=== PATIENT | male | born 1985 | race African-American/Black ===

== ENCOUNTER 2021-10-18 10:04 | Inpatient (IN) ==
[2021-10-18] MEDS ORDERED: ONDANSETRON INJ 2 MG/ML 2 ML VIAL IV STA (10:44)
[2021-10-18] MEDS ORDERED: SODIUM CHLORIDE 0.9% 500 ML IV STA (10:44)
--- NOTE | 2021-10-18 11:02 | XRay Report ---
SINGLE VIEW CHEST CLINICAL HISTORY: Atypical chest pain. Reported history of sickle cell disease. FINDINGS: An AP, portable, upright chest radiograph is obtained. No prior studies are available for c omparison at the time of dictation. The cardiomediastinal silhouette is mildly enlarged. The lungs a nd pleural spaces are clear. No pneumothorax is seen. Sclerotic change is present in both humeral hea ds suggesting avascular necrosis IMPRESSION: 1. The lungs are clear. 2. Mild cardiac enlargement. 3. Findings suggest avascular necrosis of the humeral heads. ACT 112: Negative or not required by law. Electronically signed by: Jose Antonio Angelo M.D. 10/18/2021 11:00 AM
--- NOTE | 2021-10-18 11:24 | Emergency Department Note ---
Impression & Plan Sickle cell anemia with pain ED Provider Note NAME: TAMRA [id number] MARGARITA AGE: 36 SEX: M : 1985 ARRIVES VIA: Ambulance INFORMANT: Patient, ED PROVIDER(S): Enio Ny DO CHIEF COMPLAINT: Sickle cell pain HPI: The patient is a 36-year-old male who presented to the emergency department for an evaluation of sickle cell pain. He notices pain in his hips and his knees. He also notices chest pain as well as upper back pain. He states this is consistent with his previous history of sickle cell crisis. He has a history of cholecystectomy in the past. He does take hydroxyurea. He has been given NSAIDs at the senior living prior to coming to the emergency department. He denies having any nausea or vomiting. He denies having any fever or hemoptysis. He states he has been compliant with his usual outpatient medications. ROS: See above HPI for pertinent positives & negatives. A total of 10 systems reviewed and were otherwise negative. PAST MEDICAL HISTORY: See Below PAST SURGICAL HISTORY: See Below FAMILY HISTORY: See Below SOCIAL HISTORY: See Below HOME MEDICATIONS: See Below ALLERGIES: See Below VITALS: See Below PHYSICAL EXAMINATION: GENERAL: Patient is awake alert in no acute distress patient is resting comfortably and showing no signs of anxiety EYES: The conjunctivae are clear. The pupils are round and reactive. EARS, NOSE, MOUTH AND THROAT: The nose is without any evidence of any deformity. NECK: The neck is nontender and supple. RESPIRATORY: Normal respiratory effort is noted there is no evidence of wheezing rhonchi or rales CARDIOVASCULAR: Regular rate and rhythm noted there no murmurs rubs or gallops normal S1 normal S2. GASTROINTESTINAL: The abdomen is soft. Abdomen is nontender. MUSCULOSKELETAL/EXTREMITIES: There is no evidence of gross deformity full range of motion is noted in the hips and shoulders. SKIN: There is no obvious evidence of any rash. There are no petechiae, pallor or cyanosis noted. NEUROLOGIC: Patient is awake alert and oriented x3 strength is symmetric patellar reflexes are 2+ bilaterally MEDICAL DECISION MAKING: Patient is a 36-year-old male who presented to the emergency department for an evaluation of pain. The patient has a history of sickle cell disease. The patient states he had pain today consistent with his previous episode of sickle cell crisis. The patient was treated with pain medication in the emergency department. He he was also treated with a small fluid bolus. I discussed patient's laboratory and radiographic studies with him. Ultimately he had continued and ongoing pain. He was switched to Dilaudid. Given his difficulty of maintaining good pain control I discussed his case with the on-call [facility]. They have agreed to evaluate the patient in the emergency department for further management and disposition. Triage Nursing notes reviewed. Prior medical records reviewed Vital Signs: reviewed and remarkable for no significant abnormalities Differential diagnosis: Musculoskeletal, disc herniation, fracture, metastatic disease, cord compression, discitis, sciatica, cauda equina, infection, aortic disease, renal colic, gastrointestinal, as well as other pathologies. ER treatment provided: See below Diagnostics interpreted by me: ECG: EKG was obtained in the emergency department. My interpretation is normal sinus rhythm at 61 bpm. There was no ectopy. Nonspecific T wave abnormalities were noted. No previous tracing was available. Cardiac Monitoring: An order was placed for continuous cardiac monitoring. The monitor shows a rate of 67 bpm with sinus rhythm. Laboratory studies: As stated above and show below. Imaging studies: See below Consultation(s): Discussed this case with Tammie who is on-call for the [facility]. Past Med/Surg History Medical History Sickle cell anemia Surgical History Hx of cholecystectomy Social History Smoking Status: Current every day smoker Feels Safe at Home: Yes Home Meds Home Medications Medication Instructions Recorded Confirmed aripiprazole 20 mg tablet 20 mg PO HS 10/18/21 10/18/21 deferasirox 1,120 mg PO DAILY 10/18/21 10/18/21 folic acid 1 mg PO DAILY 10/18/21 10/18/21 hydroxyurea 500 mg capsule 1,000 mg PO HS 10/18/21 10/18/21 sertraline 50 mg PO HS 10/18/21 10/18/21 Results & Data (ED) Vital Signs Vital Signs - 24 hr 10/18/21 10:14 10/18/21 10:44 10/18/21 11:56 Temperature 36.8 C Temperature Source Oral Pulse Rate 60 Pulse Rate [Apical] 59 L Respiratory Rate 18 18 Respiratory Effort / Characteristics Non-Labored Non-Labored Respiratory Depth Normal Normal Blood Pressure 119/72 Blood Pressure [Right Arm] 106/65 Blood Pressure Mean 87 Blood Pressure Mean [Right Arm] 78 Pulse Oximetry 95 98 Oxygen Delivery Method Room Air Room Air Room Air Sepsis Recent Fever Within 48 Hours No Sepsis New/Unexplained Change in Mental Status No Sepsis Action Taken by Nursing No Action Required 10/18/21 13:56 Temperature Temperature Source Pulse Rate Pulse Rate [Apical] 67 Respiratory Rate 18 Respiratory Effort / Characteristics Respiratory Depth Blood Pressure Blood Pressure [Right Arm] 107/66 Blood Pressure Mean Blood Pressure Mean [Right Arm] 79 Pulse Oximetry 97 Oxygen Delivery Method Room Air Sepsis Recent Fever Within 48 Hours Sepsis New/Unexplained Change in Mental Status Sepsis Action Taken by Group Home Medications Current Medication List: was personally reviewed by me Laboratory Data Attestation: I reviewed the patient's lab results. Result diagrams: 10/18/21 11:35 10/18/21 11:35 Lab Results 10/18/21 10/18/21 Range/Units 11:35 11:35 WBC 9.93 (4.8-10.8) K/uL RBC 2.56 L (4.7-6.1) M/uL Hgb 9.4 L (14.0-18.0) g/dL Hct 27.9 L (42-52) % MCV 109.0 H (80-100) fL MCH 36.7 H (25-34) pg MCHC 33.7 (32-36) g/dL RDW Std Deviation 75.8 H (36.4-46.3) fL RDW Coeff of Noah 20.2 H (11.5-14.5) % Plt Count 332 (130-400) K/uL MPV 9.7 (7.4-10.4) fL Immature Gran % (Auto) 1.0 % Neut % (Auto) 59.7 % Lymph % (Auto) 24.9 % Craven % (Auto) 13.3 % Eos % (Auto) 0.6 % Baso % (Auto) 0.5 % Reticulocyte % (Auto) 20.7 H (0.5-2.0) % Neut # (Auto) 5.93 (1.4-6.5) K/uL Lymph # (Auto) 2.47 (1.2-3.4) K/uL Craven # (Auto) 1.32 H (0.11-0.59) K/uL Eos # (Auto) 0.06 (0-0.5) K/uL Baso # (Auto) 0.05 (0-0.2) K/uL Reticulocyte # 0.53 H (0.02-0.10) 10^6/uL Immature Gran # (Auto) 0.10 H (0.00-0.02) K/uL Absolute Nucleated RBC 4.39 H (0-0) K/uL Nucleated RBC % (auto) 44.2 % Platelet Estimate Normal (Normal) Polychromasia 1+ Hypochromasia Present Anisocytosis Present Macrocytosis Present Sickle Cells 1+ [place] Bodies 2+ Sodium 140 (136-145) mmol/L Potassium 3.9 (3.5-5.1) mmol/L Chloride 105 (98-107) mmol/L Carbon Dioxide 28 (21-32) mmol/L Anion Gap 7 (3-11) BUN 8 (6-23) mg/dl Creatinine 0.64 (0.6-1.4) mg/dl Est Cr Clr Drug Dosing 146.3 ml/min Est GFR ( Amer) 144.0 ml/min Est GFR (Non-Af Amer) 124.2 ml/min BUN/Creatinine Ratio 12.5 (10-20) Glucose 88 (70-99(Fasting)) mg/dl Calcium 9.0 (8.5-10.1) mg/dl Total Bilirubin 3.2 H (0.2-1.0) mg/dl AST 41 H (13-39) U/L ALT 46 (7-52) U/L Alkaline Phosphatase 162 H (34-104) U/L Troponin I High Sens 5.0 (0-20) pg/ml Total Protein 7.5 (6.0-8.3) gm/dl Albumin 4.6 (3.4-5.0) gm/dl Globulin 2.9 (2.5-4.0) gm/dl Albumin/Globulin Ratio 1.6 (0.9-2) Lipase 20 (11-82) U/L Administered Medications Hydromorphone HCl (Hydromorphone Inj 1 Mg/Ml Syringe) 1 mg IV Q15M PRN PRN Reason: Pain Stop: 11/01/21 14:39 Last Admin: 10/18/21 14:52 Dose: 1 mg Documented by: [id number] Morphine Sulfate (Morphine Sulfate 4 Mg/Ml 1 Ml Carp\Vial) 4 mg IV Q15M PRN PRN Reason: Pain Stop: 11/01/21 10:43 Last Admin: 10/18/21 13:01 Dose: 4 mg Documented by: [id number] Admin: 10/18/21 11:50 Dose: 4 mg Documented by: [id number] Discontinued Medications Sodium Chloride (Nss) 500 mls @ 999 mls/hr IV .Q31M STA Stop: 10/18/21 11:14 Last Infusion: 10/18/21 12:38 Dose: 0 mls/hr Documented by: [id number] Admin: 10/18/21 11:49 Dose: 999 mls/hr Documented by: [id number] Ondansetron HCl (Ondansetron Inj 2 Mg/Ml 2 Ml Vial) 4 mg IV NOW STA Stop: 10/18/21 10:45 Last Admin: 10/18/21 11:49 Dose: 4 mg Documented by: [id number] Imaging Data Radiologist's Impression: Chest X-Ray 10/18/21 10:44 SINGLE VIEW CHEST CLINICAL HISTORY: Atypical chest pain. Reported history of sickle cell disease. FINDINGS: An AP, portable, upright chest radiograph is obtained. No prior studies are available for comparison at the time of dictation. The cardiomedia stinal silhouette is mildly enlarged. The lungs and pleural spaces are clear. No pneumothorax is seen. Sclerotic change is present in both humeral heads suggesting avascular necrosis IMPRESSION: 1. The lungs are clear. 2. Mild cardiac enlargement. 3. Findings suggest avascular necrosis of the humeral heads. ACT 112: Negative or not required by law. Electronically signed by: Jose Antonio Angelo M.D. 10/18/2021 11:00 AM Discharge Plan Visit Data Chief Complaint: Pain (Generalized) ED Provider: Enio Ny Discharge Problem: Sickle cell anemia with pain Patient Disposition: Being Evaluated by Hospitalist Forms Stand Alone Forms: [facility] Prescriptions Prescriptions: No Action hydroxyurea 500 mg Capsule 1,000 mg PO HS RF: 0 aripiprazole 20 mg Tablet 20 mg PO HS RF: 0 deferasirox 360 MG 1,120 mg PO DAILY RF: 0 folic acid 1 MG 1 mg PO DAILY RF: 0 sertraline 50 MG 50 mg PO HS RF: 0 Referrals Referrals: Torey MORLEY [Primary Care Provider] -
[2021-10-18] MEDS: MoRPHine SULFATE 4 MG/ML 1 ML CARP\\VIAL IV PRN ×2 (11:50→13:01)
[2021-10-18 12:04] LABS: Reticulocyte % 20.7 % (0.5-2.0); Reticulocytes # 0.53 10^6/uL (0.02-0.10)
[2021-10-18 12:32] LABS: Anisocytosis Present; Basophils # (auto) 0.05 K/uL (0-0.2); Basophils % (auto) 0.5 %; Eosinophils # (auto) 0.06 K/uL (0-0.5); Eosinophils % (auto) 0.6 %; Hematocrit (blood only) 27.9 % (42-52); Hemoglobin 9.4 g/dL (14.0-18.0); Howell-Jolly Bodies 2+; Hypochromasia Present; Lymphocytes # (auto) 2.47 K/uL (1.2-3.4); Lymphocytes % (auto) 24.9 %; Macrocytosis Present; Mean Corpuscular Hemoglobin 36.7 pg (25-34); Mean Corpuscular Hgb Conc 33.7 g/dL (32-36); Mean Platelet Volume 9.7 fL (7.4-10.4); Monocytes # (auto) 1.32 K/uL (0.11-0.59); Monocytes % (auto) 13.3 %; Neutrophils # (auto) 5.93 K/uL (1.4-6.5); Neutrophils % (auto) 59.7 %; Nucleated RBC # (auto) 4.39 K/uL (0-0); Nucleated RBC % (auto) 44.2 %; Platelet Count 332 K/uL (130-400); Platelet Estimate Normal (Normal); Polychromasia 1+; RDW Coefficient of Variation 20.2 % (11.5-14.5); RDW Standard Deviation 75.8 fL (36.4-46.3); Red Blood Count 2.56 M/uL (4.7-6.1); Sickle Cells 1+; White Blood Count 9.93 K/uL (4.8-10.8)
[2021-10-18 12:36] LABS: Albumin Globulin Ratio 1.6 (0.9-2); Albumin Level 4.6 gm/dl (3.4-5.0); BUN Creatinine Ratio 12.5 (10-20); Bilirubin,Total 3.2 mg/dl (0.2-1.0); Creatinine Clr Calc Pharmacy 146.3 ml/min; Est GFR (Non-African American) 124.2 ml/min; Globulin 2.9 gm/dl (2.5-4.0); Potassium 3.9 mmol/L (3.5-5.1); Total Protein 7.5 gm/dl (6.0-8.3)
[2021-10-18] MEDS: HYDROmorphone INJ 1 MG/ML SYRINGE IV PRN ×2 (14:52→15:44)
--- NOTE | 2021-10-18 14:53 | History & Physical Report ---
Date of Service October 18, 2021 Assessment & Plan (1) Sickle cell anemia with pain: (2) Sickle cell crisis: (3) Avascular necrosis of bone of shoulder: Plan: This is a 36 yr old incarcerated male from [facility] who presents with b/l knee and chest pain off and on x 3 days. Sickle cell crisis Sickle cell anemia Bilateral knee pain Admit to telemetry Will administer 1 L of IV fluid, received 500 mL in ED Encourage patient to hydrate frequently Control pain with scheduled Tylenol, as needed oxycodone Monitor CBC Continue hydroxyurea, folic acid, deferasirox obtain xr of b/l knees Recent outpatient labs from assisted reveal hemoglobin 9.7, iron 254, TIBC 250, percent saturation 73%, transferrin 242 -from 10/05/2021 Avascular necrosis of bilateral humeral heads Noted on chest x-ray Patient currently denying shoulder pain Consult orthopedics further recommendations, likely secondary to sickle cell disease Personality disorder Anxiety Continue Abilify and Zoloft Nicotine dependence Smokes e-cigarette in assisted declines patch DVT ppx: SQ Lovenox Dispo: tele PCP: [facility] FULL CODE Pt was seen and examined in collaboration with Dr. Pryor, please see addendum History of Present Illness Chief Complaint: B/L Knee Pain x 3 days. Primary Care Provider: [facility] This is a 36 yr old incarcerated male from [facility] who presents with b/l knee and chest pain off and on x 3 days. Pt complains of b/l knee pain x 3 days. Pain is worsening. He also complains of CP that is located in upper central chest. Chest pain is not made worse with exertion, deep breath or cough. He has tried ibuprofen with minimal relief. In ED he received IV morphine w/o relief. He denies recent illness, f/c/s, dizziness, lightheaded, syncope, sob, cough, uri sx, n/v/d, abd pain. He has hx of sickle cell disease. He was dx when he was 2-3 yrs old. +FH of sickle cell in both parents. He does not take any pain medications for his sickle cell. Previously he had taken percocet in past prior to being incarcerated. He would take as needed. He is on deferasirox, folic acid and hydroxyurea for sickle cell. His appetite is good. He is unsure what previous hgb levels were. His records sent from facility were reviewed. Previous hgb on 10/05 was 9.7. Home Medications Medication Instructions Recorded Confirmed Type aripiprazole 20 mg tablet 20 mg PO HS 10/18/21 10/18/21 History deferasirox 1,120 mg PO DAILY 10/18/21 10/18/21 History folic acid 1 mg PO DAILY 10/18/21 10/18/21 History hydroxyurea 500 mg capsule 1,000 mg PO HS 10/18/21 10/18/21 History sertraline 50 mg PO HS 10/18/21 10/18/21 History Past Med/Surg History Medical History Anxiety Personality disorder Sickle cell anemia Surgical History Hx of cholecystectomy Family History (Updated 10/18/21 @ 15:19 by Tammie Richard PA-C) Father Sickle cell anemia Mother Sickle cell anemia Social History (Updated 10/18/21 @ 15:19 by Tammie Richard PA-C) Smoking Status: Former smoker Tobacco Type: E-cigarettes / Vaping Second Hand Exposure: No; Do You Dip or Chew Tobacco: No; Tobacco Cessation Education Requested by Patient: No Hx Alcohol Use: No Hx Substance Use: No Preferred Language: [place] Communication Ability: Effective 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 Pryor addendum for physical exam findings Results & Data Results & Data ([facility]) Vital Signs (Past 12 Hours) Vital Signs Temp Pulse Pulse Resp BP BP Pulse Ox 10/18/21 13:56 67 18 107/66 97 10/18/21 11:56 59 L 18 106/65 98 10/18/21 10:14 36.8 C 60 18 119/72 95 Diagnostic Findings Chest X-Ray 10/18/21 10:44 SINGLE VIEW CHEST CLINICAL HISTORY: Atypical chest pain. Reported history of sickle cell disease. FINDINGS: An AP, portable, upright chest radiograph is obtained. No prior st udies are available for comparison at the time of dictation. The cardiomediastinal silhouette is mildly enlarged. The lungs and pleural spaces are clear. No pneumothorax is seen. Sclerotic change is present in both humeral heads suggesting avascular necrosis IMPRESSION: 1. The lungs are clear. 2. Mild cardiac enlargement. 3. Findings suggest avascular necrosis of the humeral heads. ACT 112: Negative or not required by law. Electronically signed by: Jose Antonio Angelo M.D. 10/18/2021 11:00 AM Medications Administered Medication List Hydromorphone HCl (Hydromorphone Inj 1 Mg/Ml Syringe) 1 mg IV Q15M PRN PRN Reason: Pain Stop: 11/01/21 14:39 Last Admin: 10/18/21 14:52 Dose: 1 mg Documented by: [id number] Morphine Sulfate (Morphine Sulfate 4 Mg/Ml 1 Ml Carp\Vial) 4 mg IV Q15M PRN PRN Reason: Pain Stop: 11/01/21 10:43 Last Admin: 10/18/21 13:01 Dose: 4 mg Documented by: [id number] Admin: 10/18/21 11:50 Dose: 4 mg Documented by: [id number] Discontinued Medications Sodium Chloride (Nss) 500 mls @ 999 mls/hr IV .Q31M STA Stop: 10/18/21 11:14 Last Infusion: 10/18/21 12:38 Dose: 0 mls/hr Documented by: [id number] Admin: 10/18/21 11:49 Dose: 999 mls/hr Documented by: [id number] Ondansetron HCl (Ondansetron Inj 2 Mg/Ml 2 Ml Vial) 4 mg IV NOW STA Stop: 10/18/21 10:45 Last Admin: 10/18/21 11:49 Dose: 4 mg Documented by: [id number] ECG Rate (beats per minute): 61 Rhythm: normal sinus COVID-19 Results Results COVID-19 Adm Lab Results: RBC 2.56 M/uL (4.7-6.1) L 10/18/21 WBC 9.93 K/uL (4.8-10.8) 10/18/21 Hgb 9.4 g/dL (14.0-18.0) L 10/18/21 Hct 27.9 % (42-52) L 10/18/21 Plt Count 332 K/uL (130-400) 10/18/21 Neutrophils (%) (Auto) 59.7 % 10/18/21 Lymphocytes (%) (Auto) 24.9 % 10/18/21 Monocytes # (Auto) 1.32 K/uL (0.11-0.59) H 10/18/21 Eosinophils # (Auto) 0.06 K/uL (0-0.5) 10/18/21 Immature Granulocyte % (Auto) 1.0 % 10/18/21 Neutrophils # (Auto) 5.93 K/uL (1.4-6.5) 10/18/21 Lymphocytes # (Auto) 2.47 K/uL (1.2-3.4) 10/18/21 Monocytes # (Auto) 1.32 K/uL (0.11-0.59) H 10/18/21 Eosinophils # (Auto) 0.06 K/uL (0-0.5) 10/18/21 Basophils # (Auto) 0.05 K/uL (0-0.2) 10/18/21 Immature Granulocyte # (Auto) 0.10 K/uL (0.00-0.02) H 10/18/21 Polychromasia 1+ 10/18/21 Hypochromasia Present 10/18/21 Anisocytosis Present 10/18/21 Macrocytosis Present 10/18/21 Sickle Cells 1+ 10/18/21 [place] Bodies 2+ 10/18/21 Na 140 mmol/L (136-145) 10/18/21 K 3.9 mmol/L (3.5-5.1) 10/18/21 Cl 105 mmol/L (98-107) 10/18/21 CO2 28 mmol/L (21-32) 10/18/21 Anion Gap 7 (3-11) 10/18/21 BUN 8 mg/dl (6-23) 10/18/21 Creatinine 0.64 mg/dl (0.6-1.4) 10/18/21 BUN/Creatinine Ratio 12.5 (10-20) 10/18/21 Glucose Level 88 mg/dl (70-99(Fasting)) 10/18/21 Ca 9.0 mg/dl (8.5-10.1) 10/18/21 Total Bilirubin 3.2 mg/dl (0.2-1.0) H 10/18/21 AST/SGOT 41 U/L (13-39) H 10/18/21 ALT/SGPT 46 U/L (7-52) 10/18/21 Alkaline Phosphatase 162 U/L (34-104) H 10/18/21 Total Protein 7.5 gm/dl (6.0-8.3) 10/18/21 Albumin 4.6 gm/dl (3.4-5.0) 10/18/21 Globulin 2.9 gm/dl (2.5-4.0) 10/18/21 Albumin/Globulin Ratio 1.6 (0.9-2) 10/18/21 SARS-CoV-2, RNA, NAAT NEGATIVE (NEGATIVE) 10/18/21 Chest X-Ray 10/18/21 Code Status & VTE Plan Code Status FULL CODE VTE Prophylaxis Plan VTE Prophylaxis will be ordered: No Supervising Physician Co-Signing Physician Notes Pt is a 36 y/o M from [facility] with hx of sickle cell disease, mood disorder, chronic anemia admitted for vaso occlusive crisis. PE: NAD, well developed Card: Normal S1/S2, no murmur Lungs: CTA, no crackles or wheezing Abd: ND, NT, soft MSK: TTP of the b/l shoulder area (deltoid) and L lateral knee, no swelling of the joints or LE edema Psych: AAOx3, normal affect A/P: Sickle cell disease with Vaso-occlusive crisis: -VSS -increased reti count and chronic anemia on lab - CXR: Lungs are clear but Findings suggest avascular necrosis of the humeral heads. ----- pt was not complaining of shoulder pain: likely chronic in nature ----- however will get ortho consult -will get b/l knee xray - s/p 1.5 L NS bolus - encouraged increased PO intake - per pt he was on prn Percocet at home --- will do Oxycodone 5mg q6hr prn with Tylenol PRN (no need for IV pain meds at this time) -continue home hydroxyurea dose and folic acid -will add daily MVI -trend CBC ---- pt does not know his baseline hgb: but current hgb is similar to the one from 1 week ago -will repeat CMP to trend T bili - Lovenox for DVT ppx Agree with A/P by Tammie Richard PA-C
[2021-10-18] MEDS ORDERED: SODIUM CHLORIDE 0.9% 1000ML 500 ML IV ONE (15:15)
[2021-10-18] MEDS ORDERED: SODIUM CHLORIDE 0.9% 1000ML 1,000 ML IV ONE (15:26)
--- NOTE | 2021-10-18 16:18 | XRay Report ---
XR knee RT 3V, XR knee LT 3V HISTORY: 36 years-old Male r knee pain, sickle cell acute bilateral knee pain in a patient with hist ory of sickle cell anemia COMPARISON: Chest radiograph 10/18/2021 TECHNIQUE: 3 views of the bilateral knees FINDINGS: RIGHT: Heterogeneous sclerotic appearance of the bones with subcortical cyst versus OCD of the lateral femor al condyle measuring 9 mm. No acute fracture, dislocation or opaque foreign body. Small joint effusio n. LEFT: Heterogeneous sclerotic appearance the bones. No acute fracture or dislocation. Trace joint effusion. Enthesophyte of the tibial tuberosity. IMPRESSION: 1. No acute fracture. 2. Subcortical cyst versus OCD of the right lateral femoral condyle. 3. Diffusely heterogeneous sclerotic appearance of the bones likely is likely secondary to chronic an emia associated with the patient's known sickle cell disease. ACT 112: Negative or not required by law. The above report was generated using voice recognition software. It may contain grammatical, syntax o r spelling errors. Electronically signed by: Roge Peña M.D. 10/18/2021 4:16 PM
[2021-10-18] MEDS ORDERED: MAGNESIUM HYDROXIDE SUSP 30 ML UDC PO PRN (17:01)
[2021-10-18] MEDS ORDERED: ALUMINUM/MAGNESIUM SUSP 30 ML UDC PO PRN (17:01)
[2021-10-18] MEDS ORDERED: ACETAMINOPHEN 325 MG TAB PO PRN (17:01)
[2021-10-18] MEDS ORDERED: ONDANSETRON INJ 2 MG/ML 2 ML VIAL IV PRN (17:01)
[2021-10-18] MEDS ORDERED: oxyCODONE HCL IR 5 MG TAB (IMMEDIATE RELEASE) PO PRN (17:01)
[2021-10-18] MEDS: ACETAMINOPHEN 325 MG TAB PO SCH ×2 (17:17→20:54)
[2021-10-18] MEDS: ARIPiprazole 10 MG TAB PO SCH (20:54)
[2021-10-18] MEDS: HYDROXYUREA 500 MG CAP PO SCH (20:54)
[2021-10-18] MEDS: SERTRALINE HCL 50 MG TABLET PO SCH (20:54)
[2021-10-18] MEDS: ENOXAPARIN INJ 40 MG/0.4 ML SYR SQ SCH (21:07)
[2021-10-18] MEDS ORDERED: oxyCODONE HCL IR 5 MG TAB (IMMEDIATE RELEASE) PO STA (21:33)
[2021-10-18] MEDS ORDERED: KETOROLAC TROMETHAMINE 15 MG/ML VIAL IV ONE (23:44)
[2021-10-19 08:07] LABS: Mean Corpuscular Hgb Conc 34.1 g/dL (32-36); Mean Platelet Volume 10.1 fL (7.4-10.4); Platelet Count 315 K/uL (130-400)
[2021-10-19] MEDS: ACETAMINOPHEN 325 MG TAB PO SCH ×4 (08:07→20:55)
[2021-10-19] MEDS: FOLIC ACID 1 MG TAB PO SCH (08:07)
[2021-10-19 08:25] LABS: Albumin Globulin Ratio 1.4 (0.9-2); Albumin Level 4.1 gm/dl (3.4-5.0); BUN Creatinine Ratio 20.3 (10-20); Bilirubin,Total 3.7 mg/dl (0.2-1.0); Calcium 8.7 mg/dl (8.5-10.1); Creatinine Clr Calc Pharmacy 158.7 ml/min; Est GFR (African American) 148.9 ml/min; Est GFR (Non-African American) 128.4 ml/min; Magnesium 1.8 mg/dl (1.7-2.4); Potassium 3.6 mmol/L (3.5-5.1); Total Protein 7.1 gm/dl (6.0-8.3)
[2021-10-19 08:30] LABS: Basophils # (auto) 0.04 K/uL (0-0.2); Basophils % (auto) 0.4 %; Eosinophils # (auto) 0.07 K/uL (0-0.5); Eosinophils % (auto) 0.7 %; Hematocrit (blood only) 27.3 % (42-52); Hemoglobin 9.3 g/dL (14.0-18.0); Immature Granulocytes # (auto) 0.09 K/uL (0.00-0.02); Immature Granulocytes % (auto) 0.9 %; Lymphocytes # (auto) 1.97 K/uL (1.2-3.4); Lymphocytes % (auto) 20.4 %; Mean Corpuscular Hemoglobin 36.8 pg (25-34); Mean Corpuscular Volume 107.9 fL (80-100); Monocytes # (auto) 0.95 K/uL (0.11-0.59); Monocytes % (auto) 9.9 %; Neutrophils # (auto) 6.52 K/uL (1.4-6.5); Neutrophils % (auto) 67.7 %; Nucleated RBC # (auto) 4.01 K/uL (0-0); Nucleated RBC % (auto) 41.7 %; Polychromasia 2+; RDW Coefficient of Variation 19.6 % (11.5-14.5); RDW Standard Deviation 74.9 fL (36.4-46.3); Red Blood Count 2.53 M/uL (4.7-6.1); Sickle Cells 1+; Spherocytes 1+; Target Cells 1+; White Blood Count 9.64 K/uL (4.8-10.8)
--- NOTE | 2021-10-19 09:10 | Hospitalist Progress Note ---
Date of Service October 19, 2021 Assessment & Plan (1) Sickle cell anemia with pain: (2) Avascular necrosis of bone of shoulder: Plan: This is a 36 yr old incarcerated male from [facility] who presents with b/l knee and chest pain off and on x 3 days. Sickle cell crisis Sickle cell anemia Bilateral knee pain, R hip pain Increased reti count on admission (20.7 %) and chronic anemia on lab Hgb above 9 CXR: Lungs are clear but Findings suggest avascular necrosis of the humeral heads. Admitted to telemetry received IVF on admission, cont. w/ IVF Encourage patient to hydrate frequently Control pain with scheduled Tylenol, as needed oxycodone Monitor CBC, retic count, LDH Continue hydroxyurea, folic acid, deferasirox obtained Xray of b/l knees Recent outpatient labs from skilled nursing reveal hemoglobin 9.7, iron 254, TIBC 250, percent saturation 73%, transferrin 242 - from 10/05/2021 Xray knees FINDINGS: RIGHT: Heterogeneous sclerotic appearance of the bones with subcortical cyst versus OCD of the lateral femoral condyle measuring 9 mm. No acute fracture, dislocation or opaque foreign body. Small joint effusion. LEFT: Heterogeneous sclerotic appearance the bones. No acute fracture or dislocation. Trace joint effusion. Enthesophyte of the tibial tuberosity. IMPRESSION: 1. No acute fracture. 2. Subcortical cyst versus OCD of the right lateral femoral condyle. 3. Diffusely heterogeneous sclerotic appearance of the bones likely is likely secondary to chronic anemia associated with the patient's known sickle cell disease. Xray R hip/ pelvis IMPRESSION: 1. No acute fracture or dislocation. 2. Avascular necrosis of the femoral heads without articular collapse. 3. Diffusely heterogeneous sclerotic appearance of the bones likely is likely secondary to chronic anemia associated with the patient's known sickle cell disease. Sclerotic metastasis could cause a similar appearance however is considered less likely. Avascular necrosis of bilateral humeral heads, femoral heads Noted on chest x-ray Patient currently denying shoulder pain Reports R hip pain Consulted orthopedics for further recommendations, likely secondary to sickle cell disease Personality disorder Anxiety Continue Abilify and Zoloft Nicotine dependence Smokes e-cigarette in skilled nursing declines patch DVT ppx: SQ Lovenox Dispo: tele PCP: [facility] FULL CODE Admission and Anticipated Discharge Date Admission Date: October 18, 2021 Subjective Patient seen in follow-up of vaso-occlusive crisis in the setting of sickle cell disease Presented with bilateral knee pain Today also complains of right hip pain Denies fevers, chills, breathing comfortably, denies any cough, reports on and off chest discomfort Denies abdominal pain, nausea vomiting Review of Systems Review of Systems: All systems reviewed & are unremarkable except as noted in Subjective Physical Exam Physical Exam: General: NAD, well developed Cardiac: Normal S1/S2, no murmur Respiratory: CTA, no crackles or wheezing Abd: ND, NT, soft MSK: TTP of the b/l shoulder area (deltoid) and b/l knee, R hip, no swelling of the joints or LE edema Psych: AAOx3, normal affect Results & Data Results & Data ([facility]) Vital Signs (Past 12 Hours) Vital Signs Temp Pulse Pulse Pulse Resp BP BP 10/19/21 07:17 36.9 C 65 18 110/64 10/19/21 07:10 76 10/19/21 03:42 36.8 C 79 18 109/62 10/18/21 22:35 36.9 C 72 16 111/68 Pulse Ox 10/19/21 07:17 97 10/19/21 07:10 10/19/21 03:42 97 10/18/21 22:35 96 Laboratory Results 10/19/21 10/19/21 10/18/21 Range/Units 07:25 07:25 14:57 WBC 9.64 (4.8-10.8) K/uL RBC 2.53 L (4.7-6.1) M/uL Hgb 9.3 L (14.0-18.0) g/dL Hct 27.3 L (42-52) % MCV 107.9 H (80-100) fL MCH 36.8 H (25-34) pg MCHC 34.1 (32-36) g/dL RDW Std Deviation 74.9 H (36.4-46.3) fL RDW Coeff of Noah 19.6 H (11.5-14.5) % Plt Count 315 (130-400) K/uL MPV 10.1 (7.4-10.4) fL Immature Gran % (Auto) 0.9 % Neut % (Auto) 67.7 % Lymph % (Auto) 20.4 % [place] % (Auto) 9.9 % Eos % (Auto) 0.7 % Baso % (Auto) 0.4 % Reticulocyte % (Auto) (0.5-2.0) % Neut # (Auto) 6.52 H (1.4-6.5) K/uL Lymph # (Auto) 1.97 (1.2-3.4) K/uL [place] # (Auto) 0.95 H (0.11-0.59) K/uL Eos # (Auto) 0.07 (0-0.5) K/uL Baso # (Auto) 0.04 (0-0.2) K/uL Reticulocyte # (0.02-0.10) 10^6/uL Immature Gran # (Auto) 0.09 H (0.00-0.02) K/uL Absolute Nucleated RBC 4.01 H (0-0) K/uL Nucleated RBC % (auto) 41.7 % Platelet Estimate (Normal) Polychromasia 2+ Hypochromasia Anisocytosis Macrocytosis Spherocytes 1+ Sickle Cells 1+ Target Cells 1+ [place] Bodies Sickle Cell Screen Sodium 137 (136-145) mmol/L Potassium 3.6 (3.5-5.1) mmol/L Chloride 103 (98-107) mmol/L Carbon Dioxide 27 (21-32) mmol/L Anion Gap 7 (3-11) BUN 12 (6-23) mg/dl Creatinine 0.59 L (0.6-1.4) mg/dl Est Cr Clr Drug Dosing 158.7 ml/min Est GFR ( Amer) 148.9 ml/min Est GFR (Non-Af Amer) 128.4 ml/min BUN/Creatinine Ratio 20.3 H (10-20) Glucose 95 (70-99(Fasting)) mg/dl Calcium 8.7 (8.5-10.1) mg/dl Magnesium 1.8 (1.7-2.4) mg/dl Total Bilirubin 3.7 H (0.2-1.0) mg/dl AST 39 (13-39) U/L ALT 44 (7-52) U/L Alkaline Phosphatase 143 H (34-104) U/L Troponin I High Sens (0-20) pg/ml Total Protein 7.1 (6.0-8.3) gm/dl Albumin 4.1 (3.4-5.0) gm/dl Globulin 3.0 (2.5-4.0) gm/dl Albumin/Globulin Ratio 1.4 (0.9-2) Lipase (11-82) U/L SARS-CoV-2, RNA, NAAT NEGATIVE (NEGATIVE) 10/18/21 10/18/21 10/18/21 Range/Units 11:35 11:35 11:35 WBC 9.93 (4.8-10.8) K/uL RBC 2.56 L (4.7-6.1) M/uL Hgb 9.4 L (14.0-18.0) g/dL Hct 27.9 L (42-52) % MCV 109.0 H (80-100) fL MCH 36.7 H (25-34) pg MCHC 33.7 (32-36) g/dL RDW Std Deviation 75.8 H (36.4-46.3) fL RDW Coeff of Noah 20.2 H (11.5-14.5) % Plt Count 332 (130-400) K/uL MPV 9.7 (7.4-10.4) fL Immature Gran % (Auto) 1.0 % Neut % (Auto) 59.7 % Lymph % (Auto) 24.9 % [place] % (Auto) 13.3 % Eos % (Auto) 0.6 % Baso % (Auto) 0.5 % Reticulocyte % (Auto) 20.7 H (0.5-2.0) % Neut # (Auto) 5.93 (1.4-6.5) K/uL Lymph # (Auto) 2.47 (1.2-3.4) K/uL [place] # (Auto) 1.32 H (0.11-0.59) K/uL Eos # (Auto) 0.06 (0-0.5) K/uL Baso # (Auto) 0.05 (0-0.2) K/uL Reticulocyte # 0.53 H (0.02-0.10) 10^6/uL Immature Gran # (Auto) 0.10 H (0.00-0.02) K/uL Absolute Nucleated RBC 4.39 H (0-0) K/uL Nucleated RBC % (auto) 44.2 % Platelet Estimate Normal (Normal) Polychromasia 1+ Hypochromasia Present Anisocytosis Present Macrocytosis Present Spherocytes Sickle Cells 1+ Target Cells [place] Bodies 2+ Sickle Cell Screen Pending Sodium 140 (136-145) mmol/L Potassium 3.9 (3.5-5.1) mmol/L Chloride 105 (98-107) mmol/L Carbon Dioxide 28 (21-32) mmol/L Anion Gap 7 (3-11) BUN 8 (6-23) mg/dl Creatinine 0.64 (0.6-1.4) mg/dl Est Cr Clr Drug Dosing 146.3 ml/min Est GFR ( Amer) 144.0 ml/min Est GFR (Non-Af Amer) 124.2 ml/min BUN/Creatinine Ratio 12.5 (10-20) Glucose 88 (70-99(Fasting)) mg/dl Calcium 9.0 (8.5-10.1) mg/dl Magnesium (1.7-2.4) mg/dl Total Bilirubin 3.2 H (0.2-1.0) mg/dl AST 41 H (13-39) U/L ALT 46 (7-52) U/L Alkaline Phosphatase 162 H (34-104) U/L Troponin I High Sens 5.0 (0-20) pg/ml Total Protein 7.5 (6.0-8.3) gm/dl Albumin 4.6 (3.4-5.0) gm/dl Globulin 2.9 (2.5-4.0) gm/dl Albumin/Globulin Ratio 1.6 (0.9-2) Lipase 20 (11-82) U/L SARS-CoV-2, RNA, NAAT (NEGATIVE) Medications Administered Current Inpatient Medications Acetaminophen (Acetaminophen 325 Mg Tab) 650 mg PO Q4H PRN PRN Reason: Pain or Fever Stop: 11/17/21 17:00 Acetaminophen (Acetaminophen 325 Mg Tab) 650 mg PO QID [facility] Stop: 11/17/21 17:29 Last Admin: 10/19/21 08:07 Dose: 650 mg Documented by: Al Hydrox/Mg Hydrox/Simethicone (Aluminum/Magnesium Susp 30 Ml Udc) 15 ml PO Q4H PRN PRN Reason: Dyspepsia Stop: 11/17/21 17:00 Aripiprazole (Aripiprazole 10 Mg Tab) 20 mg PO HS [facility] Stop: 11/17/21 20:59 Last Admin: 10/18/21 20:54 Dose: 20 mg Documented by: Enoxaparin Sodium (Enoxaparin Inj 40 Mg/0.4 Ml Syr) 40 mg SQ HS [facility] Stop: 11/17/21 20:59 Last Admin: 10/18/21 21:07 Dose: Not Given Documented by: Folic Acid (Folic Acid 1 Mg Tab) 1 mg PO DAILY [facility] Stop: 11/18/21 08:59 Last Admin: 10/19/21 08:07 Dose: 1 mg Documented by: Hydroxyurea (Hydroxyurea 500 Mg Cap) 1,000 mg PO [facility] Stop: 11/17/21 20:59 Last Admin: 10/18/21 20:54 Dose: 1,000 mg Documented by: Magnesium Hydroxide (Magnesium Hydroxide Susp 30 Ml Udc) 30 ml PO Q12H PRN PRN Reason: Constipation Stop: 11/17/21 17:00 Miscellaneous (Deferasirox: Order Awaiting Action) 1 ea N/A QS [facility] Stop: 11/18/21 17:59 Ondansetron HCl (Ondansetron Inj 2 Mg/Ml 2 Ml Vial) 4 mg IV Q6H PRN PRN Reason: Nausea Stop: 11/17/21 17:00 Oxycodone HCl (Oxycodone Hcl Ir 5 Mg Tab (Immediate Release)) 5 mg PO Q4H PRN PRN Reason: Pain Stop: 11/01/21 17:00 Polyethylene Glycol (Polyethylene (Miralax) 17 Gm Pack) 17 gm PO DAILY PRN PRN Reason: Constipation Stop: 11/17/21 17:00 Sertraline HCl (Sertraline Hcl 50 Mg Tablet) 50 mg PO [facility] Stop: 11/17/21 20:59 Last Admin: 10/18/21 20:54 Dose: 50 mg Documented by:
[2021-10-19] MEDS: oxyCODONE HCL IR 5 MG TAB (IMMEDIATE RELEASE) PO PRN ×3 (09:35→17:06)
[2021-10-19] MEDS: SODIUM CHLORIDE 0.9% 1000ML 1,000 ML IV SCH ×2 (09:36→17:13)
--- NOTE | 2021-10-19 11:14 | XRay Report ---
XR hip RT 2V w pelvis HISTORY: 36 years-old Male R hip pain in setting of sickle cell acute right-sided hip pain patient w ith history of sickle cell disease COMPARISON: Knee and chest radiograph 10/18/2021 TECHNIQUE: AP view of the pelvis with 2 views of the right hip FINDINGS: Mild joint space narrowing of the left femoral acetabular joint. Diffusely sclerotic osseous structur es. AVN changes are noted involving the bilateral femoral heads without articular collapse. No acute fracture or dislocation. Unremarkable soft tissues. IMPRESSION: 1. No acute fracture or dislocation. 2. Avascular necrosis of the femoral heads without articular collapse. 3. Diffusely heterogeneous sclerotic appearance of the bones likely is likely secondary to chronic an emia associated with the patient's known sickle cell disease. Sclerotic metastasis could cause a laith lar appearance however is considered less likely. ACT 112: Negative or not required by law. The above report was generated using voice recognition software. It may contain grammatical, syntax o r spelling errors. Electronically signed by: Roge Peña M.D. 10/19/2021 11:12 AM
[2021-10-19] MEDS ORDERED: MoRPHine SULFATE 2 MG/ML CARP IV STA (13:33)
[2021-10-19] MEDS: POLYETHYLENE (MIRALAX) 17 GM PACK PO PRN (17:11)
--- NOTE | 2021-10-19 18:52 | Orthopedic Consultation ---
Date of Consultation October 19, 2021 Assessment & Plan (1) Avascular necrosis of bone of shoulder: Radiographic avascular necrosis of bilateral proximal humerus not overly symptomatic. Patient with known sickle cell disease. Patient has evidence of avascular necrosis changes both knees and both hips as well. Patient clearly has multifocal disease. Recommendations are to MRI the most symptomatic joints and discuss treatment options. He does not have advanced collapse that would require replacement surgery. Other options are core decompression and multitude of options but increased risk of surgery and increased complication risk due to sickle cell disease. These types of cases are best treated at a tertiary care center with elective surgery. Would complete work-up with MRI of right hip and right knee and can discuss further treatment options. Observation bilateral shoulders for now due to minimal symptoms. History of Present Illness Reason for Consultation: AVN shoulders on x-ray of chest Attending Physician: Fantasma Miller MD History of Present Illness 36-year-old male with known sickle cell disease presents with increasing right knee pain and hip pain. Home Medications Medication Instructions Recorded Confirmed Type aripiprazole 20 mg tablet 20 mg PO HS 10/18/21 10/18/21 History deferasirox 1,120 mg PO DAILY 10/18/21 10/18/21 History folic acid 1 mg PO DAILY 10/18/21 10/18/21 History hydroxyurea 500 mg capsule 1,000 mg PO HS 10/18/21 10/18/21 History sertraline 50 mg PO HS 10/18/21 10/18/21 History Patient History Medical History Anxiety Personality disorder Sickle cell anemia Surgical History Hx of cholecystectomy Family History Father Sickle cell anemia Mother Sickle cell anemia Social History Smoking Status: Former smoker Tobacco Type: E-cigarettes / Vaping Second Hand Exposure: No; Do You Dip or Chew Tobacco: No; Tobacco Cessation Education Requested by Patient: No Hx Alcohol Use: No Hx Substance Use: No Preferred Language: Sinhala Communication Ability: Effective Fish Dressing Machine Feeder Required: No Beliefs That Will Affect Care: None marital status: Unknown Current Living Situation: Other Current Living Situation Comment: Snf Other Information That Helps Us Care for You: No Feels Safe at Home: Yes Safety Concerns: Feels Safe At This Time Assistive Devices: None Review of Systems Review of Systems: Patient relatively asymptomatic in his shoulders had some minor pain but main problem is his right hip and right knee. Knee hurts more than his hip. Physical Exam Physical Exam: Patient is good range of motion both hips but has some pain with flexion and rotation right hip and some tenderness over the greater trochanter on the right hip. Patient's right knee is a small effusion left knee no effusion good range of motion both knees no instability either knee. Right knee most tender over the proximal medial tibial plateau. Patient walks with a mild antalgic gait right sided. Patient is in restraints due to being a prisoner. Distal neurological exam intact. Results & Data ([facility]) Vital Signs (Past 12 Hours) Vital Signs Temp Pulse Pulse Resp BP BP Pulse Ox 10/19/21 17:40 97 10/19/21 17:15 90 10/19/21 17:01 10/19/21 15:04 37.1 C 75 18 115/72 90 10/19/21 14:16 73 10/19/21 11:56 36.7 C 73 16 107/65 90 10/19/21 10:45 93 10/19/21 07:17 36.9 C 65 18 110/64 97 10/19/21 07:10 76 Pulse Ox 10/19/21 17:40 10/19/21 17:15 10/19/21 17:01 95 10/19/21 15:04 10/19/21 14:16 10/19/21 11:56 10/19/21 10:45 10/19/21 07:17 10/19/21 07:10 Diagnostic Findings Multiple areas of osteonecrosis both hips both knees both shoulders no gene collapse of the joint noted. Possible lateral femoral condyle lesion per radiology difficult to review films with markers over the films.
[2021-10-19] MEDS ORDERED: KETOROLAC TROMETHAMINE 15 MG/ML VIAL IV ONE (20:34)
[2021-10-19] MEDS: ARIPiprazole 10 MG TAB PO SCH (20:55)
[2021-10-19] MEDS: ENOXAPARIN INJ 40 MG/0.4 ML SYR SQ SCH (20:56)
[2021-10-19] MEDS: SERTRALINE HCL 50 MG TABLET PO SCH (20:56)
[2021-10-19] MEDS: HYDROXYUREA 500 MG CAP PO SCH (20:56)
--- NOTE | 2021-10-19 21:07 | Electrocardiogram Report ---
Test Reason : Blood Pressure : / mmHG Vent. Rate : 061 BPM Atrial Rate : 061 BPM P-R Int : 152 ms QRS Dur : 082 ms QT Int : 434 ms P-R-T Axes : 032 004 032 degrees QTc Int : 436 ms Normal sinus rhythm Minimal voltage criteria for LVH, may be normal variant Borderline ECG No previous ECGs available Confirmed by Luiz Britt ([id number]) on 10/19/2021 9:06:57 PM Referred By: Confirmed By:Luiz Britt
[2021-10-20] MEDS: SODIUM CHLORIDE 0.9% 1000ML 1,000 ML IV SCH ×3 (01:44→17:48)
[2021-10-20 07:17] LABS: Reticulocyte % 21.3 % (0.5-2.0); Reticulocytes # 0.49 10^6/uL (0.02-0.10)
[2021-10-20 07:36] LABS: Anion Gap 5 (3-11); BUN Creatinine Ratio 16.1 (10-20); Bilirubin,Total 2.5 mg/dl (0.2-1.0); Blood Urea Nitrogen 9 mg/dl (6-23); Calcium 8.2 mg/dl (8.5-10.1); Carbon Dioxide 27 mmol/L (21-32); Chloride 106 mmol/L (98-107); Creatinine Clr Calc Pharmacy 167.2 ml/min; Est GFR (African American) > 150.0 ml/min; Est GFR (Non-African American) 131.2 ml/min; Glucose 86 mg/dl (70-99(Fasting)); Iron 55 mcg/dl (35-175); Magnesium 1.8 mg/dl (1.7-2.4); Potassium 3.6 mmol/L (3.5-5.1); Sodium 138 mmol/L (136-145); Transferrin 177 mg/dl (200-360)
--- NOTE | 2021-10-20 07:52 | Hospitalist Progress Note ---
Date of Service October 20, 2021 Assessment & Plan (1) Sickle cell anemia with pain: (2) Avascular necrosis of bone of shoulder: Plan: This is a 36 yr old incarcerated male from [facility] nursing home who presents with b/l knee and chest pain off and on x 3 days. Sickle cell crisis Sickle cell anemia Bilateral knee pain, R hip pain Increased reti count on admission (20.7 %) and chronic anemia on lab Hgb above 9 CXR: Lungs are clear but Findings suggest avascular necrosis of the humeral heads. Admitted to telemetry received IVF on admission, cont. w/ IVF Encourage patient to hydrate frequently Control pain with scheduled Tylenol, as needed oxycodone, prn toradol Monitor CBC, retic count, LDH Continue hydroxyurea, folic acid, deferasirox obtained Xray of b/l knees Recent outpatient labs from nursing home reveal hemoglobin 9.7, iron 254, TIBC 250, percent saturation 73%, transferrin 242 - from 10/05/2021 Xray knees FINDINGS: RIGHT: Heterogeneous sclerotic appearance of the bones with subcortical cyst versus OCD of the lateral femoral condyle measuring 9 mm. No acute fracture, dislocation or opaque foreign body. Small joint effusion. LEFT: Heterogeneous sclerotic appearance the bones. No acute fracture or dislocation. Trace joint effusion. Enthesophyte of the tibial tuberosity. IMPRESSION: 1. No acute fracture. 2. Subcortical cyst versus OCD of the right lateral femoral condyle. 3. Diffusely heterogeneous sclerotic appearance of the bones likely is likely secondary to chronic anemia associated with the patient's known sickle cell disease. Xray R hip/ pelvis IMPRESSION: 1. No acute fracture or dislocation. 2. Avascular necrosis of the femoral heads without articular collapse. 3. Diffusely heterogeneous sclerotic appearance of the bones likely is likely secondary to chronic anemia associated with the patient's known sickle cell disease. Sclerotic metastasis could cause a similar appearance however is considered less likely. Avascular necrosis of bilateral humeral heads, femoral heads Noted on chest x-ray Patient currently denying shoulder pain Reports R hip pain Consulted orthopedics for further recommendations, likely secondary to sickle cell disease Obtained MRI of right hip and right knee R hip IMPRESSION: 1. There is avascular necrosis of the proximal femora, left greater than right. 2. No acute fracture is seen. 3. There is mild marrow edema within the greater trochanter of the right proximal femur with surrounding soft tissue edema adjacent to the attachment of the gluteus medius tendon. This is of indeterminate significance, and may be related to contusion. An enthesitis could have this appearance, or this could potentially be related to altered biomechanics. Clinical correlation will be essential. 4. Diffuse marrow abnormality seen throughout the bony pelvis and proximal femora is likely related to the patient's history of underlying sickle cell disease. Sclerotic change was seen by x-ray, and although considered much less likely metastatic disease would be impossible to exclude. 5. Trace pelvic ascites. R knee IMPRESSION: 1. Degraded exam. 2. Bone infarcts of the distal femur and proximal tibia with avascular necrosis of the left femoral head. 3. Small joint effusion. No intra-articular loose body. 4. No acute meniscal or ligamentous injury of the knee. 5. Diffusely abnormal appearance of the bone marrow redemonstrated, likely secondary to chronic anemia associated with the patient's known sickle cell disease. Per orthopedics Patient has multifocal avascular necrosis multiple bones both shoulders both knees both hips. He has what appears to be a stable osteochondral fracture lateral femoral condyle right knee. He has a symmetrical inflammation to the hip musculature and greater trochanter no clear history of trauma. Initial treatment would be nonsteroidal anti-inflammatory medication I would recommend meloxicam if cleared by medicine. He states that on a regular basis for several months and do some light physical therapy. Pain management otherwise as necessary. Possible surgical intervention could include drilling of OCD lesion internal fixation of OCD lesion, possible core decompression and stem cell injections. These treatments and sickle cell disease do not have as good of a track record as people without sickle cell disease and may not prevent progression to further degeneration and requirement of an arthroplasty which also has increased risk for failure and people sickle cell disease. For these reasons I recommend he follow-up at a [facility] tertiary care center for the most updated care if he were to choose of surgical intervention. Patient may benefit from a hinged knee brace for support to the right knee and this could be ordered orthotics department if we have that type of brace at the hospital but he may need to have this ordered from medical supply store as an outpatient. Personality disorder Anxiety Continue Abilify and Zoloft Nicotine dependence Smokes e-cigarette in nursing home declines patch DVT ppx: SQ Lovenox Dispo: tele PCP: [facility] FULL CODE Admission and Anticipated Discharge Date Admission Date: October 18, 2021 Subjective Patient seen in follow-up of vaso-occlusive crisis in the setting of sickle cell disease Presented with bilateral knee pain Then also complained of right hip pain Denies fevers, chills, breathing comfortably, denies any cough, reports on and off chest discomfort Denies abdominal pain, nausea vomiting Review of Systems Review of Systems: All systems reviewed & are unremarkable except as noted in Subjective Physical Exam Physical Exam: General: NAD, well developed Cardiac: Normal S1/S2, no murmur Respiratory: CTA, no crackles or wheezing Abd: ND, NT, soft MSK: TTP of the b/l shoulder area (deltoid) and b/l knee, R hip, no swelling of the joints or LE edema Psych: AAOx3, normal affect Results & Data Results & Data ([facility]) Vital Signs (Past 12 Hours) Vital Signs Temp Pulse Pulse Resp BP BP Pulse Ox 10/20/21 07:00 61 10/20/21 03:14 36.6 C 60 18 100/62 98 10/19/21 23:28 36.5 C 65 16 93/53 L 97 Medications Administered Current Inpatient Medications Acetaminophen (Acetaminophen 325 Mg Tab) 650 mg PO Q4H PRN PRN Reason: Pain or Fever Stop: 11/17/21 17:00 Acetaminophen (Acetaminophen 325 Mg Tab) 650 mg PO QID COUNTS INCLUDE 234 BEDS AT THE [facility] Stop: 11/17/21 17:29 Last Admin: 10/19/21 20:55 Dose: 650 mg Documented by: Al Hydrox/Mg Hydrox/Simethicone (Aluminum/Magnesium Susp 30 Ml Udc) 15 ml PO Q4H PRN PRN Reason: Dyspepsia Stop: 11/17/21 17:00 Aripiprazole (Aripiprazole 10 Mg Tab) 20 mg PO HS COUNTS INCLUDE 234 BEDS AT THE [facility] Stop: 11/17/21 20:59 Last Admin: 10/19/21 20:55 Dose: 20 mg Documented by: Enoxaparin Sodium (Enoxaparin Inj 40 Mg/0.4 Ml Syr) 40 mg SQ [facility] Stop: 11/17/21 20:59 Last Admin: 10/19/21 20:56 Dose: Not Given Documented by: Folic Acid (Folic Acid 1 Mg Tab) 1 mg PO DAILY [facility] Stop: 11/18/21 08:59 Last Admin: 10/19/21 08:07 Dose: 1 mg Documented by: Hydroxyurea (Hydroxyurea 500 Mg Cap) 1,000 mg PO HS [facility] Stop: 11/17/21 20:59 Last Admin: 10/19/21 20:56 Dose: 1,000 mg Documented by: Sodium Chloride (Nss 1000ml) 1,000 mls @ 125 mls/hr IV .Q8H [facility] Stop: 11/18/21 09:14 Last Admin: 10/20/21 01:44 Dose: 125 mls/hr Documented by: Magnesium Hydroxide (Magnesium Hydroxide Susp 30 Ml Udc) 30 ml PO Q12H PRN PRN Reason: Constipation Stop: 11/17/21 17:00 Miscellaneous (Deferasirox: Order Awaiting Action) 1 ea N/A QS COUNTS INCLUDE 234 BEDS AT THE [facility] Stop: 11/18/21 17:59 Last Admin: 10/20/21 07:09 Dose: Not Given Documented by: Ondansetron HCl (Ondansetron Inj 2 Mg/Ml 2 Ml Vial) 4 mg IV Q6H PRN PRN Reason: Nausea Stop: 11/17/21 17:00 Oxycodone HCl (Oxycodone Hcl Ir 5 Mg Tab (Immediate Release)) 10 mg PO Q4H PRN PRN Reason: Pain Stop: 11/01/21 17:00 Last Admin: 10/19/21 17:06 Dose: 10 mg Documented by: Polyethylene Glycol (Polyethylene (Miralax) 17 Gm Pack) 17 gm PO DAILY PRN PRN Reason: Constipation Stop: 11/17/21 17:00 Last Admin: 10/19/21 17:11 Dose: 17 gm Documented by: Sertraline HCl (Sertraline Hcl 50 Mg Tablet) 50 mg PO HS COUNTS INCLUDE 234 BEDS AT THE [facility] Stop: 11/17/21 20:59 Last Admin: 10/19/21 20:56 Dose: 50 mg Documented by:
[2021-10-20 07:53] LABS: Ferritin 754.3 ng/ml (8-388)
[2021-10-20 08:05] LABS: Hemoglobin 8.5 g/dL (14.0-18.0); Mean Corpuscular Hemoglobin 36.8 pg (25-34); Mean Corpuscular Volume 108.2 fL (80-100); Mean Platelet Volume 9.6 fL (7.4-10.4); Nucleated RBC # (auto) 2.54 K/uL (0-0); Nucleated RBC % (auto) 31.2 %; Platelet Count 285 K/uL (130-400); RDW Coefficient of Variation 19.4 % (11.5-14.5); RDW Standard Deviation 72.3 fL (36.4-46.3); Red Blood Count 2.31 M/uL (4.7-6.1); White Blood Count 8.15 K/uL (4.8-10.8)
[2021-10-20] MEDS: FOLIC ACID 1 MG TAB PO SCH (08:24)
[2021-10-20] MEDS: ACETAMINOPHEN 325 MG TAB PO SCH ×4 (08:24→20:02)
[2021-10-20] MEDS: oxyCODONE HCL IR 5 MG TAB (IMMEDIATE RELEASE) PO PRN ×3 (08:24→17:58)
--- NOTE | 2021-10-20 13:59 | Magnetic Resonance Report ---
MR knee RT wo con CLINICAL HISTORY: 36 years-old Male with avascular necrosis, pain. Acute right knee pain in patient with history of sickle cell disease COMPARISON: Right knee radiographs 10/18/2021 TECHNIQUE: Multiplanar, multisequence MRI of the right knee was performed without intravenous contras t. FINDINGS: Motion degraded exam. Some of the sequences were repeated. MENISCI: The medial and lateral meniscus are normal in position, morphology and signal. CRUCIATE LIGAMENTS: The anterior and posterior cruciate ligaments are normal in signal, morphology an d course. COLLATERAL LIGAMENTS: The popliteus tendon, biceps femoris tendon, fibular collateral ligament and il iotibial band are intact. The superficial and deep components of the medial collateral ligament are intact. EXTENSOR MECHANISM: The quadriceps and patellar tendons are intact. The medial and lateral patellar r etinacula are intact. KNEE JOINT: Small joint effusion. No intra-articular loose body identified. There is a 1.8 x 1.0 cm f ocus of avascular necrosis noted involving the mid posterior weightbearing aspect of the lateral femo ral condyle correlating with the radiographic abnormality. Minimal associated cortical flattening wit h low to intermediate grade chondromalacia. BONE MARROW: Diffuse abnormal appearance of the bone marrow with decreased T1 marrow signal. Bone inf arcts of the distal femur and proximal tibia. Relatively preserved marrow signal within the proximal fibula and patella. Subcortical cystic changes are noted involving the posterior aspect of the latera l tibial plateau. SOFT TISSUES: Trace Kwok's cyst. IMPRESSION: 1. Degraded exam. 2. Bone infarcts of the distal femur and proximal tibia with avascular necrosis of the left femoral h ead. 3. Small joint effusion. No intra-articular loose body. 4. No acute meniscal or ligamentous injury of the knee. 5. Diffusely abnormal appearance of the bone marrow redemonstrated, likely secondary to chronic anemi a associated with the patient's known sickle cell disease. ACT 112: Negative or not required by law. The above report was generated using voice recognition software. It may contain grammatical, syntax o r spelling errors. Electronically signed by: Roge Peña M.D. 10/20/2021 1:56 PM
--- NOTE | 2021-10-20 14:37 | Magnetic Resonance Report ---
MRI OF THE RIGHT HIP WITHOUT IV CONTRAST CLINICAL HISTORY: Avascular necrosis. History of sickle cell disease. Right hip pain. COMPARISON STUDY: Radiographs of the right hip dated 10/19/2021. TECHNIQUE: MRI of the right hip is performed utilizing various T1 and T2-weighted sequences in the ax ial, sagittal, and coronal planes. IV contrast was not administered for this examination. FINDINGS: There is diffuse marrow signal abnormality seen throughout the hips and visualized bony pel vis, likely representing sclerotic change secondary to sickle cell disease. There is evidence of avas cular necrosis of the proximal femora bilaterally, left greater than right. There is marrow edema wit hin the left femoral head with serpiginous subchondral sclerosis and cortical collapse. This is consi stent with stage IV disease. There is a subchondral crescent sign involving the right femoral head wi th mild marrow edema. No definite cortical collapse is seen. This is consistent with stage III diseas e. There are trace joint effusions, right slightly larger than left. There is mild marrow edema withi n the greater trochanter of the right proximal femur with soft tissue edema posterior to the greater trochanter along the attachment of the gluteus medius tendon. The gluteal tendons appear intact. The origin of the hamstrings tendons are maintained. The bladder is distended. Trace pelvic ascites is ob served. The regional musculature is normal in bulk and signal intensity. IMPRESSION: 1. There is avascular necrosis of the proximal femora, left greater than right. 2. No acute fracture is seen. 3. There is mild marrow edema within the greater trochanter of the right proximal femur with surround ing soft tissue edema adjacent to the attachment of the gluteus medius tendon. This is of indetermina te significance, and may be related to contusion. An enthesitis could have this appearance, or this c ould potentially be related to altered biomechanics. Clinical correlation will be essential. 4. Diffuse marrow abnormality seen throughout the bony pelvis and proximal femora is likely related t o the patient's history of underlying sickle cell disease. Sclerotic change was seen by x-ray, and al though considered much less likely metastatic disease would be impossible to exclude. 5. Trace pelvic ascites. Dictated: 10/20/2021 1:38 PM Transcribed: 10/20/2021 2:11 PM Ethel [id number] RENAE_Harinder Electronically signed by: Jose Antonio Angelo M.D. 10/20/2021 2:35 PM
--- NOTE | 2021-10-20 18:07 | Orthopedic Progress Note ---
Date of Service October 20, 2021 Assessment & Plan (1) Avascular necrosis of bone of shoulder: Plan: Patient has multifocal avascular necrosis multiple bones both shoulders both knees both hips. He has what appears to be a stable osteochondral fracture lateral femoral condyle right knee. He has a symmetrical inflammation to the hip musculature and greater trochanter no clear history of trauma. Initial treatment would be nonsteroidal anti-inflammatory medication I would recommend meloxicam if cleared by medicine. He states that on a regular basis for several months and do some light physical therapy. Pain management otherwise as necessary. Possible surgical intervention could include drilling of OCD lesion internal fixation of OCD lesion, possible core decompression and stem cell injections. These treatments and sickle cell disease do not have as good of a track record as people without sickle cell disease and may not prevent progression to further degeneration and requirement of an arthroplasty which also has increased risk for failure and people sickle cell disease. For these reasons I recommend he follow-up at a [facility] for the most updated care if he were to choose of surgical intervention. Admission and Anticipated Discharge Date Admission Date: October 18, 2021 Subjective No complaints at rest Review of Systems Review of Systems: Noncontributory Physical Exam Physical Exam: No major change Results & Data ([facility]) Vital Signs (Past 12 Hours) Vital Signs Temp Pulse Pulse Resp BP BP Pulse Ox 10/20/21 15:16 36.6 C 65 15 102/62 98 10/20/21 14:34 66 10/20/21 08:03 36.6 C 71 18 104/59 L 92 10/20/21 07:00 61 Diagnostic Findings MRI of the knee demonstrates chronic changes consistent with AVN sickle cell disease but there is a osteochondral lesion lateral femoral condyle which deftly has some separation from the remainder of the bone but there is no increased bone edema around the lesion which would indicate that it is a stable lesion. Does have some synovitis of the knee. MRI of the right hip demonstrates that he has AVN of both his hips without obvious collapse and some synovitis of both hips but there is some increased inflammation of the soft tissue of the posterior hip musculature gluteus medius or minimus and some of the bone which is asymmetrical to the opposite hip and likely cause of his right hip pain.
[2021-10-20] MEDS ORDERED: KETOROLAC TROMETHAMINE 15 MG/ML VIAL IV ONE (19:35)
[2021-10-20] MEDS: POLYETHYLENE (MIRALAX) 17 GM PACK PO PRN (20:00)
[2021-10-20] MEDS: HYDROXYUREA 500 MG CAP PO SCH (20:01)
[2021-10-20] MEDS: SERTRALINE HCL 50 MG TABLET PO SCH (20:02)
[2021-10-20] MEDS: ARIPiprazole 10 MG TAB PO SCH (20:04)
[2021-10-20] MEDS: ENOXAPARIN INJ 40 MG/0.4 ML SYR SQ SCH (20:04)
[2021-10-21] MEDS: SODIUM CHLORIDE 0.9% 1000ML 1,000 ML IV SCH (05:11)
[2021-10-21 07:00] LABS: Mean Corpuscular Hgb Conc 34.7 g/dL (32-36); Mean Platelet Volume 9.9 fL (7.4-10.4); Platelet Count 301 K/uL (130-400)
[2021-10-21 07:16] LABS: Anion Gap 5 (3-11); BUN Creatinine Ratio 16.3 (10-20); Blood Urea Nitrogen 8 mg/dl (6-23); Calcium 8.3 mg/dl (8.5-10.1); Carbon Dioxide 26 mmol/L (21-32); Chloride 106 mmol/L (98-107); Creatinine Clr Calc Pharmacy 191.1 ml/min; Est GFR (African American) > 150.0 ml/min; Est GFR (Non-African American) 138.6 ml/min; Glucose 95 mg/dl (70-99(Fasting)); Phosphorus 3.5 mg/dl (2.5-4.9); Potassium 4.3 mmol/L (3.5-5.1); Sodium 137 mmol/L (136-145)
[2021-10-21 07:42] LABS: Hematocrit (blood only) 24.5 % (42-52); Hemoglobin 8.5 g/dL (14.0-18.0); Mean Corpuscular Hemoglobin 37.3 pg (25-34); Mean Corpuscular Volume 107.5 fL (80-100); Nucleated RBC # (auto) 1.58 K/uL (0-0); Nucleated RBC % (auto) 26.6 %; RDW Coefficient of Variation 18.5 % (11.5-14.5); RDW Standard Deviation 69.6 fL (36.4-46.3); Red Blood Count 2.28 M/uL (4.7-6.1); White Blood Count 5.94 K/uL (4.8-10.8)
[2021-10-21] MEDS: FOLIC ACID 1 MG TAB PO SCH (09:51)
[2021-10-21] MEDS: MELOXICAM 7.5 MG TAB PO SCH (09:51)
[2021-10-21] MEDS: ACETAMINOPHEN 325 MG TAB PO SCH ×4 (09:54→20:27)
--- NOTE | 2021-10-21 15:04 | Hospitalist Progress Note ---
Date of Service October 21, 2021 Assessment & Plan (1) Sickle cell anemia with pain: (2) Avascular necrosis of bone of shoulder: Plan: This is a 36 yr old incarcerated male from [facility] group home who presents with b/l knee and chest pain off and on x 3 days. Sickle cell crisis Sickle cell anemia Bilateral knee pain, R hip pain Increased reti count on admission (20.7 %) and chronic anemia on lab Hgb above 9 CXR: Lungs are clear but Findings suggest avascular necrosis of the humeral heads. Admitted to telemetry received IVF on admission, cont. w/ IVF Encourage patient to hydrate frequently Control pain with scheduled Tylenol, as needed oxycodone, prn toradol Monitor CBC, retic count, LDH Continue hydroxyurea, folic acid, deferasirox obtained Xray of b/l knees Recent outpatient labs from group home reveal hemoglobin 9.7, iron 254, TIBC 250, percent saturation 73%, transferrin 242 - from 10/05/2021 Xray knees FINDINGS: RIGHT: Heterogeneous sclerotic appearance of the bones with subcortical cyst versus OCD of the lateral femoral condyle measuring 9 mm. No acute fracture, dislocation or opaque foreign body. Small joint effusion. LEFT: Heterogeneous sclerotic appearance the bones. No acute fracture or dislocation. Trace joint effusion. Enthesophyte of the tibial tuberosity. IMPRESSION: 1. No acute fracture. 2. Subcortical cyst versus OCD of the right lateral femoral condyle. 3. Diffusely heterogeneous sclerotic appearance of the bones likely is likely secondary to chronic anemia associated with the patient's known sickle cell disease. Xray R hip/ pelvis IMPRESSION: 1. No acute fracture or dislocation. 2. Avascular necrosis of the femoral heads without articular collapse. 3. Diffusely heterogeneous sclerotic appearance of the bones likely is likely secondary to chronic anemia associated with the patient's known sickle cell disease. Sclerotic metastasis could cause a similar appearance however is considered less likely. Avascular necrosis of bilateral humeral heads, femoral heads Noted on chest x-ray Patient currently denying shoulder pain Reports R hip pain Consulted orthopedics for further recommendations, likely secondary to sickle cell disease Obtained MRI of right hip and right knee R hip IMPRESSION: 1. There is avascular necrosis of the proximal femora, left greater than right. 2. No acute fracture is seen. 3. There is mild marrow edema within the greater trochanter of the right proximal femur with surrounding soft tissue edema adjacent to the attachment of the gluteus medius tendon. This is of indeterminate significance, and may be related to contusion. An enthesitis could have this appearance, or this could potentially be related to altered biomechanics. Clinical correlation will be essential. 4. Diffuse marrow abnormality seen throughout the bony pelvis and proximal femora is likely related to the patient's history of underlying sickle cell disease. Sclerotic change was seen by x-ray, and although considered much less likely metastatic disease would be impossible to exclude. 5. Trace pelvic ascites. R knee IMPRESSION: 1. Degraded exam. 2. Bone infarcts of the distal femur and proximal tibia with avascular necrosis of the left femoral head. 3. Small joint effusion. No intra-articular loose body. 4. No acute meniscal or ligamentous injury of the knee. 5. Diffusely abnormal appearance of the bone marrow redemonstrated, likely secondary to chronic anemia associated with the patient's known sickle cell disease. Per orthopedics Patient has multifocal avascular necrosis multiple bones both shoulders both knees both hips. He has what appears to be a stable osteochondral fracture lateral femoral condyle right knee. He has a symmetrical inflammation to the hip musculature and greater trochanter no clear history of trauma. Initial treatment would be nonsteroidal anti-inflammatory medication I would recommend meloxicam if cleared by medicine. He states that on a regular basis for several months and do some light physical therapy. Pain management otherwise as necessary. Possible surgical intervention could include drilling of OCD lesion internal fixation of OCD lesion, possible core decompression and stem cell injections. These treatments and sickle cell disease do not have as good of a track record as people without sickle cell disease and may not prevent progression to further degeneration and requirement of an arthroplasty which also has increased risk for failure and people sickle cell disease. For these reasons I recommend he follow-up at a [facility] for the most updated care if he were to choose of surgical intervention. Patient may benefit from a hinged knee brace for support to the right knee and this could be ordered orthotics department if we have that type of brace at the hospital but he may need to have this ordered from medical supply store as an outpatient. October 21, patient's pain better controlled with meloxicam. per RN, did not require any opioid medications today Personality disorder Anxiety Continue Abilify and Zoloft Nicotine dependence Smokes e-cigarette in group home declines patch DVT ppx: SQ Lovenox Dispo: tele PCP: [facility] FULL CODE Admission and Anticipated Discharge Date Admission Date: October 18, 2021 Subjective Patient seen in follow-up of vaso-occlusive crisis in the setting of sickle cell disease Presented with bilateral knee pain Then also complained of right hip pain Denies fevers, chills, breathing comfortably, denies any cough, denies any more chest discomfort Denies abdominal pain, nausea vomiting Seen by orthopedics for avascular necrosis, also started on meloxicam, which controls patient's pain much better now Review of Systems Review of Systems: All systems reviewed & are unremarkable except as noted in Subjective Physical Exam Physical Exam: General: NAD, well developed Cardiac: Normal S1/S2, no murmur Respiratory: CTA, no crackles or wheezing Abd: ND, NT, soft MSK: TTP of the b/l shoulder area (deltoid) and b/l knee, R hip, no swelling of the joints or LE edema Psych: AAOx3, normal affect Results & Data Results & Data ([facility]) Vital Signs (Past 12 Hours) Vital Signs Temp Pulse Pulse Resp BP BP Pulse Ox 10/21/21 12:55 36.6 C 64 14 99/61 L 98 10/21/21 10:14 56 L 10/21/21 08:04 49 L 10/21/21 07:50 36.6 C 75 16 105/65 96 10/21/21 03:22 36.8 C 66 18 90/49 L 98 Laboratory Results 10/21/21 10/21/21 Range/Units 06:36 06:36 WBC 5.94 (4.8-10.8) K/uL RBC 2.28 L (4.7-6.1) M/uL Hgb 8.5 L (14.0-18.0) g/dL Hct 24.5 L (42-52) % MCV 107.5 H (80-100) fL MCH 37.3 H (25-34) pg MCHC 34.7 (32-36) g/dL RDW Std Deviation 69.6 H (36.4-46.3) fL RDW Coeff of Noah 18.5 H (11.5-14.5) % Plt Count 301 (130-400) K/uL MPV 9.9 (7.4-10.4) fL Absolute Nucleated RBC 1.58 H (0-0) K/uL Nucleated RBC % (auto) 26.6 % Sodium 137 (136-145) mmol/L Potassium 4.3 (3.5-5.1) mmol/L Chloride 106 (98-107) mmol/L Carbon Dioxide 26 (21-32) mmol/L Anion Gap 5 (3-11) BUN 8 (6-23) mg/dl Creatinine 0.49 L (0.6-1.4) mg/dl Est Cr Clr Drug Dosing 191.1 ml/min Est GFR ( Amer) > 150.0 ml/min Est GFR (Non-Af Amer) 138.6 ml/min BUN/Creatinine Ratio 16.3 (10-20) Glucose 95 (70-99(Fasting)) mg/dl Calcium 8.3 L (8.5-10.1) mg/dl Phosphorus 3.5 (2.5-4.9) mg/dl Magnesium 2.0 (1.7-2.4) mg/dl Medications Administered Current Inpatient Medications Acetaminophen (Acetaminophen 325 Mg Tab) 650 mg PO Q4H PRN PRN Reason: Pain or Fever Stop: 11/17/21 17:00 Acetaminophen (Acetaminophen 325 Mg Tab) 650 mg PO QID KEELEY Stop: 11/17/21 17:29 Last Admin: 10/21/21 12:56 Dose: 650 mg Documented by: Al Hydrox/Mg Hydrox/Simethicone (Aluminum/Magnesium Susp 30 Ml Udc) 15 ml PO Q4H PRN PRN Reason: Dyspepsia Stop: 11/17/21 17:00 Aripiprazole (Aripiprazole 10 Mg Tab) 20 mg PO HS KEELEY Stop: 11/17/21 20:59 Last Admin: 10/20/21 20:04 Dose: 20 mg Documented by: Enoxaparin Sodium (Enoxaparin Inj 40 Mg/0.4 Ml Syr) 40 mg SQ HS KEELEY Stop: 11/17/21 20:59 Last Admin: 10/20/21 20:04 Dose: Not Given Documented by: Folic Acid (Folic Acid 1 Mg Tab) 1 mg PO DAILY KEELEY Stop: 11/18/21 08:59 Last Admin: 10/21/21 09:51 Dose: 1 mg Documented by: Hydroxyurea (Hydroxyurea 500 Mg Cap) 1,000 mg PO HS KEELEY Stop: 11/17/21 20:59 Last Admin: 10/20/21 20:01 Dose: 1,000 mg Documented by: Magnesium Hydroxide (Magnesium Hydroxide Susp 30 Ml Udc) 30 ml PO Q12H PRN PRN Reason: Constipation Stop: 11/17/21 17:00 Meloxicam (Meloxicam 7.5 Mg Tab) 7.5 mg PO QAM [facility] Stop: 11/20/21 08:59 Last Admin: 10/21/21 09:51 Dose: 7.5 mg Documented by: Miscellaneous (Deferasirox: Order Awaiting Action) 1 ea N/A QS [facility] Stop: 11/18/21 17:59 Last Admin: 10/21/21 09:50 Dose: Not Given Documented by: Ondansetron HCl (Ondansetron Inj 2 Mg/Ml 2 Ml Vial) 4 mg IV Q6H PRN PRN Reason: Nausea Stop: 11/17/21 17:00 Oxycodone HCl (Oxycodone Hcl Ir 5 Mg Tab (Immediate Release)) 10 mg PO Q4H PRN PRN Reason: Pain Stop: 11/01/21 17:00 Last Admin: 10/20/21 17:58 Dose: 10 mg Documented by: Polyethylene Glycol (Polyethylene (Miralax) 17 Gm Pack) 17 gm PO DAILY PRN PRN Reason: Constipation Stop: 11/17/21 17:00 Last Admin: 10/20/21 20:00 Dose: 17 gm Documented by: Sertraline HCl (Sertraline Hcl 50 Mg Tablet) 50 mg PO HS [facility] Stop: 11/17/21 20:59 Last Admin: 10/20/21 20:02 Dose: 50 mg Documented by:
[2021-10-21] MEDS: POLYETHYLENE (MIRALAX) 17 GM PACK PO PRN (17:37)
[2021-10-21] MEDS: ENOXAPARIN INJ 40 MG/0.4 ML SYR SQ SCH (20:03)
[2021-10-21] MEDS: HYDROXYUREA 500 MG CAP PO SCH (20:27)
[2021-10-21] MEDS: ARIPiprazole 10 MG TAB PO SCH (20:27)
[2021-10-21] MEDS: SERTRALINE HCL 50 MG TABLET PO SCH (20:28)
[2021-10-22 07:32] LABS: Mean Corpuscular Hgb Conc 34.7 g/dL (32-36); Mean Platelet Volume 10.3 fL (7.4-10.4); Platelet Count 333 K/uL (130-400)
[2021-10-22 07:51] LABS: Anion Gap 6 (3-11); BUN Creatinine Ratio 16.3 (10-20); Blood Urea Nitrogen 8 mg/dl (6-23); Calcium 8.9 mg/dl (8.5-10.1); Carbon Dioxide 28 mmol/L (21-32); Chloride 104 mmol/L (98-107); Creatinine Clr Calc Pharmacy 191.1 ml/min; Est GFR (African American) > 150.0 ml/min; Est GFR (Non-African American) 138.6 ml/min; Glucose 93 mg/dl (70-99(Fasting)); Potassium 3.8 mmol/L (3.5-5.1); Sodium 138 mmol/L (136-145)
[2021-10-22 07:57] LABS: Hematocrit (blood only) 25.1 % (42-52); Hemoglobin 8.7 g/dL (14.0-18.0); Mean Corpuscular Hemoglobin 37.3 pg (25-34); Mean Corpuscular Volume 107.7 fL (80-100); Nucleated RBC # (auto) 1.01 K/uL (0-0); Nucleated RBC % (auto) 14.5 %; RDW Coefficient of Variation 18.5 % (11.5-14.5); RDW Standard Deviation 69.9 fL (36.4-46.3); Red Blood Count 2.33 M/uL (4.7-6.1); White Blood Count 6.94 K/uL (4.8-10.8)
--- NOTE | 2021-10-22 08:55 | Hospitalist Progress Note ---
Date of Service October 22, 2021 Assessment & Plan (1) Sickle cell anemia with pain: (2) Avascular necrosis of bone of shoulder: Plan: This is a 36 yr old incarcerated male from [facility] who presents with b/l knee and chest pain off and on x 3 days. Sickle cell crisis Sickle cell anemia Bilateral knee pain, R hip pain Increased reti count on admission (20.7 %) and chronic anemia on lab Hgb above 9 CXR: Lungs are clear but Findings suggest avascular necrosis of the humeral heads. Admitted to telemetry received IVF on admission, cont. w/ IVF - >stopped Encourage patient to hydrate frequently Control pain with scheduled Tylenol, as needed oxycodone, prn toradol Now started on meloxicam (per ortho recommendations) , and pain is now much better controlled Monitor CBC, retic count, LDH Continue hydroxyurea, folic acid, deferasirox Recent outpatient labs from [facility] reveal hemoglobin 9.7, iron 254, TIBC 250, percent saturation 73%, transferrin 242 - from 10/05/2021 Xray knees FINDINGS: RIGHT: Heterogeneous sclerotic appearance of the bones with subcortical cyst versus OCD of the lateral femoral condyle measuring 9 mm. No acute fracture, dislocation or opaque foreign body. Small joint effusion. LEFT: Heterogeneous sclerotic appearance the bones. No acute fracture or dislocation. Trace joint effusion. Enthesophyte of the tibial tuberosity. IMPRESSION: 1. No acute fracture. 2. Subcortical cyst versus OCD of the right lateral femoral condyle. 3. Diffusely heterogeneous sclerotic appearance of the bones likely is likely secondary to chronic anemia associated with the patient's known sickle cell disease. Xray R hip/ pelvis IMPRESSION: 1. No acute fracture or dislocation. 2. Avascular necrosis of the femoral heads without articular collapse. 3. Diffusely heterogeneous sclerotic appearance of the bones likely is likely secondary to chronic anemia associated with the patient's known sickle cell disease. Sclerotic metastasis could cause a similar appearance however is considered less likely. Avascular necrosis of bilateral humeral heads, femoral heads Noted on chest x-ray Patient currently denying shoulder pain Reports R hip pain Consulted orthopedics for further recommendations, likely secondary to sickle cell disease Obtained MRI of right hip and right knee R hip IMPRESSION: 1. There is avascular necrosis of the proximal femora, left greater than right. 2. No acute fracture is seen. 3. There is mild marrow edema within the greater trochanter of the right proximal femur with surrounding soft tissue edema adjacent to the attachment of the gluteus medius tendon. This is of indeterminate significance, and may be related to contusion. An enthesitis could have this appearance, or this could potentially be related to altered biomechanics. Clinical correlation will be essential. 4. Diffuse marrow abnormality seen throughout the bony pelvis and proximal femora is likely related to the patient's history of underlying sickle cell disease. Sclerotic change was seen by x-ray, and although considered much less likely metastatic disease would be impossible to exclude. 5. Trace pelvic ascites. R knee IMPRESSION: 1. Degraded exam. 2. Bone infarcts of the distal femur and proximal tibia with avascular necrosis of the left femoral head. 3. Small joint effusion. No intra-articular loose body. 4. No acute meniscal or ligamentous injury of the knee. 5. Diffusely abnormal appearance of the bone marrow redemonstrated, likely secondary to chronic anemia associated with the patient's known sickle cell disease. Per orthopedics Patient has multifocal avascular necrosis multiple bones both shoulders both knees both hips. He has what appears to be a stable osteochondral fracture lateral femoral condyle right knee. He has a symmetrical inflammation to the hip musculature and greater trochanter no clear history of trauma. Initial treatment would be nonsteroidal anti-inflammatory medication I would recommend meloxicam if cleared by medicine. He states that on a regular basis for several months and do some light physical therapy. Pain management otherwise as necessary. Possible surgical intervention could include drilling of OCD lesion internal fixation of OCD lesion, possible core decompression and stem cell injections. These treatments and sickle cell disease do not have as good of a track record as people without sickle cell disease and may not prevent progression to further degeneration and requirement of an arthroplasty which also has increased risk for failure and people sickle cell disease. For these reasons I recommend he follow-up at a [facility] tertiary care center for the most updated care if he were to choose of surgical intervention. Patient may benefit from a hinged knee brace for support to the right knee and this could be ordered orthotics department if we have that type of brace at the hospital but he may need to have this ordered from medical supply store as an outpatient. October 21, patient's pain better controlled with meloxicam. per RN, did not require any opioid medications today 10/22 -joint pain and much improved, no chest discomfort. Personality disorder Anxiety Continue Abilify and Zoloft Nicotine dependence Smokes e-cigarette in [facility] declines patch DVT ppx: SQ Lovenox Dispo: tele PCP: [facility] FULL CODE Admission and Anticipated Discharge Date Admission Date: October 18, 2021 Subjective Patient seen in follow-up of vaso-occlusive crisis in the setting of sickle cell disease Presented with bilateral knee pain Then also complained of right hip pain Denies fevers, chills, breathing comfortably, denies any cough, denies any more chest discomfort Denies abdominal pain, nausea vomiting Seen by orthopedics for avascular necrosis, also started on meloxicam, which controls patient's pain much better now Review of Systems Review of Systems: All systems reviewed & are unremarkable except as noted in Subjective Physical Exam Physical Exam: General: NAD, well developed Cardiac: Normal S1/S2, no murmur Respiratory: CTA, no crackles or wheezing Abd: ND, NT, soft MSK: TTP of the b/l shoulder area (deltoid) and b/l knee, R hip, no swelling of the joints or LE edema Psych: AAOx3, normal affect Results & Data Results & Data ([facility]) Vital Signs (Past 12 Hours) Vital Signs Temp Pulse Pulse Resp BP Pulse Ox 10/22/21 03:05 36.6 C 57 L 18 98/52 L 98 10/21/21 22:58 36.5 C 69 18 95/55 L 99 10/21/21 22:46 63 Laboratory Results 10/22/21 10/22/21 Range/Units 06:08 06:08 WBC 6.94 (4.8-10.8) K/uL RBC 2.33 L (4.7-6.1) M/uL Hgb 8.7 L (14.0-18.0) g/dL Hct 25.1 L (42-52) % MCV 107.7 H (80-100) fL MCH 37.3 H (25-34) pg MCHC 34.7 (32-36) g/dL RDW Std Deviation 69.9 H (36.4-46.3) fL RDW Coeff of Noah 18.5 H (11.5-14.5) % Plt Count 333 (130-400) K/uL MPV 10.3 (7.4-10.4) fL Absolute Nucleated RBC 1.01 H (0-0) K/uL Nucleated RBC % (auto) 14.5 % Sodium 138 (136-145) mmol/L Potassium 3.8 (3.5-5.1) mmol/L Chloride 104 (98-107) mmol/L Carbon Dioxide 28 (21-32) mmol/L Anion Gap 6 (3-11) BUN 8 (6-23) mg/dl Creatinine 0.49 L (0.6-1.4) mg/dl Est Cr Clr Drug Dosing 191.1 ml/min Est GFR ( Amer) > 150.0 ml/min Est GFR (Non-Af Amer) 138.6 ml/min BUN/Creatinine Ratio 16.3 (10-20) Glucose 93 (70-99(Fasting)) mg/dl Calcium 8.9 (8.5-10.1) mg/dl Medications Administered Current Inpatient Medications Acetaminophen (Acetaminophen 325 Mg Tab) 650 mg PO Q4H PRN PRN Reason: Pain or Fever Stop: 11/17/21 17:00 Acetaminophen (Acetaminophen 325 Mg Tab) 650 mg PO QID [facility] Stop: 11/17/21 17:29 Last Admin: 10/21/21 20:27 Dose: 650 mg Documented by: Al Hydrox/Mg Hydrox/Simethicone (Aluminum/Magnesium Susp 30 Ml Udc) 15 ml PO Q4H PRN PRN Reason: Dyspepsia Stop: 11/17/21 17:00 Aripiprazole (Aripiprazole 10 Mg Tab) 20 mg PO [facility] Stop: 11/17/21 20:59 Last Admin: 10/21/21 20:27 Dose: 20 mg Documented by: Enoxaparin Sodium (Enoxaparin Inj 40 Mg/0.4 Ml Syr) 40 mg SQ [facility] Stop: 11/17/21 20:59 Last Admin: 10/21/21 20:03 Dose: Not Given Documented by: Folic Acid (Folic Acid 1 Mg Tab) 1 mg PO DAILY [facility] Stop: 11/18/21 08:59 Last Admin: 10/21/21 09:51 Dose: 1 mg Documented by: Hydroxyurea (Hydroxyurea 500 Mg Cap) 1,000 mg PO [facility] Stop: 11/17/21 20:59 Last Admin: 10/21/21 20:27 Dose: 1,000 mg Documented by: Magnesium Hydroxide (Magnesium Hydroxide Susp 30 Ml Udc) 30 ml PO Q12H PRN PRN Reason: Constipation Stop: 11/17/21 17:00 Meloxicam (Meloxicam 7.5 Mg Tab) 7.5 mg PO QAM [facility] Stop: 11/20/21 08:59 Last Admin: 10/21/21 09:51 Dose: 7.5 mg Documented by: Miscellaneous (Deferasirox: Order Awaiting Action) 1 ea N/A QS [facility] Stop: 11/18/21 17:59 Last Admin: 10/22/21 01:06 Dose: Not Given Documented by: Ondansetron HCl (Ondansetron Inj 2 Mg/Ml 2 Ml Vial) 4 mg IV Q6H PRN PRN Reason: Nausea Stop: 11/17/21 17:00 Oxycodone HCl (Oxycodone Hcl Ir 5 Mg Tab (Immediate Release)) 10 mg PO Q4H PRN PRN Reason: Pain Stop: 11/01/21 17:00 Last Admin: 10/20/21 17:58 Dose: 10 mg Documented by: Polyethylene Glycol (Polyethylene (Miralax) 17 Gm Pack) 17 gm PO DAILY PRN PRN Reason: Constipation Stop: 11/17/21 17:00 Last Admin: 10/21/21 17:37 Dose: 17 gm Documented by: Sertraline HCl (Sertraline Hcl 50 Mg Tablet) 50 mg PO HS [facility] Stop: 11/17/21 20:59 Last Admin: 10/21/21 20:28 Dose: 50 mg Documented by:
[2021-10-22] MEDS: FOLIC ACID 1 MG TAB PO SCH (09:06)
[2021-10-22] MEDS: MELOXICAM 7.5 MG TAB PO SCH (09:06)
[2021-10-22] MEDS: ACETAMINOPHEN 325 MG TAB PO SCH ×4 (09:06→20:29)
[2021-10-22] MEDS: HYDROXYUREA 500 MG CAP PO SCH (20:28)
[2021-10-22] MEDS: ARIPiprazole 10 MG TAB PO SCH (20:29)
[2021-10-22] MEDS: SERTRALINE HCL 50 MG TABLET PO SCH (20:29)
[2021-10-22] MEDS: ENOXAPARIN INJ 40 MG/0.4 ML SYR SQ SCH (20:30)
[2021-10-23 07:13] LABS: Mean Corpuscular Hgb Conc 34.4 g/dL (32-36); Mean Platelet Volume 10.1 fL (7.4-10.4); Platelet Count 323 K/uL (130-400); Reticulocyte % 14.9 % (0.5-2.0); Reticulocytes # 0.36 10^6/uL (0.02-0.10)
[2021-10-23 07:32] LABS: Anion Gap 7 (3-11); Bilirubin,Total 2.5 mg/dl (0.2-1.0); Blood Urea Nitrogen 12 mg/dl (6-23); Calcium 9.2 mg/dl (8.5-10.1); Carbon Dioxide 27 mmol/L (21-32); Chloride 104 mmol/L (98-107); Creatinine Clr Calc Pharmacy 195.1 ml/min; Est GFR (African American) > 150.0 ml/min; Est GFR (Non-African American) 139.8 ml/min; Glucose 91 mg/dl (70-99(Fasting)); Magnesium 2.2 mg/dl (1.7-2.4); Phosphorus 3.6 mg/dl (2.5-4.9); Potassium 4.2 mmol/L (3.5-5.1); Sodium 138 mmol/L (136-145)
[2021-10-23 07:36] LABS: Hematocrit (blood only) 26.2 % (42-52); Mean Corpuscular Hemoglobin 37.5 pg (25-34); Mean Corpuscular Volume 109.2 fL (80-100); Nucleated RBC # (auto) 0.86 K/uL (0-0); Nucleated RBC % (auto) 12.9 %; RDW Coefficient of Variation 18.7 % (11.5-14.5); RDW Standard Deviation 71.4 fL (36.4-46.3); White Blood Count 6.66 K/uL (4.8-10.8)
[2021-10-23] MEDS: FOLIC ACID 1 MG TAB PO SCH (08:37)
[2021-10-23] MEDS: MELOXICAM 7.5 MG TAB PO SCH (08:37)
[2021-10-23] MEDS: ACETAMINOPHEN 325 MG TAB PO SCH ×4 (08:37→20:47)
--- NOTE | 2021-10-23 08:46 | Hospitalist Progress Note ---
Date of Service October 23, 2021 Assessment & Plan (1) Sickle cell anemia with pain: (2) Avascular necrosis of bone of shoulder: Plan: This is a 36 yr old incarcerated male from [facility] who presents with b/l knee and chest pain off and on x 3 days. Sickle cell crisis Sickle cell anemia Bilateral knee pain, R hip pain Increased reti count on admission (20.7 %) and chronic anemia on lab Hgb above 9 CXR: Lungs are clear but Findings suggest avascular necrosis of the humeral heads. Admitted to telemetry received IVF on admission, cont. w/ IVF - >stopped Encourage patient to hydrate frequently Control pain with scheduled Tylenol, as needed oxycodone, prn toradol Now started on meloxicam (per ortho recommendations) , and pain is now much better controlled Monitor CBC, retic count, LDH Continue hydroxyurea, folic acid, deferasirox Recent outpatient labs from [facility] care reveal hemoglobin 9.7, iron 254, TIBC 250, percent saturation 73%, transferrin 242 - from 10/05/2021 Xray knees FINDINGS: RIGHT: Heterogeneous sclerotic appearance of the bones with subcortical cyst versus OCD of the lateral femoral condyle measuring 9 mm. No acute fracture, dislocation or opaque foreign body. Small joint effusion. LEFT: Heterogeneous sclerotic appearance the bones. No acute fracture or dislocation. Trace joint effusion. Enthesophyte of the tibial tuberosity. IMPRESSION: 1. No acute fracture. 2. Subcortical cyst versus OCD of the right lateral femoral condyle. 3. Diffusely heterogeneous sclerotic appearance of the bones likely is likely secondary to chronic anemia associated with the patient's known sickle cell disease. Xray R hip/ pelvis IMPRESSION: 1. No acute fracture or dislocation. 2. Avascular necrosis of the femoral heads without articular collapse. 3. Diffusely heterogeneous sclerotic appearance of the bones likely is likely secondary to chronic anemia associated with the patient's known sickle cell disease. Sclerotic metastasis could cause a similar appearance however is considered less likely. Avascular necrosis of bilateral humeral heads, femoral heads Noted on chest x-ray Patient currently denying shoulder pain Reports R hip pain Consulted orthopedics for further recommendations, likely secondary to sickle cell disease Obtained MRI of right hip and right knee R hip IMPRESSION: 1. There is avascular necrosis of the proximal femora, left greater than right. 2. No acute fracture is seen. 3. There is mild marrow edema within the greater trochanter of the right proximal femur with surrounding soft tissue edema adjacent to the attachment of the gluteus medius tendon. This is of indeterminate significance, and may be related to contusion. An enthesitis could have this appearance, or this could potentially be related to altered biomechanics. Clinical correlation will be essential. 4. Diffuse marrow abnormality seen throughout the bony pelvis and proximal femora is likely related to the patient's history of underlying sickle cell disease. Sclerotic change was seen by x-ray, and although considered much less likely metastatic disease would be impossible to exclude. 5. Trace pelvic ascites. R knee IMPRESSION: 1. Degraded exam. 2. Bone infarcts of the distal femur and proximal tibia with avascular necrosis of the left femoral head. 3. Small joint effusion. No intra-articular loose body. 4. No acute meniscal or ligamentous injury of the knee. 5. Diffusely abnormal appearance of the bone marrow redemonstrated, likely secondary to chronic anemia associated with the patient's known sickle cell disease. Per orthopedics Patient has multifocal avascular necrosis multiple bones both shoulders both knees both hips. He has what appears to be a stable osteochondral fracture lateral femoral condyle right knee. He has a symmetrical inflammation to the hip musculature and greater trochanter no clear history of trauma. Initial treatment would be nonsteroidal anti-inflammatory medication I would recommend meloxicam if cleared by medicine. He states that on a regular basis for several months and do some light physical therapy. Pain management otherwise as necessary. Possible surgical intervention could include drilling of OCD lesion internal fixation of OCD lesion, possible core decompression and stem cell injections. These treatments and sickle cell disease do not have as good of a track record as people without sickle cell disease and may not prevent progression to further degeneration and requirement of an arthroplasty which also has increased risk for failure and people sickle cell disease. For these reasons I recommend he follow-up at a [facility] tertiary care center for the most updated care if he were to choose of surgical intervention. Patient may benefit from a hinged knee brace for support to the right knee and this could be ordered orthotics department if we have that type of brace at the hospital but he may need to have this ordered from medical supply store as an outpatient. October 21, patient's pain better controlled with meloxicam. per RN, did not require any opioid medications today 10/22 -joint pain and much improved, no chest discomfort. 10/23 - clinically patient much improved. Denies any pain, started meloxicam. Retic count down to 15% LDH 410 Tbili 2.5 Personality disorder Anxiety Continue Abilify and Zoloft Nicotine dependence Smokes e-cigarette in senior care declines patch DVT ppx: SQ Lovenox Dispo: tele PCP: [facility] FULL CODE Admission and Anticipated Discharge Date Admission Date: October 18, 2021 Subjective Patient seen in follow-up of vaso-occlusive crisis in the setting of sickle cell disease Presented with bilateral knee pain Then also complained of right hip pain Denies fevers, chills, breathing comfortably, denies any cough, denies any more chest discomfort Denies abdominal pain, nausea vomiting Seen by orthopedics for avascular necrosis, also started on meloxicam, which controls patient's pain much better now Overall patient feels much improved. Denies any significant pain. Review of Systems Review of Systems: All systems reviewed & are unremarkable except as noted in Subjective Physical Exam Physical Exam: General: NAD, well developed Cardiac: Normal S1/S2, no murmur Respiratory: CTA, no crackles or wheezing Abd: ND, NT, soft MSK: no pain to palpation - much improved - previously TTP of the b/l shoulder area (deltoid) and b/l knee, R hip, no swelling of the joints or LE edema Psych: AAOx3, normal affect Results & Data Results & Data ([facility]) Vital Signs (Past 12 Hours) Vital Signs Temp Pulse Resp BP BP Pulse Ox 10/23/21 08:34 37 C 77 16 99/62 L 94 10/23/21 03:19 36.6 C 66 18 100/67 96 10/22/21 22:59 36.6 C 70 18 96/57 L 96 Laboratory Results 10/23/21 10/23/21 10/23/21 Range/Units 06:41 06:41 06:41 WBC 6.66 (4.8-10.8) K/uL RBC 2.40 L (4.7-6.1) M/uL Hgb 9.0 L (14.0-18.0) g/dL Hct 26.2 L (42-52) % MCV 109.2 H (80-100) fL MCH 37.5 H (25-34) pg MCHC 34.4 (32-36) g/dL RDW Std Deviation 71.4 H (36.4-46.3) fL RDW Coeff of Noah 18.7 H (11.5-14.5) % Plt Count 323 (130-400) K/uL MPV 10.1 (7.4-10.4) fL Reticulocyte % (Auto) 14.9 H (0.5-2.0) % Reticulocyte # 0.36 H (0.02-0.10) 10^6/uL Absolute Nucleated RBC 0.86 H (0-0) K/uL Nucleated RBC % (auto) 12.9 % Sodium 138 (136-145) mmol/L Potassium 4.2 (3.5-5.1) mmol/L Chloride 104 (98-107) mmol/L Carbon Dioxide 27 (21-32) mmol/L Anion Gap 7 (3-11) BUN 12 (6-23) mg/dl Creatinine 0.48 L (0.6-1.4) mg/dl Est Cr Clr Drug Dosing 195.1 ml/min Est GFR ( Amer) > 150.0 ml/min Est GFR (Non-Af Amer) 139.8 ml/min BUN/Creatinine Ratio 25.0 H (10-20) Glucose 91 (70-99(Fasting)) mg/dl Calcium 9.2 (8.5-10.1) mg/dl Phosphorus 3.6 (2.5-4.9) mg/dl Magnesium 2.2 (1.7-2.4) mg/dl Total Bilirubin 2.5 H (0.2-1.0) mg/dl Lactate Dehydrogenase 410 H (86-244) U/L Medications Administered Current Inpatient Medications Acetaminophen (Acetaminophen 325 Mg Tab) 650 mg PO Q4H PRN PRN Reason: Pain or Fever Stop: 11/17/21 17:00 Acetaminophen (Acetaminophen 325 Mg Tab) 650 mg PO QID [facility] Stop: 11/17/21 17:29 Last Admin: 10/23/21 08:37 Dose: 650 mg Documented by: Al Hydrox/Mg Hydrox/Simethicone (Aluminum/Magnesium Susp 30 Ml Udc) 15 ml PO Q4H PRN PRN Reason: Dyspepsia Stop: 11/17/21 17:00 Aripiprazole (Aripiprazole 10 Mg Tab) 20 mg PO HS [facility] Stop: 11/17/21 20:59 Last Admin: 10/22/21 20:29 Dose: 20 mg Documented by: Enoxaparin Sodium (Enoxaparin Inj 40 Mg/0.4 Ml Syr) 40 mg SQ [facility] Stop: 11/17/21 20:59 Last Admin: 10/22/21 20:30 Dose: Not Given Documented by: Folic Acid (Folic Acid 1 Mg Tab) 1 mg PO DAILY [facility] Stop: 11/18/21 08:59 Last Admin: 10/23/21 08:37 Dose: 1 mg Documented by: Hydroxyurea (Hydroxyurea 500 Mg Cap) 1,000 mg PO [facility] Stop: 11/17/21 20:59 Last Admin: 10/22/21 20:28 Dose: 1,000 mg Documented by: Magnesium Hydroxide (Magnesium Hydroxide Susp 30 Ml Udc) 30 ml PO Q12H PRN PRN Reason: Constipation Stop: 11/17/21 17:00 Last Admin: 10/22/21 12:13 Dose: 30 ml Documented by: Meloxicam (Meloxicam 7.5 Mg Tab) 7.5 mg PO QAM [facility] Stop: 11/20/21 08:59 Last Admin: 10/23/21 08:37 Dose: 7.5 mg Documented by: Miscellaneous (Deferasirox: Order Awaiting Action) 1 ea N/A QS [facility] Stop: 11/18/21 17:59 Last Admin: 10/23/21 07:29 Dose: Not Given Documented by: Ondansetron HCl (Ondansetron Inj 2 Mg/Ml 2 Ml Vial) 4 mg IV Q6H PRN PRN Reason: Nausea Stop: 11/17/21 17:00 Oxycodone HCl (Oxycodone Hcl Ir 5 Mg Tab (Immediate Release)) 10 mg PO Q4H PRN PRN Reason: Pain Stop: 11/01/21 17:00 Last Admin: 10/20/21 17:58 Dose: 10 mg Documented by: Polyethylene Glycol (Polyethylene (Miralax) 17 Gm Pack) 17 gm PO DAILY PRN PRN Reason: Constipation Stop: 11/17/21 17:00 Last Admin: 10/21/21 17:37 Dose: 17 gm Documented by: Sertraline HCl (Sertraline Hcl 50 Mg Tablet) 50 mg PO [facility] Stop: 11/17/21 20:59 Last Admin: 10/22/21 20:29 Dose: 50 mg Documented by:
[2021-10-23] MEDS: ENOXAPARIN INJ 40 MG/0.4 ML SYR SQ SCH (20:15)
[2021-10-23] MEDS: SERTRALINE HCL 50 MG TABLET PO SCH (20:49)
[2021-10-23] MEDS: ARIPiprazole 10 MG TAB PO SCH (20:49)
[2021-10-23] MEDS: HYDROXYUREA 500 MG CAP PO SCH (21:25)
[2021-10-24 08:01] LABS: Mean Corpuscular Hgb Conc 34.3 g/dL (32-36); Mean Platelet Volume 9.8 fL (7.4-10.4); Platelet Count 376 K/uL (130-400)
[2021-10-24] MEDS: FOLIC ACID 1 MG TAB PO SCH (08:16)
[2021-10-24] MEDS: ACETAMINOPHEN 325 MG TAB PO SCH ×2 (08:17→14:14)
[2021-10-24] MEDS: MELOXICAM 7.5 MG TAB PO SCH (08:17)
[2021-10-24 08:20] LABS: Anion Gap 7 (3-11); BUN Creatinine Ratio 19.3 (10-20); Blood Urea Nitrogen 11 mg/dl (6-23); Calcium 9.4 mg/dl (8.5-10.1); Carbon Dioxide 27 mmol/L (21-32); Chloride 103 mmol/L (98-107); Creatinine Clr Calc Pharmacy 164.3 ml/min; Est GFR (African American) > 150.0 ml/min; Est GFR (Non-African American) 130.3 ml/min; Glucose 102 mg/dl (70-99(Fasting)); Potassium 3.9 mmol/L (3.5-5.1); Sodium 137 mmol/L (136-145)
[2021-10-24 08:32] LABS: Hematocrit (blood only) 27.4 % (42-52); Hemoglobin 9.4 g/dL (14.0-18.0); Mean Corpuscular Hemoglobin 37.9 pg (25-34); Mean Corpuscular Volume 110.5 fL (80-100); Nucleated RBC % (auto) 18.5 %; RDW Coefficient of Variation 18.7 % (11.5-14.5); RDW Standard Deviation 72.3 fL (36.4-46.3); Red Blood Count 2.48 M/uL (4.7-6.1); White Blood Count 7.56 K/uL (4.8-10.8)
--- NOTE | 2021-10-24 10:48 | Hospitalist Progress Note ---
Date of Service October 24, 2021 Assessment & Plan (1) Sickle cell anemia with pain: (2) Avascular necrosis of bone of shoulder: Plan: This is a 36 yr old incarcerated male from [facility] assisted who presents with b/l knee and chest pain off and on x 3 days. Sickle cell crisis Sickle cell anemia Bilateral knee pain, R hip pain Increased reti count on admission (20.7 %) and chronic anemia on lab Hgb above 9 CXR: Lungs are clear but Findings suggest avascular necrosis of the humeral heads. Admitted to telemetry received IVF on admission, cont. w/ IVF - >stopped Encourage patient to hydrate frequently Control pain with scheduled Tylenol, as needed oxycodone, prn toradol Now started on meloxicam (per ortho recommendations) , and pain is now much better controlled Monitor CBC, retic count, LDH Continue hydroxyurea, folic acid, deferasirox Recent outpatient labs from assisted reveal hemoglobin 9.7, iron 254, TIBC 250, percent saturation 73%, transferrin 242 - from 10/05/2021 Xray knees FINDINGS: RIGHT: Heterogeneous sclerotic appearance of the bones with subcortical cyst versus OCD of the lateral femoral condyle measuring 9 mm. No acute fracture, dislocation or opaque foreign body. Small joint effusion. LEFT: Heterogeneous sclerotic appearance the bones. No acute fracture or dislocation. Trace joint effusion. Enthesophyte of the tibial tuberosity. IMPRESSION: 1. No acute fracture. 2. Subcortical cyst versus OCD of the right lateral femoral condyle. 3. Diffusely heterogeneous sclerotic appearance of the bones likely is likely secondary to chronic anemia associated with the patient's known sickle cell disease. Xray R hip/ pelvis IMPRESSION: 1. No acute fracture or dislocation. 2. Avascular necrosis of the femoral heads without articular collapse. 3. Diffusely heterogeneous sclerotic appearance of the bones likely is likely secondary to chronic anemia associated with the patient's known sickle cell disease. Sclerotic metastasis could cause a similar appearance however is considered less likely. Avascular necrosis of bilateral humeral heads, femoral heads Noted on chest x-ray Patient currently denying shoulder pain Reports R hip pain Consulted orthopedics for further recommendations, likely secondary to sickle cell disease Obtained MRI of right hip and right knee R hip IMPRESSION: 1. There is avascular necrosis of the proximal femora, left greater than right. 2. No acute fracture is seen. 3. There is mild marrow edema within the greater trochanter of the right proximal femur with surrounding soft tissue edema adjacent to the attachment of the gluteus medius tendon. This is of indeterminate significance, and may be related to contusion. An enthesitis could have this appearance, or this could potentially be related to altered biomechanics. Clinical correlation will be essential. 4. Diffuse marrow abnormality seen throughout the bony pelvis and proximal femora is likely related to the patient's history of underlying sickle cell disease. Sclerotic change was seen by x-ray, and although considered much less likely metastatic disease would be impossible to exclude. 5. Trace pelvic ascites. R knee IMPRESSION: 1. Degraded exam. 2. Bone infarcts of the distal femur and proximal tibia with avascular necrosis of the left femoral head. 3. Small joint effusion. No intra-articular loose body. 4. No acute meniscal or ligamentous injury of the knee. 5. Diffusely abnormal appearance of the bone marrow redemonstrated, likely secondary to chronic anemia associated with the patient's known sickle cell disease. Per orthopedics Patient has multifocal avascular necrosis multiple bones both shoulders both knees both hips. He has what appears to be a stable osteochondral fracture lateral femoral condyle right knee. He has a symmetrical inflammation to the hip musculature and greater trochanter no clear history of trauma. Initial treatment would be nonsteroidal anti-inflammatory medication I would recommend meloxicam if cleared by medicine. He states that on a regular basis for several months and do some light physical therapy. Pain management otherwise as necessary. Possible surgical intervention could include drilling of OCD lesion internal fixation of OCD lesion, possible core decompression and stem cell injections. These treatments and sickle cell disease do not have as good of a track record as people without sickle cell disease and may not prevent progression to further degeneration and requirement of an arthroplasty which also has increased risk for failure and people sickle cell disease. For these reasons I recommend he follow-up at a [facility] for the most updated care if he were to choose of surgical intervention. Patient may benefit from a hinged knee brace for support to the right knee and this could be ordered orthotics department if we have that type of brace at the hospital but he may need to have this ordered from medical supply store as an outpatient. October 21, patient's pain better controlled with meloxicam. per RN, did not require any opioid medications today 10/22 -joint pain and much improved, no chest discomfort. 10/23 - clinically patient much improved. Denies any pain, started meloxicam. Orthotics consulted, may need to follow-up for hinged knee brace in assisted after discharge Retic count down to 15% LDH 410 Tbili 2.5 10/24 -patient continues to deny any pain, feeling much better. Hemoglobin stable at 9.4 -discussed with Dr. Wellington, hematology, okay to discharge -Discussed discharge with at [place] [id number] Personality disorder Anxiety Continue Abilify and Zoloft Nicotine dependence Smokes e-cigarette in assisted declines patch DVT ppx: SQ Lovenox Dispo: tele PCP: [facility] FULL CODE Admission and Anticipated Discharge Date Admission Date: October 18, 2021 Subjective Patient seen in follow-up of vaso-occlusive crisis in the setting of sickle cell disease Presented with bilateral knee pain Then also complained of right hip pain Denies fevers, chills, breathing comfortably, denies any cough, denies any more chest discomfort Denies abdominal pain, nausea vomiting Seen by orthopedics for avascular necrosis, also started on meloxicam, which controls patient's pain much better now Overall patient feels much improved. Denies any pain. Review of Systems Review of Systems: All systems reviewed & are unremarkable except as noted in Subjective Physical Exam Physical Exam: General: NAD, well developed Cardiac: Normal S1/S2, no murmur Respiratory: CTA, no crackles or wheezing Abd: ND, NT, soft MSK: no pain to palpation - much improved - previously TTP of the b/l shoulder area (deltoid) and b/l knee, R hip, no swelling of the joints or LE edema Psych: AAOx3, normal affect Results & Data Results & Data ([facility]) Vital Signs (Past 12 Hours) Vital Signs Temp Pulse Pulse Resp BP Pulse Ox 10/24/21 07:50 36.5 C 73 18 107/67 94 10/24/21 04:33 36.8 C 69 18 107/64 94 10/24/21 00:02 75 10/23/21 22:58 36.6 C 69 18 106/66 95 Laboratory Results 10/24/21 10/24/21 Range/Units 07:41 07:41 WBC 7.56 (4.8-10.8) K/uL RBC 2.48 L (4.7-6.1) M/uL Hgb 9.4 L (14.0-18.0) g/dL Hct 27.4 L (42-52) % MCV 110.5 H (80-100) fL MCH 37.9 H (25-34) pg MCHC 34.3 (32-36) g/dL RDW Std Deviation 72.3 H (36.4-46.3) fL RDW Coeff of Noah 18.7 H (11.5-14.5) % Plt Count 376 (130-400) K/uL MPV 9.8 (7.4-10.4) fL Absolute Nucleated RBC 1.40 H (0-0) K/uL Nucleated RBC % (auto) 18.5 % Sodium 137 (136-145) mmol/L Potassium 3.9 (3.5-5.1) mmol/L Chloride 103 (98-107) mmol/L Carbon Dioxide 27 (21-32) mmol/L Anion Gap 7 (3-11) BUN 11 (6-23) mg/dl Creatinine 0.57 L (0.6-1.4) mg/dl Est Cr Clr Drug Dosing 164.3 ml/min Est GFR ( Amer) > 150.0 ml/min Est GFR (Non-Af Amer) 130.3 ml/min BUN/Creatinine Ratio 19.3 (10-20) Glucose 102 H (70-99(Fasting)) mg/dl Calcium 9.4 (8.5-10.1) mg/dl Medications Administered Current Inpatient Medications Acetaminophen (Acetaminophen 325 Mg Tab) 650 mg PO Q4H PRN PRN Reason: Pain or Fever Stop: 11/17/21 17:00 Acetaminophen (Acetaminophen 325 Mg Tab) 650 mg PO QID [facility] Stop: 11/17/21 17:29 Last Admin: 10/24/21 08:17 Dose: 650 mg Documented by: Al Hydrox/Mg Hydrox/Simethicone (Aluminum/Magnesium Susp 30 Ml Udc) 15 ml PO Q4H PRN PRN Reason: Dyspepsia Stop: 11/17/21 17:00 Aripiprazole (Aripiprazole 10 Mg Tab) 20 mg PO HS [facility] Stop: 11/17/21 20:59 Last Admin: 10/23/21 20:49 Dose: 20 mg Documented by: Enoxaparin Sodium (Enoxaparin Inj 40 Mg/0.4 Ml Syr) 40 mg SQ HS [facility] Stop: 11/17/21 20:59 Last Admin: 10/23/21 20:15 Dose: Not Given Documented by: Folic Acid (Folic Acid 1 Mg Tab) 1 mg PO DAILY [facility] Stop: 11/18/21 08:59 Last Admin: 10/24/21 08:16 Dose: 1 mg Documented by: Hydroxyurea (Hydroxyurea 500 Mg Cap) 1,000 mg PO HS [facility] Stop: 11/17/21 20:59 Last Admin: 10/23/21 21:25 Dose: 1,000 mg Documented by: Magnesium Hydroxide (Magnesium Hydroxide Susp 30 Ml Udc) 30 ml PO Q12H PRN PRN Reason: Constipation Stop: 11/17/21 17:00 Last Admin: 10/22/21 12:13 Dose: 30 ml Documented by: Meloxicam (Meloxicam 7.5 Mg Tab) 7.5 mg PO QAM [facility] Stop: 11/20/21 08:59 Last Admin: 10/24/21 08:17 Dose: 7.5 mg Documented by: Miscellaneous (Deferasirox: Order Awaiting Action) 1 ea N/A QS [facility] Stop: 11/18/21 17:59 Last Admin: 10/24/21 07:26 Dose: Not Given Documented by: Ondansetron HCl (Ondansetron Inj 2 Mg/Ml 2 Ml Vial) 4 mg IV Q6H PRN PRN Reason: Nausea Stop: 11/17/21 17:00 Oxycodone HCl (Oxycodone Hcl Ir 5 Mg Tab (Immediate Release)) 10 mg PO Q4H PRN PRN Reason: Pain Stop: 11/01/21 17:00 Last Admin: 10/20/21 17:58 Dose: 10 mg Documented by: Polyethylene Glycol (Polyethylene (Miralax) 17 Gm Pack) 17 gm PO DAILY PRN PRN Reason: Constipation Stop: 11/17/21 17:00 Last Admin: 10/21/21 17:37 Dose: 17 gm Documented by: Sertraline HCl (Sertraline Hcl 50 Mg Tablet) 50 mg PO [facility] Stop: 11/17/21 20:59 Last Admin: 10/23/21 20:49 Dose: 50 mg Documented by:
--- NOTE | 2021-10-24 11:00 | Discharge Summary ---
Date of Service October 24, 2021 Admission HPI Per Admitting Provider This is a 36 yr old incarcerated male from [facility] who presents with b/l knee and chest pain off and on x 3 days. Pt complains of b/l knee pain x 3 days. Pain is worsening. He also complains of CP that is located in upper central chest. Chest pain is not made worse with exertion, deep breath or cough. He has tried ibuprofen with minimal relief. In ED he received IV morphine w/o relief. He denies recent illness, f/c/s, dizziness, lightheaded, syncope, sob, cough, uri sx, n/v/d, abd pain. He has hx of sickle cell disease. He was dx when he was 2-3 yrs old. +FH of sickle cell in both parents. He does not take any pain medications for his sickle cell. Previously he had taken percocet in past prior to being incarcerated. He would take as needed. He is on deferasirox, folic acid and hydroxyurea for sickle cell. His appetite is good. He is unsure what previous hgb levels were. His records sent from facility were reviewed. Previous hgb on 10/05 was 9.7. Admission Exam Per Admitting Provider NAD, well developed Card: Normal S1/S2, no murmur Lungs: CTA, no crackles or wheezing Abd: ND, NT, soft MSK: TTP of the b/l shoulder area (deltoid) and L lateral knee, no swelling of the joints or LE edema Psych: AAOx3, normal affect Principal Diagnosis Vaso-occlusive crisis in the sickle cell disease Avascular necrosis of several joints Discharge Exam General: NAD, well developed Cardiac: Normal S1/S2, no murmur Respiratory: CTA, no crackles or wheezing Abd: ND, NT, soft MSK: no pain to palpation - much improved - previously TTP of the b/l shoulder area (deltoid) and b/l knee, R hip, no swelling of the joints or LE edema Psych: AAOx3, normal affect Discharge Data Consultations 10/18/21 14:55 ED Decision to Admit Stat 10/18/21 15:28 Consult Orthopedic Surgery Routine Ordered Studies 10/20/21 08:56 MR hip RT wo con Routine IMPRESSION: 1. There is avascular necrosis of the proximal femora, left greater than right. 2. No acute fracture is seen. 3. There is mild marrow edema within the greater trochanter of the right proxim al femur with surrounding soft tissue edema adjacent to the attachment of the gluteus medius tendon. This is of indeterminate significance, and may be related to contusion. An enthesitis could have this appearance, or this could potentially be related to altered biomechanics. Clinical correlation will be essential. 4. Diffuse marrow abnormality seen throughout the bony pelvis and proximal femora is likely related to the patient's history of underlying sickle cell disease. Sclerotic change was seen by x-ray, and although considered much less likely metastatic disease would be impossible to exclude. 5. Trace pelvic ascites. MR knee RT wo con Routine IMPRESSION: 1. Degraded exam. 2. Bone infarcts of the distal femur and proximal tibia with avascular necrosis of the left femoral head. 3. Small joint effusion. No intra-articular loose body. 4. No acute meniscal or ligamentous injury of the knee. 5. Diffusely abnormal appearance of the bone marrow redemonstrated, likely secondary to chronic anemia associated with the patient's known sickle cell disease. Hospital Course (1) Sickle cell anemia with pain: (2) Avascular necrosis of bone of shoulder: This is a 36 yr old incarcerated male from [facility] who presents with b/l knee and chest pain off and on x 3 days. Sickle cell crisis Sickle cell anemia Bilateral knee pain, R hip pain Increased reti count on admission (20.7 %) and chronic anemia on lab Hgb above 9 CXR: Lungs are clear but Findings suggest avascular necrosis of the humeral heads. Admitted to telemetry received IVF on admission, cont. w/ IVF - >stopped Encourage patient to hydrate frequently Control pain with scheduled Tylenol, as needed oxycodone, prn toradol Now started on meloxicam (per ortho recommendations) , and pain is now much better controlled Monitor CBC, retic count, LDH Continue hydroxyurea, folic acid, deferasirox Recent outpatient labs from [facility] reveal hemoglobin 9.7, iron 254, TIBC 250, percent saturation 73%, transferrin 242 - from 10/05/2021 Xray knees FINDINGS: RIGHT: Heterogeneous sclerotic appearance of the bones with subcortical cyst versus OCD of the lateral femoral condyle measuring 9 mm. No acute fracture, dislocation or opaque foreign body. Small joint effusion. LEFT: Heterogeneous sclerotic appearance the bones. No acute fracture or dislocation. Trace joint effusion. Enthesophyte of the tibial tuberosity. IMPRESSION: 1. No acute fracture. 2. Subcortical cyst versus OCD of the right lateral femoral condyle. 3. Diffusely heterogeneous sclerotic appearance of the bones likely is likely secondary to chronic anemia associated with the patient's known sickle cell disease. Xray R hip/ pelvis IMPRESSION: 1. No acute fracture or dislocation. 2. Avascular necrosis of the femoral heads without articular collapse. 3. Diffusely heterogeneous sclerotic appearance of the bones likely is likely secondary to chronic anemia associated with the patient's known sickle cell disease. Sclerotic metastasis could cause a similar appearance however is considered less likely. Avascular necrosis of bilateral humeral heads, femoral heads Noted on chest x-ray Patient currently denying shoulder pain Reports R hip pain Consulted orthopedics for further recommendations, likely secondary to sickle cell disease Obtained MRI of right hip and right knee R hip IMPRESSION: 1. There is avascular necrosis of the proximal femora, left greater than right. 2. No acute fracture is seen. 3. There is mild marrow edema within the greater trochanter of the right proximal femur with surrounding soft tissue edema adjacent to the attachment of the gluteus medius tendon. This is of indeterminate significance, and may be related to contusion. An enthesitis could have this appearance, or this could potentially be related to altered biomechanics. Clinical correlation will be essential. 4. Diffuse marrow abnormality seen throughout the bony pelvis and proximal femora is likely related to the patient's history of underlying sickle cell disease. Sclerotic change was seen by x-ray, and although considered much less likely metastatic disease would be impossible to exclude. 5. Trace pelvic ascites. R knee IMPRESSION: 1. Degraded exam. 2. Bone infarcts of the distal femur and proximal tibia with avascular necrosis of the left femoral head. 3. Small joint effusion. No intra-articular loose body. 4. No acute meniscal or ligamentous injury of the knee. 5. Diffusely abnormal appearance of the bone marrow redemonstrated, likely secondary to chronic anemia associated with the patient's known sickle cell disease. Per orthopedics Patient has multifocal avascular necrosis multiple bones both shoulders both knees both hips. He has what appears to be a stable osteochondral fracture lateral femoral condyle right knee. He has a symmetrical inflammation to the hip musculature and greater trochanter no clear history of trauma. Initial treatment would be nonsteroidal anti-inflammatory medication I would recommend meloxicam if cleared by medicine. He states that on a regular basis for several months and do some light physical therapy. Pain management otherwise as necessary. Possible surgical intervention could include drilling of OCD lesion internal fixation of OCD lesion, possible core decompression and stem cell injections. These treatments and sickle cell disease do not have as good of a track record as people without sickle cell disease and may not prevent progression to further degeneration and requirement of an arthroplasty which also has increased risk for failure and people sickle cell disease. For these reasons I recommend he follow-up at a [facility] for the most updated care if he were to choose of surgical intervention. Patient may benefit from a hinged knee brace for support to the right knee and this could be ordered orthotics department if we have that type of brace at the hospital but he may need to have this ordered from medical supply store as an outpatient. October 21, patient's pain better controlled with meloxicam. per RN, did not require any opioid medications today 10/22 -joint pain and much improved, no chest discomfort. 10/23 - clinically patient much improved. Denies any pain, started meloxicam. Orthotics consulted, may need to follow-up for hinged knee brace in [facility] after discharge Retic count down to 15% LDH 410 Tbili 2.5 10/24 -patient continues to deny any pain, feeling much better. Hemoglobin stable at 9.4 -discussed with Dr. Wellington, hematology, okay to discharge -Discussed discharge with at [place] [id number] Personality disorder Anxiety Continue Abilify and Zoloft Nicotine dependence Smokes e-cigarette in [facility] declines patch PCP: [facility] Total Time Total Time Spent Total Time Spent (In Minutes): 40 Discharge Plan Discharge Items [facility]position[facility] Reason For Visit: SICKLE CELL PAIN Discharge Diagnosis: Vaso-occlusive crisis in the sickle cell disease Avascular necrosis of several joints Activity: Per Instructions section Non-emergency contact: Primary Care Provider Call non-emergency contact if: you have any medication questions and your symptoms worsen Follow-up/Referrals: Torey MORLEY [Primary Care Provider] - Diet: Regular Addtl Attending Provider Instructions: Make sure you are well-hydrated. Continue taking hydroxyurea and folic acid. For pain you can take meloxicam. Orthotic for your right knee may be needed/in process of obtaining. Pending Studies at Discharge: No Stand-Alone Forms: My [facility] Skilled Items Patient informed of condition?: Yes Discharge Level of Care: Other Communicable Disease: No Discharge Prognosis: Stable Lines: None Urinary Catheter: No Medications and DC Order Prescriptions: New meloxicam 7.5 mg Tablet 7.5 mg PO QAM Qty: 5 RF: 0 Continued hydroxyurea 500 mg Capsule 1,000 mg PO HS RF: 0 aripiprazole 20 mg Tablet 20 mg PO HS RF: 0 deferasirox 360 MG 1,120 mg PO DAILY RF: 0 folic acid 1 MG 1 mg PO DAILY RF: 0 sertraline 50 MG 50 mg PO HS RF: 0 Discharge Orders: Discharge Order (Routine); Ordered 10/24/21 Ordered By: Fantasma Miller Admission Data Admit Date/Time: 10/18/21 14:53 Attending Provider: Fantasma Miller Admit Provider: Daphnie Pryor Primary Care Provider: Torey MORLEY Other Providers: Daphnie Pryor ; Godwin Coronel
== END 2021-10-24 15:02 | DRG 812 ==
LOC: ED 10:04 → SUATTDRO 14:53 → 2S 14:53

== ENCOUNTER 2022-04-10 11:07 | Inpatient (IN) ==
[2022-04-10] MEDS ORDERED: SODIUM CHLORIDE 0.9% 1000ML 2,000 ML IV ONE (11:35)
[2022-04-10] MEDS ORDERED: ACETAMINOPHEN 1,000 MG/100 ML VIAL IV STA (11:41)
[2022-04-10] MEDS ORDERED: MoRPHine SULFATE 10 MG/ML CARP/VIAL IV STA (11:41)
--- NOTE | 2022-04-10 12:24 | XRay Report ---
XR chest 1V portable HISTORY: 36 years-old Male lateral CP acute chest pain in a patient with history of sickle cell dise ase COMPARISON: Chest radiograph 10/18/2021 TECHNIQUE: AP view of the chest FINDINGS: Cardiac silhouette is enlarged. No pneumothorax, pleural effusion, airspace consolidation or overt pu lmonary edema. There is diffuse sclerosis of the osseous structures with avascular necrosis of the hu meral heads. 8 shaped vertebral bodies. IMPRESSION: 1. No acute processes of the chest. 2. Skeletal findings compatible with the patient's clinical history of sickle cell disease with avasc ular necrosis of the humeral heads. ACT 112: Negative or not required by law. The above report was generated using voice recognition software. It may contain grammatical, syntax o r spelling errors. Electronically signed by: Roge Peña M.D. 04/10/2022 12:22 PM
[2022-04-10] MEDS ORDERED: HYDROmorphone INJ 1 MG/ML SYRINGE IV STA ×2 (12:46→14:47)
[2022-04-10 12:50] LABS: Hematocrit (blood only) 27.1 % (40.1-51.0); Hemoglobin 9.5 g/dl (14.0-18.0); Mean Corpuscular Hemoglobin 39.4 pg (25.0-34.0); Mean Corpuscular Hgb Conc 35.1 g/dL (32.0-36.0); Mean Corpuscular Volume 112.4 fL (80.0-100.0); Mean Platelet Volume 10.1 fL (9.4-12.4); Nucleated RBC % (auto) 49.5 %; Platelet Count 286 K/uL (130-400); RDW Coefficient of Variation 20.3 % (11.5-14.5); RDW Standard Deviation 79.7 fL (36.4-46.3); Red Blood Count 2.41 M/uL (4.63-6.08); White Blood Count 7.48 K/ul (4.8-10.8)
[2022-04-10 12:51] LABS: Basophils # (auto) 0.06 K/uL (0-0.2); Basophils % (auto) 0.8 %; Eosinophils # (auto) 0.23 K/uL (0-0.50); Eosinophils % (auto) 3.1 %; Immature Granulocytes # (auto) 0.17 K/uL (0.00-0.02); Immature Granulocytes % (auto) 2.3 %; Lymphocytes % (auto) 36.1 %; Monocytes # (auto) 0.92 K/uL (0.24-0.82); Monocytes % (auto) 12.3 %; Neutrophils % (auto) 45.4 %; Reticulocyte % 21.9 % (0.5-2.0); Reticulocytes # 0.53 10^6/uL (0.02-0.10)
[2022-04-10 12:55] LABS: Alanine Aminotransferase 49 U/L (7-52); Albumin Globulin Ratio 1.4 (0.9-2); Albumin Level 4.3 gm/dl (3.4-5.0); Alkaline Phosphatase 150 U/L (34-104); Anion Gap 5 (3-11); Aspartate Aminotransferase 44 U/L (13-39); BUN Creatinine Ratio 16.9 (10-20); Bilirubin,Total 2.4 mg/dl (0.2-1.0); Blood Urea Nitrogen 11 mg/dl (6-23); Carbon Dioxide 28 mmol/L (21-32); Chloride 106 mmol/L (98-107); Est GFR (Non-African American) 123.4 ml/min; Globulin 3.1 gm/dl (2.5-4.0); Glucose 72 mg/dl (70-99(Fasting)); Potassium 4.1 mmol/L (3.5-5.1); Sodium 139 mmol/L (136-145); Total Protein 7.4 gm/dl (6.0-8.3)
[2022-04-10 13:01] LABS: Basophilic Stippling 1+; Polychromasia 3+; Sickle Cells 1+; Target Cells 2+
[2022-04-10 15:20] LABS: Appearance Urine Clear (Clear); Bacteria Urine Automated Negative (Negative); Bilirubin Urine Negative (Negative); Blood Urine Negative (Negative); Cast Urine Automated 0 /lpf (0-5); Color Urine Yellow; Glucose Urine UA Negative (Negative); Ketones Urine Negative (Negative); Leukocyte Esterase Urine Trace (Negative); Nitrite Urine Negative (Negative); Protein Urine Negative (Negative); RBC Urine Automated 0-4 /hpf (0-4); Urobilinogen Urine Positive (Negative)
--- NOTE | 2022-04-10 16:06 | Emergency Department Note ---
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 He reports he has not missed any of his medications. He denies any chest pain or shortness of breath. He denies any fevers, chills, cough, vomiting or diarrhea. He denies any pain with urination but does report his urine has appeared darker. He reports 8-10/10 pain. On arrival patient is no acute distress, afebrile stable vital signs. Subjective pain to palpation of the left lateral hip and left flank/lower CW without discrete tenderness. EKG without overt acute ischemia. CXR negative for acute cardiopulmonary process but otherwise notes avascular necrosis of bilateral humeral heads consistent with patient's sickle cell disease. WBC and platelets within normal limits. H/H 9.5/27.1 similar to prior range values. Reticulocyte count is 21.9% consistent with patient's prior sickle cell pain crises. Chemistry without metabolic acidosis. Total bilirubin 2.4, similar to prior. AST, 44, nonspecific and similar to prior. UA without convincing evidence of infection. COVID-19 RNA, ROSA test was negative patient is treated with IV fluid hydration, APAP and 7 mg of IV morphine followed by 1 mg of IV Dilaudid. Patient denied any significant improvement in his pain. Thus, he did agree with plan for admission for further symptomatic treatment. He was given additional dose of 1mg IV Dilaudid. Case was discussed with Ml Landa PAC, with Dr. Freedom Walls hospitalist who will evaluate the patient for admission. Triage Nursing notes reviewed and agree them. Prior medical records reviewed Vital Signs: reviewed and remarkable for no significant abnormalities Differential diagnosis: Infection, dehydration, metabolic abnormality, hypo/hyperglycemia, electrolyte disturbance, anemia, hypoxia, cardiac sources, intracerebral event, toxicologic, neurologic, as well as other pathologies. ER treatment provided: See below. Diagnostics interpreted by me: ECG: Normal sinus rhythm, 72 bpm, no ectopy, LVH, no overt ST elevation or depression, QTC 433, closer to Cardiac Monitoring: An order for continuous cardiac monitoring was placed and demonstrated Normal sinus rhythm, 72 bpm, no ectopy. Laboratory studies: See below Imaging studies: See below Consultation(s): Ml Landa PAC, with Dr. 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 He reports he has not missed any of his medications. He denies any chest pain or shortness of breath. He denies any fevers, chills, cough, vomiting or diarrhea. He denies any pain with urination but does report his urine has appeared darker. He reports 8-10/10 pain. ROS: See above HPI for pertinent positives & negatives. A total of 10 systems reviewed and were otherwise negative. VITALS:See Below PHYSICAL EXAMINATION: GENERAL: Awake, alert, fatigued-appearing, in no distress HENT: Normocephalic, atraumatic. Oropharynx with dry mucous membranes and otherwise unremarkable. EYES: Normal conjunctiva. Sclera non-icteric. NECK: Supple. No nuchal rigidity. FROM. No JVD. RESPIRATORY: Clear to auscultation. CARDIAC: Regular rate, normal rhythm. Extremities warm and well perfused. Pulses equal. ABDOMEN: Soft, non-distended. No tenderness to palpation. No rebound or guarding. No masses. RECTAL: Deferred. MUSCULOSKELETAL: The back is symmetrical on inspection without obvious abnorm ality. There is no CVA tenderness to palpation. No joint edema. Subjective pain to palpation of the left lateral hip and left flank/lower chest wall without discrete tenderness. LOWER EXTREMITIES: Calves are equal size bilaterally and non-tender. No edema. No discoloration. NEURO: Normal sensorium. No sensory or motor deficits noted. SKIN: No rash or jaundice noted. Soren Lees MD Past Med/Surg History Medical History Anxiety Personality disorder Sickle cell anemia Surgical History Hx of cholecystectomy Family History Father Sickle cell anemia Mother Sickle cell anemia Social History Smoking Status: Current every day smoker Tobacco Type: Cigarettes Second Hand Exposure: No; Hx Alcohol Use: No Hx Substance Use: No Preferred Language: Spanish Communication Ability: Effective Clam Grower Required: No Beliefs That Will Affect Care: None marital status: Unknown Current Living Situation: Other Current Living Situation Comment: [facility] Feels Safe at Home: Yes Assistive Devices: None Allergies Allergies Allergy/AdvReac Type Severity Reaction Status Date / Time No Known Allergies Allergy Verified 04/10/22 17:37 Home Meds Home Medications Medication Instructions Recorded Confirmed aripiprazole 20 mg tablet 20 mg PO HS 10/18/21 04/10/22 deferasirox 3 tab PO DAILY 10/18/21 04/10/22 folic acid 1 mg PO DAILY 10/18/21 04/10/22 hydroxyurea 500 mg capsule 1,000 mg PO HS 10/18/21 04/10/22 sertraline 100 mg tablet 100 mg PO HS 04/10/22 04/10/22 Results & Data (ED) Vital Signs Vital Signs - 24 hr 04/10/22 11:30 04/10/22 12:10 04/10/22 12:02 Temperature 37.1 C Temperature Source Oral Pulse Rate 71 72 69 Pulse Rate from SpO2 Sensor 68 Respiratory Rate 18 18 22 Respiratory Effort / Characteristics Non-Labored Spontaneous Respiratory Depth Normal Blood Pressure 108/62 Blood Pressure Mean 77 Pulse Oximetry 94 97 93 Oxygen Delivery Method Room Air Room Air Sepsis Recent Fever Within 48 Hours No Sepsis New/Unexplained Change in Mental Status N/A Sepsis Action Taken by Nursing No Action Required 04/10/22 12:12 04/10/22 12:12 04/10/22 12:30 Temperature Temperature Source Pulse Rate 59 L Pulse Rate from SpO2 Sensor 58 L Respiratory Rate 24 Respiratory Effort / Characteristics Respiratory Depth Blood Pressure 127/73 116/72 Blood Pressure Mean 91 86 Pulse Oximetry 93 Oxygen Delivery Method Sepsis Recent Fever Within 48 Hours Sepsis New/Unexplained Change in Mental Status Sepsis Action Taken by Nursing 04/10/22 12:30 04/10/22 13:00 04/10/22 13:00 Temperature Temperature Source Pulse Rate 57 L 67 Pulse Rate from SpO2 Sensor 66 Respiratory Rate 23 24 Respiratory Effort / Characteristics Respiratory Depth Blood Pressure 134/89 Blood Pressure Mean 104 Pulse Oximetry 95 Oxygen Delivery Method Sepsis Recent Fever Within 48 Hours Sepsis New/Unexplained Change in Mental Status Sepsis Action Taken by Nursing 04/10/22 13:30 04/10/22 13:30 Temperature Temperature Source Pulse Rate 68 Pulse Rate from SpO2 Sensor 70 Respiratory Rate 21 Respiratory Effort / Characteristics Respiratory Depth Blood Pressure 130/73 Blood Pressure Mean 92 Pulse Oximetry 92 Oxygen Delivery Method Sepsis Recent Fever Within 48 Hours Sepsis New/Unexplained Change in Mental Status Sepsis Action Taken by Nursing Laboratory Data Attestation: I reviewed the patient's lab results. Result diagrams: 04/10/22 11:58 04/10/22 11:58 Lab Results 04/10/22 04/10/22 04/10/22 Range/Units 11:58 11:58 14:28 WBC 7.48 (4.8-10.8) K/ul RBC 2.41 L (4.63-6.08) M/uL Hgb 9.5 L (14.0-18.0) g/dl Hct 27.1 L (40.1-51.0) % MCV 112.4 H (80.0-100.0) fL MCH 39.4 H (25.0-34.0) pg MCHC 35.1 (32.0-36.0) g/dL RDW Std Deviation 79.7 H (36.4-46.3) fL RDW Coeff of Noah 20.3 H (11.5-14.5) % Plt Count 286 (130-400) K/uL MPV 10.1 (9.4-12.4) fL Immature Gran % (Auto) 2.3 % Neut % (Auto) 45.4 % Lymph % (Auto) 36.1 % Wilkinson % (Auto) 12.3 % Eos % (Auto) 3.1 % Baso % (Auto) 0.8 % Reticulocyte % (Auto) 21.9 H (0.5-2.0) % Neut # (Auto) 3.40 (1.4-6.5) K/uL Lymph # (Auto) 2.70 (1.2-3.4) K/uL Wilkinson # (Auto) 0.92 H (0.24-0.82) K/uL Eos # (Auto) 0.23 (0-0.50) K/uL Baso # (Auto) 0.06 (0-0.2) K/uL Reticulocyte # 0.53 H (0.02-0.10) 10^6/uL Immature Gran # (Auto) 0.17 H (0.00-0.02) K/uL Absolute Nucleated RBC 3.70 H (0-0) K/uL Nucleated RBC % (auto) 49.5 % Polychromasia 3+ Basophilic Stippling 1+ Sickle Cells 1+ Target Cells 2+ Sodium 139 (136-145) mmol/L Potassium 4.1 (3.5-5.1) mmol/L Chloride 106 (98-107) mmol/L Carbon Dioxide 28 (21-32) mmol/L Anion Gap 5 (3-11) BUN 11 (6-23) mg/dl Creatinine 0.65 (0.6-1.4) mg/dl Est Cr Clr Drug Dosing Not Reportable Est GFR ( Amer) 143.0 ml/min Est GFR (Non-Af Amer) 123.4 ml/min BUN/Creatinine Ratio 16.9 (10-20) Glucose 72 (70-99(Fasting)) mg/dl Calcium 9.0 (8.5-10.1) mg/dl Total Bilirubin 2.4 H (0.2-1.0) mg/dl AST 44 H (13-39) U/L ALT 49 (7-52) U/L Alkaline Phosphatase 150 H (34-104) U/L Total Protein 7.4 (6.0-8.3) gm/dl Albumin 4.3 (3.4-5.0) gm/dl Globulin 3.1 (2.5-4.0) gm/dl Albumin/Globulin Ratio 1.4 (0.9-2) Urine Color Yellow Urine Appearance Clear (Clear) Urine pH 7.0 (4.5-7.5) Ur Specific Leonard 1.010 (1.000-1.030) Urine Protein Negative (Negative) Urine Glucose (UA) Negative (Negative) Urine Ketones Negative (Negative) Urine Blood Negative (Negative) Urine Nitrite Negative (Negative) Urine Bilirubin Negative (Negative) Urine Urobilinogen Positive H (Negative) Ur Leukocyte Esterase Trace H (Negative) Urine WBC (Auto) 1-5 (0-5) /hpf Urine RBC (Auto) 0-4 (0-4) /hpf U Hyaline Cast (Auto) 0 (0-5) /lpf U Epithel Cells (Auto) 5-10 H (0-5) /lpf Urine Bacteria (Auto) Negative (Negative) SARS-CoV-2, RNA, NAAT (NEGATIVE) 04/10/22 Range/Units 14:28 WBC (4.8-10.8) K/ul RBC (4.63-6.08) M/uL Hgb (14.0-18.0) g/dl Hct (40.1-51.0) % MCV (80.0-100.0) fL MCH (25.0-34.0) pg MCHC (32.0-36.0) g/dL RDW Std Deviation (36.4-46.3) fL RDW Coeff of Noah (11.5-14.5) % Plt Count (130-400) K/uL MPV (9.4-12.4) fL Immature Gran % (Auto) % Neut % (Auto) % Lymph % (Auto) % Wilkinson % (Auto) % Eos % (Auto) % Baso % (Auto) % Reticulocyte % (Auto) (0.5-2.0) % Neut # (Auto) (1.4-6.5) K/uL Lymph # (Auto) (1.2-3.4) K/uL Wilkinson # (Auto) (0.24-0.82) K/uL Eos # (Auto) (0-0.50) K/uL Baso # (Auto) (0-0.2) K/uL Reticulocyte # (0.02-0.10) 10^6/uL Immature Gran # (Auto) (0.00-0.02) K/uL Absolute Nucleated RBC (0-0) K/uL Nucleated RBC % (auto) % Polychromasia Basophilic Stippling Sickle Cells Target Cells Sodium (136-145) mmol/L Potassium (3.5-5.1) mmol/L Chloride (98-107) mmol/L Carbon Dioxide (21-32) mmol/L Anion Gap (3-11) BUN (6-23) mg/dl Creatinine (0.6-1.4) mg/dl Est Cr Clr Drug Dosing Est GFR ( Amer) ml/min Est GFR (Non-Af Amer) ml/min BUN/Creatinine Ratio (10-20) Glucose (70-99(Fasting)) mg/dl Calcium (8.5-10.1) mg/dl Total Bilirubin (0.2-1.0) mg/dl AST (13-39) U/L ALT (7-52) U/L Alkaline Phosphatase (34-104) U/L Total Protein (6.0-8.3) gm/dl Albumin (3.4-5.0) gm/dl Globulin (2.5-4.0) gm/dl Albumin/Globulin Ratio (0.9-2) Urine Color Urine Appearance (Clear) Urine pH (4.5-7.5) Ur Specific Leonard (1.000-1.030) Urine Protein (Negative) Urine Glucose (UA) (Negative) Urine Ketones (Negative) Urine Blood (Negative) Urine Nitrite (Negative) Urine Bilirubin (Negative) Urine Urobilinogen (Negative) Ur Leukocyte Esterase (Negative) Urine WBC (Auto) (0-5) /hpf Urine RBC (Auto) (0-4) /hpf U Hyaline Cast (Auto) (0-5) /lpf U Epithel Cells (Auto) (0-5) /lpf Urine Bacteria (Auto) (Negative) SARS-CoV-2, RNA, NAAT NEGATIVE (NEGATIVE) Administered Medications Acetaminophen (Acetaminophen 500 Mg Tab) 1,000 mg PO Q8H KEELEY Stop: 05/10/22 19:59 Last Admin: 04/10/22 20:10 Dose: 1,000 mg Documented By: SHIRA Ceftriaxone Sodium 2,000 mg/ (Dextrose) 70 mls @ 100 mls/hr IV Q24H KEELEY; Protocol Stop: 04/12/22 17:44 Last Infusion: 04/10/22 19:25 Dose: 0 mls/hr Documented By: Admin: 04/10/22 18:54 Dose: 100 mls/hr Documented By: BETTINA Azithromycin 500 mg/ Dextrose 255 mls @ 127.5 mls/hr IV Q24H [facility] Stop: 04/12/22 16:24 Last Admin: 04/10/22 20:01 Dose: 127.5 mls/hr Documented By: SHIRA Sodium Chloride (Nss 1000ml) 1,000 mls @ 100 mls/hr IV .Q10H KEELEY Stop: 04/11/22 12:29 Last Admin: 04/10/22 18:54 Dose: 100 mls/hr Documented By: BETTINA Ketorolac Tromethamine (Ketorolac Tromethamine 15 Mg/Ml Vial) 15 mg IV Q8H KEELEY Stop: 04/15/22 16:29 Last Admin: 04/10/22 18:53 Dose: 15 mg Documented By: BETTINA Discontinued Medications Hydromorphone HCl (Hydromorphone Inj 1 Mg/Ml Syringe) 1 mg IV NOW STA Stop: 04/10/22 12:47 Last Admin: 04/10/22 12:58 Dose: 1 mg Documented By: BETTINA Hydromorphone HCl (Hydromorphone Inj 1 Mg/Ml Syringe) 1 mg IV NOW STA Stop: 04/10/22 14:48 Last Admin: 04/10/22 15:04 Dose: 1 mg Documented By: BETTINA Sodium Chloride (Nss 1000ml) 2,000 mls @ 999 mls/hr IV .Q2H1M ONE Stop: 04/10/22 13:35 Last Infusion: 04/10/22 15:28 Dose: 0 mls/hr Documented By: Admin: 04/10/22 12:04 Dose: 999 mls/hr Documented By: BETTINA Acetaminophen (Ofirmev) 1,000 mg in 100 mls @ 400 mls/hr IV NOW STA Stop: 04/10/22 11:55 Last Infusion: 04/10/22 17:18 Dose: 0 mls/hr Documented By: Admin: 04/10/22 12:03 Dose: 400 mls/hr Documented By: BETTINA Ioversol (Optiray 350 100ml) 87 ml IV ONCE ONE Stop: 04/10/22 16:56 Last Admin: 04/10/22 16:55 Dose: 87 ml Documented By: LAYO Morphine Sulfate (Morphine Sulfate 10 Mg/Ml Carp/Vial) 7 mg IV NOW STA Stop: 04/10/22 11:42 Last Admin: 04/10/22 12:03 Dose: 7 mg Documented By: BETTINA Oxycodone HCl (Oxycodone Hcl Ir 5 Mg Tab (Immediate Release)) 5 mg PO NOW STA Stop: 04/10/22 19:09 Last Admin: 04/10/22 20:01 Dose: 5 mg Documented By: SHIRA Imaging Data Radiologist's Impression: Chest X-Ray 04/10/22 11:35 XR chest 1V portable HISTORY: 36 years-old Male lateral CP acute chest pain in a patient with history of sickle cell disease COMPARISON: Chest radiograph 10/18/2021 TECHNIQUE: AP view of the chest FINDINGS: Cardiac silhouette is enlarged. No pneumothorax, pleural effusion, airspace consolidation or overt pulmonary edema. There is diffuse sclerosis of the osseous structures with avascular necrosis of the humeral heads. 8 shaped vertebral bodies. IMPRESSION: 1. No acute processes of the chest. 2. Skeletal findings compatible with the patient's clinical history of sickle cell disease with avascular necrosis of the humeral heads. ACT 112: Negative or not required by law. The above report was generated using voice recognition software. It may contain grammatical, syntax or spelling errors. Electronically signed by: Roge Peña M.D. 04/10/2022 12:22 PM Discharge Plan Visit Data Chief Complaint: Abdominal Pain ED Provider: Soren Lees ED Midlevel Provider: Keila Don Discharge Problem: Sickle cell anemia with pain, Left hip pain, Rib pain on left side Patient Disposition: Admitted As Inpatient Discharge Instructions Interventions: ED Discharge Assessment Last Done: 04/10/22 17:35
--- NOTE | 2022-04-10 16:06 | History & Physical Report ---
Date of Service April 10, 2022 Assessment & Plan (1) Sickle cell crisis: Plan: Suspect vaso-occlusive crisis based on clinical picture and history - Admit to med telemetry - IVF hydration at 100 ml/hr x 2L - Pain control - scheduled acetaminophen and toradol, prn oxycodone - Consult hematology for additional recommendations - CT abd/pel to evaluate for potential splenic infarct, especially with LUQ pain - Broad spectrum antibiotics - Follow labs - Supplemental O2 to maintain sats >95% - BioFire to rule out resp pathogen as trigger (2) Personality disorder: (3) Avascular necrosis of bone of shoulder: Plan: Chronic issue - no acute issues (4) Tobacco use disorder: Plan Continue other outpatient medications as appropriate. Pt seen and reviewed with attending physician, Dr. Loja. Plan of care discussed and as outlined above. Code Status: Full Code DVT Prophylaxis: Gregorio Landa PA-C History of Present Illness Chief Complaint: left side pain Primary Care Provider: [facility] This is a 36 y/o male with a history of sickle cell disease with a prior vaso- occulsive crisis in October requiring hospitalization and history of avascular necrosis of several joints who presented to the ED today from [facility] with left sided pain thought secondary to sickle cell crisis. Pt reports that the pain started in his left flank yesterday afternoon and is now also present in his left arm and left leg. It feels similar to prior episodes of sickle cell crisis. He denies chest pain, dyspnea, ALVARADO, dizziness, fevers, chills, N/V/D, dysuria. He has had some relief of the pain with the medications in the ED but it doesn't last. He reports being more thirsty than usual since yesterday regardless of how much water he tried to drink. He is unsure how much water he drinks in an average day. Pt was diagnosed with sickle cell when he was 2-3 yrs old. He follows with hematology while at [facility] and per the last note, has been stable. His baseline Hgb appears to be around 9.5. Allergies Allergy/AdvReac Type Severity Reaction Status Date / Time No Known Allergies Allergy Verified 04/10/22 17:37 Home Medications Medication Instructions Recorded Confirmed Type aripiprazole 20 mg tablet 20 mg PO HS 10/18/21 04/10/22 History deferasirox 3 tab PO DAILY 10/18/21 04/10/22 History folic acid 1 mg PO DAILY 10/18/21 04/10/22 History hydroxyurea 500 mg capsule 1,000 mg PO HS 10/18/21 04/10/22 History sertraline 100 mg tablet 100 mg PO HS 04/10/22 04/10/22 History Past Med/Surg History Medical History Anxiety Personality disorder Sickle cell anemia Surgical History Hx of cholecystectomy Family History Father Sickle cell anemia Mother Sickle cell anemia Social History Smoking Status: Current every day smoker Tobacco Type: Cigarettes Second Hand Exposure: No; Hx Alcohol Use: No Hx Substance Use: No Preferred Language: Portuguese Communication Ability: Effective 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 Beliefs That Will Affect Care: None marital status: Unknown Current Living Situation: Other Current Living Situation Comment: Assisted Feels Safe at Home: Yes Assistive Devices: None Review of Systems Review of Systems: All systems reviewed & are unremarkable except as noted in HPI & below Constitutional: no fever, no chills, no sweats and no anorexia Ear, Nose, Mouth, Throat: no nasal congestion and no sore throat Respiratory: no cough, no dyspnea and no wheezing Cardiovascular: no chest pain, no palpitations, no syncope and no edema Gastrointestinal: no nausea, no vomiting and no change in bowel habits Genitourinary: no dysuria or no hematuria Musculoskeletal: left arm and leg pain - see HPI Integumentary: no rash Neurologic: no numbness, no seizure-like activity and no headache(s) Physical Exam Constitutional: well developed and well nourished; no acute distress Eyes: + anicteric sclerae Neck: trachea midline Respiratory: no respiratory distress and no labored breathing Auscultation: lungs clear to auscultation bilaterally; no rales, no rhonchi and no wheezes Cardiovascular: Rate/Rhythm: regular rate and regular rhythm Heart Sounds: no murmur Vessels: posterior tibial pulses present and radial pulses present Extremities: no edema Gastrointestinal (Abdomen): Inspection/Auscultation: normal bowel sounds; abdomen not distended Percussion/Palpation: + abdomen tender (left lateral UQ/flank with mild fullness) and abdomen soft Musculoskeletal: Head/Neck/Chest: normocephalic, head atraumatic and neck supple Neurologic: moves all extremities; no focal motor deficits and not confused Psychiatric: A+Ox3, euthymic affect Results & Data Results & Data ([facility]) Vital Signs (Past 12 Hours) Vital Signs Temp Pulse Resp BP Pulse Ox O2 Del Method 04/10/22 13:30 68 21 92 04/10/22 13:30 130/73 04/10/22 13:00 67 24 95 04/10/22 13:00 134/89 04/10/22 12:30 57 L 23 04/10/22 12:30 116/72 04/10/22 12:12 127/73 04/10/22 12:12 59 L 24 93 04/10/22 12:02 69 22 93 04/10/22 12:10 72 18 97 Room Air 04/10/22 11:30 37.1 C 71 18 108/62 94 Room Air Laboratory Results Laboratory Results - last 24 hr 04/10/22 04/10/22 04/10/22 11:58 11:58 14:28 WBC 7.48 RBC 2.41 L Hgb 9.5 L Hct 27.1 L MCV 112.4 H MCH 39.4 H MCHC 35.1 RDW Std Deviation 79.7 H RDW Coeff of Noah 20.3 H Plt Count 286 MPV 10.1 Immature Gran % (Auto) 2.3 Neut % (Auto) 45.4 Lymph % (Auto) 36.1 Swisher % (Auto) 12.3 Eos % (Auto) 3.1 Baso % (Auto) 0.8 Reticulocyte % (Auto) 21.9 H Neut # (Auto) 3.40 Lymph # (Auto) 2.70 Swisher # (Auto) 0.92 H Eos # (Auto) 0.23 Baso # (Auto) 0.06 Reticulocyte # 0.53 H Immature Gran # (Auto) 0.17 H Absolute Nucleated RBC 3.70 H Nucleated RBC % (auto) 49.5 Polychromasia 3+ Basophilic Stippling 1+ Sickle Cells 1+ Target Cells 2+ Sodium 139 Potassium 4.1 Chloride 106 Carbon Dioxide 28 Anion Gap 5 BUN 11 Creatinine 0.65 Est Cr Clr Drug Dosing Not Reportable Est GFR ( Amer) 143.0 Est GFR (Non-Af Amer) 123.4 BUN/Creatinine Ratio 16.9 Glucose 72 Calcium 9.0 Total Bilirubin 2.4 H AST 44 H ALT 49 Alkaline Phosphatase 150 H Total Protein 7.4 Albumin 4.3 Globulin 3.1 Albumin/Globulin Ratio 1.4 Urine Color Yellow Urine Appearance Clear Urine pH 7.0 Ur Specific [place] 1.010 Urine Protein Negative Urine Glucose (UA) Negative Urine Ketones Negative Urine Blood Negative Urine Nitrite Negative Urine Bilirubin Negative Urine Urobilinogen Positive H Ur Leukocyte Esterase Trace H Urine WBC (Auto) 1-5 Urine RBC (Auto) 0-4 U Hyaline Cast (Auto) 0 U Epithel Cells (Auto) 5-10 H Urine Bacteria (Auto) Negative SARS-CoV-2, RNA, NAAT 04/10/22 14:28 WBC RBC Hgb Hct MCV MCH MCHC RDW Std Deviation RDW Coeff of Noah Plt Count MPV Immature Gran % (Auto) Neut % (Auto) Lymph % (Auto) Swisher % (Auto) Eos % (Auto) Baso % (Auto) Reticulocyte % (Auto) Neut # (Auto) Lymph # (Auto) Swisher # (Auto) Eos # (Auto) Baso # (Auto) Reticulocyte # Immature Gran # (Auto) Absolute Nucleated RBC Nucleated RBC % (auto) Polychromasia Basophilic Stippling Sickle Cells Target Cells Sodium Potassium Chloride Carbon Dioxide Anion Gap BUN Creatinine Est Cr Clr Drug Dosing Est GFR ( Amer) Est GFR (Non-Af Amer) BUN/Creatinine Ratio Glucose Calcium Total Bilirubin AST ALT Alkaline Phosphatase Total Protein Albumin Globulin Albumin/Globulin Ratio Urine Color Urine Appearance Urine pH Ur Specific [place] Urine Protein Urine Glucose (UA) Urine Ketones Urine Blood Urine Nitrite Urine Bilirubin Urine Urobilinogen Ur Leukocyte Esterase Urine WBC (Auto) Urine RBC (Auto) U Hyaline Cast (Auto) U Epithel Cells (Auto) Urine Bacteria (Auto) SARS-CoV-2, RNA, NAAT NEGATIVE Diagnostic Findings Chest X-ray 04/10/22 - IMPRESSION: 1. No acute processes of the chest. 2. Skeletal findings compatible with the patient's clinical history of sickle cell disease with avascular necrosis of the humeral heads. Medications Administered Discontinued Medications Hydromorphone HCl (Hydromorphone Inj 1 Mg/Ml Syringe) 1 mg IV NOW STA Stop: 04/10/22 12:47 Last Admin: 04/10/22 12:58 Dose: 1 mg Documented By: BETTINA Hydromorphone HCl (Hydromorphone Inj 1 Mg/Ml Syringe) 1 mg IV NOW STA Stop: 04/10/22 14:48 Last Admin: 04/10/22 15:04 Dose: 1 mg Documented By: BETTINA Sodium Chloride (Nss 1000ml) 2,000 mls @ 999 mls/hr IV .Q2H1M ONE Stop: 04/10/22 13:35 Last Infusion: 04/10/22 15:28 Dose: 0 mls/hr Documented By: Admin: 04/10/22 12:04 Dose: 999 mls/hr Documented By: BETTINA Acetaminophen (Ofirmev) 1,000 mg in 100 mls @ 400 mls/hr IV NOW STA Stop: 04/10/22 11:55 Last Admin: 04/10/22 12:03 Dose: 400 mls/hr Documented By: BETTINA Morphine Sulfate (Morphine Sulfate 10 Mg/Ml Carp/Vial) 7 mg IV NOW STA Stop: 04/10/22 11:42 Last Admin: 04/10/22 12:03 Dose: 7 mg Documented By: BETTINA Code Status & VTE Plan VTE Prophylaxis Plan VTE Prophylaxis will be ordered: Yes Supervising Physician Co-Signing Physician Notes I have seen and examined the patient and have discussed the case with the provider above. I agree with the assessment and plan as stated with the following exceptions. 36 yo incarcerated man presents with acute onset left lower chest wall and left upper abdominal pain. Denies fevers, chills, cough or other respiratory symptoms, UTI symptoms, etc. Biofire respiratory panel was negative, CXR was clear, however, he received empiric antibiotics pending clinical improvement. CT abd/pelvis reveals no evidence of spleen, indicating possible autosplenectomy in the past. There are no acute intra-abdominal findings. WBC is normal, H/H is 9.5/27.1 and platelets are normal. He takes hydroxyurea regularly and deferasirox. BMP is normal and UA is clear. Physical exam reveals WNWD man in mild distress, unremarkable cardiopulmonary exam. Abdomen is soft and nondistended with TTP in the LUQ. He is neurologically intact and mentating well. This is a 36 yo M with sickle cell crisis in context of long standing sickle cell disease. Will continue with hydration and pain medication, cont hydroxyurea, cont broad spectrum antibiotics and consult hematology. DO [place]
[2022-04-10] MEDS ORDERED: oxyCODONE HCL IR 5 MG TAB (IMMEDIATE RELEASE) PO PRN (16:28)
--- NOTE | 2022-04-10 16:28 | Electrocardiogram Report ---
Test Reason : Blood Pressure : / mmHG Vent. Rate : 072 BPM Atrial Rate : 072 BPM P-R Int : 174 ms QRS Dur : 082 ms QT Int : 396 ms P-R-T Axes : 026 -01 029 degrees QTc Int : 433 ms Normal sinus rhythm Moderate voltage criteria for LVH, may be normal variant Borderline ECG When compared with ECG of 18-OCT-2021 10:21, No significant change was found Confirmed by Hua Juan ([id number]) on 04/10/2022 4:27:59 PM Referred By: [facility] Confirmed By:Nicholas Juan
[2022-04-10] MEDS ORDERED: SODIUM CHLORIDE 0.9% 1000ML 1,000 ML IV SCH (16:30)
[2022-04-10] MEDS ORDERED: OPTIRAY 350 100ml IV ONE (16:55)
--- NOTE | 2022-04-10 17:34 | CT Scan Report ---
ABDOMEN AND PELVIS CT WITH IV CONTRAST CT DOSE: 498.91 mGycm HISTORY: Left upper quadrant pain, sickle cell crisis - eval for infarct TECHNIQUE: Multiaxial CT images of the abdomen and pelvis were performed following the use of intrave nous contrast. A dose lowering technique was utilized adhering to the principles of ALARA. COMPARISON STUDY: None. FINDINGS: Mild dependent changes seen at the lung bases. No pneumoperitoneum. No pneumatosis. Diffuse sclerosis throughout the visualized osseous structures. There are subtle H shaped vertebral bodies. This likely corresponds to the patient's known history of sickle cell disease. Probable avascular nec rosis of the bilateral femoral heads without evidence for articular collapse. The heart is mildly enl arged. Tiny fat-containing supraumbilical hernia. No hepatic masses. Mild bile duct dilatation is lik christiana due to the patient's postcholecystectomy state. The spleen is not identified. This could represen t autosplenectomy in a patient with known sickle cell disease. The pancreas and adrenal glands unrema rkable. There are 3 hypodense lesions within the left kidney with the largest in the upper pole measu ring 12 mm. These favor cysts. There is a duplicated left renal collecting system with the ureters ramon ining distally. Normal right kidney. No hydronephrosis. The main portal vein is patent. No retroperit alves lymphadenopathy. Normal caliber abdominal aorta. No pelvic free fluid. The bladder is unremarka ble. No bowel wall thickening or obstruction. Normal appendix. IMPRESSION: 1. No bowel wall thickening or obstruction. 2. No hydronephrosis. 3. Prior cholecystectomy. 4. Normal appendix. 5. The spleen is not identified. This could represent autosplenectomy in a patient with known sickle cell disease. 6. Additional findings as described above. ACT 112: Negative or not required by law. Electronically signed by: Brennan Corral M.D. 04/10/2022 5:32 PM
[2022-04-10] MEDS ORDERED: Patient's ALLERGY Info needs ENTERED SCH (17:45)
[2022-04-10 18:17] LABS: Adenovirus PCR Not Detected (NotDetected); Bordetella parapertussis PCR Not Detected (NotDetected); Bordetella pertussis PCR Not Detected (NotDetected); Chlamydia pneumoniae PCR Not Detected (NotDetected); Coronavirus 229E PCR Not Detected (NotDetected); Coronavirus CoV-2 (COVID19)PCR Not Detected (NotDetected); Coronavirus HKU1 PCR Not Detected (NotDetected); Coronavirus NL63 PCR Not Detected (NotDetected); Coronavirus OC43PCR Not Detected (NotDetected); Human Metapneumovirus PCR Not Detected (NotDetected); Influenza A PCR Not Detected (NotDetected); Influenza B PCR Not Detected (NotDetected); Mycoplasma pneumoniae PCR Not Detected (NotDetected); Parainfluenza Virus 1 PCR Not Detected (NotDetected); Parainfluenza Virus 2 PCR Not Detected (NotDetected); Parainfluenza Virus 3 PCR Not Detected (NotDetected); Parainfluenza Virus 4 PCR Not Detected (NotDetected); Respiratory Syncytial VirusPCR Not Detected (NotDetected); Rhinovirus/Enterovirus PCR Not Detected (NotDetected)
[2022-04-10] MEDS: KETOROLAC TROMETHAMINE 15 MG/ML VIAL IV SCH (18:53)
[2022-04-10] MEDS: cefTRIAXone SODIUM 2,000 MG in DEXTROSE 5% 50 ML IV SCH (18:54)
[2022-04-10] MEDS ORDERED: oxyCODONE HCL IR 5 MG TAB (IMMEDIATE RELEASE) PO STA (19:08)
[2022-04-10] MEDS: AZITHROMYCIN 500 MG in DEXTROSE 5% 250 ML IV SCH (20:01)
[2022-04-10] MEDS: ACETAMINOPHEN 500 MG TAB PO SCH (20:10)
[2022-04-10] MEDS: HYDROXYUREA 500 MG CAP PO SCH (21:38)
[2022-04-10] MEDS: SERTRALINE HCL 100 MG TABLET PO SCH (21:39)
[2022-04-10] MEDS: ARIPiprazole 10 MG TAB PO SCH (21:39)
[2022-04-10] MEDS: D5W AND 1/2NSS 1,000 ML IV SCH (22:14)
[2022-04-11] MEDS: oxyCODONE HCL IR 5 MG TAB (IMMEDIATE RELEASE) PO PRN ×3 (00:38→12:14)
[2022-04-11] MEDS: KETOROLAC TROMETHAMINE 15 MG/ML VIAL IV SCH ×2 (00:39→08:21)
[2022-04-11] MEDS: ACETAMINOPHEN 500 MG TAB PO SCH ×3 (04:04→21:49)
[2022-04-11] MEDS: D5W AND 1/2NSS 1,000 ML IV SCH (06:34)
[2022-04-11] MEDS: FOLIC ACID 1 MG TAB PO SCH (08:44)
[2022-04-11] MEDS: ENOXAPARIN INJ 40 MG/0.4 ML SYR SQ SCH (08:44)
[2022-04-11 10:01] LABS: Hematocrit (blood only) 26.7 % (40.1-51.0); Hemoglobin 9.4 g/dl (14.0-18.0); Mean Corpuscular Hemoglobin 38.7 pg (25.0-34.0); Mean Corpuscular Hgb Conc 35.2 g/dL (32.0-36.0); Mean Corpuscular Volume 109.9 fL (80.0-100.0); Nucleated RBC % (auto) 44.5 %; Platelet Count 271 K/uL (130-400); RDW Coefficient of Variation 19.2 % (11.5-14.5); RDW Standard Deviation 75.2 fL (36.4-46.3); Red Blood Count 2.43 M/uL (4.63-6.08); White Blood Count 8.77 K/ul (4.8-10.8)
[2022-04-11 10:23] LABS: BUN Creatinine Ratio 15.4 (10-20); Calcium 8.5 mg/dl (8.5-10.1); Creatinine Clr Calc Pharmacy 154.2 ml/min; Est GFR (Non-African American) 123.4 ml/min; Potassium 3.9 mmol/L (3.5-5.1)
--- NOTE | 2022-04-11 14:42 | Hospitalist Progress Note ---
Date of Service April 11, 2022 Assessment & Plan (1) Sickle cell crisis: Plan: continue to hydrate increase pain control Appreciate Hematology recs stop antibiotics with no evidence of infection cont other current therapies per home regimen. (2) Personality disorder: (3) Avascular necrosis of bone of shoulder: Plan: Chronic, may be contributing to current pain. Cont with pain management as above (4) Tobacco use disorder: Plan: Smoking cessation recommended. (5) DVT prophylaxis: Admission and Anticipated Discharge Date Admission Date: April 10, 2022 Subjective 36 yo M seen in follow-up of vaso-occlusive crisis in the setting of sickle cell disease Left chest and shoulder pain as well as right hip pain Today he reports that his chest pain is improved but his shoulder and right hip pain are still hurting The regimen that is songoing is not enough to control his pain The oxycodone was increased to 7.5mg q4h, the toradol to 30mg q8h Dilaudid 0.5mg IV q2h for breakthrough was given After speaking with hematology, this was increased to 1mg dilaudid q3h and 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 He has no evidence of infection at this time so will stop antibiotics. Review of Systems Review of Systems: All systems were reviewed and negative except as indicated on subjective above. Physical Exam Physical Exam: CONSTITUTIONAL: WNWD, vitals as above, generally well- appearing, NAD EYES: normal conjunctivae, no scleral icterus ENT: external ear and nose normal, MMM NECK: trachea midline RESPIRATORY: clear to auscultation bilaterally, no crackles, rales or wheezes, normal respiratory effort CARDIOVASCULAR: regular rate and rhythm, S1 and 2 heard without murmurs, gallops or rubs, no JVD, no peripheral edema, CHEST: inspection of chest was normal GASTROINTESTINAL: soft, nontender,ND, no guarding MUSCULOSKELETAL: strength 5/5 throughout, head is normocephalic and atraumatic SKIN: warm and dry NEUROLOGIC: CN 2-12 grossly intact, no sensory deficit, normal cognition, normal speech, no tremor PSYCHIATRIC: alert cooperative and oriented to person, place and time. Euthymic mood, makes good eye contact, language grossly intact, recent and gary te memory grossly intact. Results & Data Results & Data ([facility]) Vital Signs (Past 12 Hours) Vital Signs Pulse Resp BP BP Pulse Ox O2 Del Method 04/11/22 06:30 93 04/11/22 06:00 94 04/11/22 06:00 103/67 04/11/22 03:00 63 14 111/67 92 Room Air Laboratory Results Short CBC 04/11/22 Range/Units 09:43 WBC 8.77 (4.8-10.8) K/ul Hgb 9.4 L (14.0-18.0) g/dl Hct 26.7 L (40.1-51.0) % Plt Count 271 (130-400) K/uL BMP 04/11/22 09:43 Sodium 139 Potassium 3.9 Chloride 105 Carbon Dioxide 27 BUN 10 Creatinine 0.65 Glucose 148 H Calcium 8.5 Urine 04/10/22 Range/Units 14:28 Urine Color Yellow Urine Appearance Clear (Clear) Urine pH 7.0 (4.5-7.5) Ur Specific [place] 1.010 (1.000-1.030) Urine Protein Negative (Negative) Urine Glucose (UA) Negative (Negative) Medications Administered Current Inpatient Medications Acetaminophen (Acetaminophen 500 Mg Tab) 1,000 mg PO Q8H KEELEY Stop: 05/10/22 19:59 Last Admin: 04/11/22 12:05 Dose: 1,000 mg Aripiprazole (Aripiprazole 10 Mg Tab) 20 mg PO HS KEELEY Stop: 05/10/22 20:59 Last Admin: 04/10/22 21:39 Dose: 20 mg Enoxaparin Sodium (Enoxaparin Inj 40 Mg/0.4 Ml Syr) 40 mg SQ QAM KEELEY Stop: 05/11/22 08:59 Last Admin: 04/11/22 08:44 Dose: Not Given Folic Acid (Folic Acid 1 Mg Tab) 1 mg PO DAILY KEELEY Stop: 05/11/22 08:59 Last Admin: 04/11/22 08:44 Dose: 1 mg Hydroxyurea (Hydroxyurea 500 Mg Cap) 1,000 mg PO HS KEELEY Stop: 05/10/22 20:59 Last Admin: 04/10/22 21:38 Dose: 1,000 mg Ceftriaxone Sodium 2,000 mg/ (Dextrose) 70 mls @ 100 mls/hr IV Q24H KEELEY; Protocol Stop: 04/12/22 17:44 Last Infusion: 04/10/22 19:25 Dose: Infused Azithromycin 500 mg/ Dextrose 255 mls @ 127.5 mls/hr IV Q24H KEELEY Stop: 04/12/22 16:24 Last Infusion: 04/10/22 22:00 Dose: Infused Ketorolac Tromethamine (Ketorolac Tromethamine 15 Mg/Ml Vial) 15 mg IV Q8H KEELEY Stop: 04/15/22 16:29 Last Admin: 04/11/22 08:21 Dose: 15 mg Miscellaneous (Deferasirox- Order Awaiting Action) 1 each N/A QS KEELEY Stop: 05/11/22 00:00 Last Admin: 04/11/22 07:14 Dose: Not Given Oxycodone HCl (Oxycodone Hcl Ir 5 Mg Tab (Immediate Release)) 5 mg PO Q4H PRN PRN Reason: Pain Stop: 04/24/22 16:27 Last Admin: 04/11/22 12:14 Dose: 5 mg Sertraline HCl (Sertraline Hcl 100 Mg Tablet) 100 mg PO HS KEELEY Stop: 05/10/22 20:59 Last Admin: 04/10/22 21:39 Dose: 100 mg
--- NOTE | 2022-04-11 15:07 | Oncology Consultation ---
Date of Consultation April 11, 2022 Assessment & Plan (1) Sickle cell crisis: (2) Sickle cell anemia with pain: (3) Avascular necrosis of bone of shoulder: Plan Gentleman with history of hemoglobin SS sickle cell disease who presented with vaso-occlusive crisis. Recommend pain management and IV hydration. - Recommend IV hydration with normal saline 100 mL/h. Can discontinue after about 24 hours of treatment and encourage oral hydration thereafter to reduce risk of volume overload -Recommend adequate pain control. Can continue with hydromorphone 0.5 mg every 2 hours as needed. 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 Treat for possible UTI given positive leukocyte esterase in urine. - Continue hydroxyurea, folic acid and Jadenu Thank you for this consult. Hematology will continue following patient while in the hospital. Please feel free to call if have any further questions. History of Present Illness Reason for Consultation: Sickle cell vaso-occlusive crisis Attending Physician: Anisha Loja, History of Present Illness 36-year-old current inmate at [facility] who has a medical history significant for sickle cell hemoglobin SS disease, iron overload and avascular necrosis of bilateral hip joints. Patient presented to the ER admitted [facility] with complaints of left-sided chest pain, left flank pain and left hip pain which he states started on Sunday. Chest x-ray obtained on admission revealed no acute process and CT abdomen and pelvis also obtained on admission was also essentially unrevealing. Labs revealed stable hemoglobin of 9.5. Urinalysis revealed trace leukocyte esterase but was negative for bacteria. He was placed on broad-spectrum antibiotics as well as IV fluids He states that he is currently on hydroxyurea 1000 mg p.o. daily. He is also on Jadenu for iron overload and daily folic acid. States that his hemoglobin usually ranges between 9 and 10. Endorses multiple sickle cell crisis per year but has not required blood transfusion in more than 2 years. He denies fever, chills, dysuria, abdominal pain or any other symptoms. Allergies Allergy/AdvReac Type Severity Reaction Status Date / Time No Known Allergies Allergy Verified 04/10/22 17:37 Home Medications Medication Instructions Recorded Confirmed Type aripiprazole 20 mg tablet 20 mg PO HS 10/18/21 04/10/22 History deferasirox 3 tab PO DAILY 10/18/21 04/10/22 History folic acid 1 mg PO DAILY 10/18/21 04/10/22 History hydroxyurea 500 mg capsule 1,000 mg PO HS 10/18/21 04/10/22 History sertraline 100 mg tablet 100 mg PO HS 04/10/22 04/10/22 History Patient History Medical History Anxiety Personality disorder Sickle cell anemia Surgical History Hx of cholecystectomy Family History Father Sickle cell anemia Mother Sickle cell anemia Social History Smoking Status: Current some day smoker Tobacco Type: Cigarettes Cigarettes Per Day: 4; Second Hand Exposure: No; Do You Dip or Chew Tobacco: No; Tobacco Cessation Education Requested by Patient: No Hx Alcohol Use: No Hx Substance Use: Yes Non-Prescribed Medications: Marijuana Preferred Language: [place] Citizen Communication Ability: Effective 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 Beliefs That Will Affect Care: None marital status: Unknown Current Living Situation: Other Current Living Situation Comment: [place] Feels Safe at Home: Yes Safety Concerns: Feels Safe At This Time Assistive Devices: None Review of Systems Review of Systems: All systems reviewed & are unremarkable except as noted in Subjective Physical Exam Constitutional: WD/WN, vitals as above Eyes: PERRL, conjunctivae normal, anicteric sclerae Respiratory: normal respiratory effort, lungs clear to auscultation Cardiovascular: RRR, no murmur, no edema Results & Data ([facility]) Vital Signs (Past 12 Hours) Vital Signs BP Pulse Ox 04/11/22 06:30 93 04/11/22 06:00 94 04/11/22 06:00 103/67
[2022-04-11] MEDS ORDERED: POLYETHYLENE (MIRALAX) 17 GM PACK PO PRN (15:33)
[2022-04-11] MEDS: HYDROmorphone INJ 0.5 MG/0.5 ML SYR IV PRN ×2 (16:20→21:13)
[2022-04-11] MEDS: cefTRIAXone SODIUM 2,000 MG in DEXTROSE 5% 50 ML IV SCH (16:22)
[2022-04-11] MEDS: KETOROLAC 30 MG/ML VIAL IV SCH ×2 (16:57→22:48)
[2022-04-11] MEDS: AZITHROMYCIN 500 MG in DEXTROSE 5% 250 ML IV SCH (16:58)
[2022-04-11] MEDS: ARIPiprazole 10 MG TAB PO SCH (21:49)
[2022-04-11] MEDS: SERTRALINE HCL 100 MG TABLET PO SCH (21:50)
[2022-04-11] MEDS: HYDROXYUREA 500 MG CAP PO SCH (21:50)
[2022-04-11] MEDS: SODIUM CHLORIDE 0.9% 1000ML 1,000 ML IV SCH (22:48)
[2022-04-12] MEDS: ACETAMINOPHEN 500 MG TAB PO SCH ×3 (05:16→20:28)
[2022-04-12] MEDS: oxyCODONE HCL IR 5 MG TAB (IMMEDIATE RELEASE) PO PRN ×2 (05:44→12:31)
[2022-04-12] MEDS: KETOROLAC 30 MG/ML VIAL IV SCH ×3 (07:58→23:28)
[2022-04-12] MEDS: SODIUM CHLORIDE 0.9% 1000ML 1,000 ML IV SCH ×2 (08:57→18:30)
[2022-04-12] MEDS: HYDROmorphone INJ 1 MG/ML SYRINGE IV PRN ×4 (09:06→22:04)
[2022-04-12] MEDS: ENOXAPARIN INJ 40 MG/0.4 ML SYR SQ SCH (09:08)
[2022-04-12] MEDS: DOCUSATE SODIUM/SENNA 50/8.6MG TAB PO SCH (09:08)
[2022-04-12] MEDS: FOLIC ACID 1 MG TAB PO SCH (09:08)
--- NOTE | 2022-04-12 12:11 | Hospitalist Progress Note ---
Date of Service April 12, 2022 Assessment & Plan (1) Sickle cell crisis: Plan: still having 8/10 pain- L shoulder and hip continue IV NSS Toradol q8h PRN Dilaudid continue Hydroxyurea Appreciate Hematology recs stop antibiotics with no evidence of infection cont other current therapies per home regimen. (2) Personality disorder: (3) Avascular necrosis of bone of shoulder: Plan: Chronic, may be contributing to current pain. Cont with pain management as above (4) Tobacco use disorder: Plan: Smoking cessation recommended. (5) DVT prophylaxis: Plan [facility] Admission and Anticipated Discharge Date Admission Date: April 10, 2022 Subjective ff up for sickle cell crisis, etc seen resting in bed, comfortable states he still has L shoulder and hip pain 8/10 no chest pain, dyspnea, palpitations, dizziness no fever/chills, headache, dizziness, abdominal pain, problems with urination or BM no other symptoms Review of Systems Review of Systems: all noted and negative except for above Physical Exam Physical Exam: General- oriented x 3, not in distress, speaks in sentences with no effort or accessory muscle use Eyes- anicteric Neck- no JVD Lungs- clear breath sounds bilaterally, no rales/wheezes Heart- normal rate, regular rhythm; no murmurs Abdomen- normal bowel sounds, nondistended, soft, nontender Extremities- no pretibial edema, no calf tenderness Neuro- alert, oriented x 3; no gross focal neurologic deficits Skin- warm & dry Results & Data Results & Data ([facility]) Vital Signs (Past 12 Hours) Vital Signs Temp Pulse Pulse Resp BP BP Pulse Ox 04/12/22 11:39 36.7 C 74 20 123/81 95 04/12/22 08:52 36.8 C 75 18 122/68 94 04/12/22 09:44 66 04/12/22 07:28 36.6 C 73 20 108/69 93 04/12/22 04:29 36.9 C 79 20 108/72 92 O2 Del Method 04/12/22 11:39 Room Air 04/12/22 08:52 Room Air 04/12/22 09:44 04/12/22 07:28 Room Air 04/12/22 04:29 Room Air all noted and reviewed including below
[2022-04-12] MEDS: HYDROXYUREA 500 MG CAP PO SCH (20:25)
[2022-04-12] MEDS: SERTRALINE HCL 100 MG TABLET PO SCH (20:27)
[2022-04-12] MEDS: ARIPiprazole 10 MG TAB PO SCH (20:27)
[2022-04-13] MEDS: HYDROmorphone INJ 1 MG/ML SYRINGE IV PRN ×6 (03:05→22:23)
[2022-04-13] MEDS: ACETAMINOPHEN 500 MG TAB PO SCH ×3 (03:18→19:21)
[2022-04-13] MEDS: SODIUM CHLORIDE 0.9% 1000ML 1,000 ML IV SCH ×3 (03:18→23:35)
[2022-04-13] MEDS: ENOXAPARIN INJ 40 MG/0.4 ML SYR SQ SCH (08:10)
[2022-04-13] MEDS: FOLIC ACID 1 MG TAB PO SCH (08:13)
[2022-04-13] MEDS: KETOROLAC 30 MG/ML VIAL IV SCH ×3 (08:13→23:36)
[2022-04-13] MEDS: DOCUSATE SODIUM/SENNA 50/8.6MG TAB PO SCH (08:18)
[2022-04-13 10:56] LABS: Hematocrit (blood only) 24.9 % (40.1-51.0); Hemoglobin 8.6 g/dl (14.0-18.0); Mean Corpuscular Hemoglobin 39.1 pg (25.0-34.0); Mean Corpuscular Hgb Conc 34.5 g/dL (32.0-36.0); Mean Corpuscular Volume 113.2 fL (80.0-100.0); Mean Platelet Volume 10.3 fL (9.4-12.4); Nucleated RBC # (auto) 2.84 K/uL (0-0); Nucleated RBC % (auto) 33.7 %; Platelet Count 236 K/uL (130-400); RDW Coefficient of Variation 19.1 % (11.5-14.5); RDW Standard Deviation 75.7 fL (36.4-46.3); White Blood Count 8.43 K/ul (4.8-10.8)
[2022-04-13 11:21] LABS: BUN Creatinine Ratio 11.4 (10-20); Calcium 8.4 mg/dl (8.5-10.1); Creatinine Clr Calc Pharmacy 129.1 ml/min; Est GFR (African American) 138.8 ml/min; Est GFR (Non-African American) 119.7 ml/min
[2022-04-13 11:34] LABS: Basophils # (auto) 0.06 K/uL (0-0.2); Basophils % (auto) 0.7 %; Eosinophils # (auto) 0.67 K/uL (0-0.50); Eosinophils % (auto) 7.9 %; Immature Granulocytes # (auto) 0.13 K/uL (0.00-0.02); Immature Granulocytes % (auto) 1.5 %; Lymphocytes # (auto) 2.46 K/uL (1.2-3.4); Lymphocytes % (auto) 29.2 %; Monocytes # (auto) 0.65 K/uL (0.24-0.82); Monocytes % (auto) 7.7 %; Neutrophils # (auto) 4.46 K/uL (1.4-6.5); Polychromasia 2+; Sickle Cells 1+; Target Cells 2+
[2022-04-13] MEDS ORDERED: MAGNESIUM HYDROXIDE SUSP 30 ML UDC PO ONE (16:54)
[2022-04-13] MEDS ORDERED: LACTULOSE SYRUP 10 GM/15 ML BTL 960 ML PO PRN (16:54)
--- NOTE | 2022-04-13 16:58 | Hospitalist Progress Note ---
Date of Service April 13, 2022 Assessment & Plan (1) Sickle cell crisis: Plan: Pain on the left shoulder and hip 7 out of 10 today a little better compared to yesterday per patient continue IV NSS Toradol q8h PRN Dilaudid continue Hydroxyurea Appreciate Hematology recs stop antibiotics with no evidence of infection cont other current therapies per home regimen. Constipation Last BM Sunday We will add milk of magnesium 1 dose now, as needed lactulose (2) Personality disorder: (3) Avascular necrosis of bone of shoulder: Plan: Chronic, may be contributing to current pain. Cont with pain management as above (4) Tobacco use disorder: Plan: Smoking cessation recommended. (5) DVT prophylaxis: Plan [facility] to [facility] when medically stable Admission and Anticipated Discharge Date Admission Date: April 10, 2022 Subjective Follow-up for sickle cell crisis, etc. Seen resting in bed, not in distress Still having significant left shoulder and hip pain, 7 out of 10 today Little better compared to yesterday No shortness of breath, chest pain No other symptoms Review of Systems Review of Systems: all noted and negative except for above Physical Exam Physical Exam: General- oriented x 3, not in distress, speaks in sentences with no effort or accessory muscle use Eyes- anicteric Neck- no JVD Lungs- clear breath sounds bilaterally, no wheezing, no crackles Heart- normal rate, regular rhythm; no murmurs Abdomen- normal bowel sounds, nondistended, soft, no tenderness Extremities- no pretibial edema, no calf tenderness Neuro- alert, oriented x 3; no gross focal neurologic deficits Skin- warm & dry Results & Data Results & Data ([facility]) Vital Signs (Past 12 Hours) Vital Signs Temp Pulse Pulse Resp BP Pulse Ox O2 Del Method 04/13/22 15:54 75 04/13/22 15:29 36.7 C 88 18 132/83 96 Room Air 04/13/22 11:35 36.7 C 77 18 128/77 95 Room Air 04/13/22 07:33 36.5 C 65 18 133/81 91 Room Air 04/13/22 07:27 63 all noted and reviewed including below
[2022-04-13] MEDS: ARIPiprazole 10 MG TAB PO SCH (21:09)
[2022-04-13] MEDS: SERTRALINE HCL 100 MG TABLET PO SCH (21:09)
[2022-04-13] MEDS: HYDROXYUREA 500 MG CAP PO SCH (21:09)
[2022-04-14] MEDS: HYDROmorphone INJ 1 MG/ML SYRINGE IV PRN ×5 (02:47→23:52)
[2022-04-14] MEDS: ACETAMINOPHEN 500 MG TAB PO SCH ×3 (04:07→20:55)
[2022-04-14 07:23] LABS: Albumin Level 3.8 gm/dl (3.4-5.0); BUN Creatinine Ratio 20.3 (10-20); Bilirubin Direct 1.1 mg/dl (0-0.2); Bilirubin,Total 2.7 mg/dl (0.2-1.0); Calcium 8.6 mg/dl (8.5-10.1); Creatinine Clr Calc Pharmacy 141.2 ml/min; Est GFR (Non-African American) 124.2 ml/min; Potassium 3.9 mmol/L (3.5-5.1); Total Protein 6.5 gm/dl (6.0-8.3)
[2022-04-14 07:26] LABS: Hematocrit (blood only) 23.8 % (40.1-51.0); Hemoglobin 8.3 g/dl (14.0-18.0); Mean Corpuscular Hemoglobin 39.2 pg (25.0-34.0); Mean Corpuscular Hgb Conc 34.9 g/dL (32.0-36.0); Mean Corpuscular Volume 112.3 fL (80.0-100.0); Nucleated RBC # (auto) 2.98 K/uL (0-0); Nucleated RBC % (auto) 40.1 %; Platelet Count 239 K/uL (130-400); RDW Coefficient of Variation 18.8 % (11.5-14.5); RDW Standard Deviation 71.7 fL (36.4-46.3); Red Blood Count 2.12 M/uL (4.63-6.08); White Blood Count 7.44 K/ul (4.8-10.8)
[2022-04-14 07:56] LABS: Anisocytosis Present; Basophils # (auto) 0.06 K/uL (0-0.2); Basophils % (auto) 0.8 %; Eosinophils # (auto) 0.67 K/uL (0-0.50); Howell-Jolly Bodies 1+; Immature Granulocytes # (auto) 0.12 K/uL (0.00-0.02); Immature Granulocytes % (auto) 1.6 %; Lymphocytes # (auto) 2.72 K/uL (1.2-3.4); Lymphocytes % (auto) 36.6 %; Monocytes % (auto) 9.4 %; Neutrophils # (auto) 3.17 K/uL (1.4-6.5); Neutrophils % (auto) 42.6 %; Polychromasia 2+; Reticulocyte % 18.6 % (0.5-2.0); Target Cells 2+
[2022-04-14] MEDS: DOCUSATE SODIUM/SENNA 50/8.6MG TAB PO SCH (08:45)
[2022-04-14] MEDS: ENOXAPARIN INJ 40 MG/0.4 ML SYR SQ SCH (08:45)
[2022-04-14] MEDS: FOLIC ACID 1 MG TAB PO SCH (08:45)
[2022-04-14] MEDS: KETOROLAC 30 MG/ML VIAL IV SCH ×2 (08:45→14:45)
[2022-04-14] MEDS: SODIUM CHLORIDE 0.9% 1000ML 1,000 ML IV SCH ×2 (08:46→17:37)
--- NOTE | 2022-04-14 12:17 | Pain Management Consultation ---
Date of Consultation April 14, 2022 Assessment & Plan (1) Sickle cell crisis: (2) Sickle cell anemia with pain: Plan 1. I have had a discussion with the patient to try using the PO Oxycodone rather than use the IV Dilaudid. I will increase the Oxycodone dose from 7.5 to 10mg to see if it may provide some pain relief. If Oxycodone at 10mg is effective then he can wean off of IV Dilaudid use. 2. Nothing interventional to offer the patient. Thank you for the consultation. Please contact with any questions or concerns. History of Present Illness Reason for Consultation: pain Attending Physician: Gabino Medina MD History of Present Illness Mr. Quintanilla is a 36 year old prisoner with a significant history of sickle cell disease with prior vaso-occlusive crisis requiring admission 6 months ago. He has been admitted for another vaso-occlusive crisis. Pain is located in the left shoulder and left hip. There is a constant sharp stabbing pain. No aggravating symptoms. He has tried taking Oxycodone 7.5 mg a few days ago and states that it was not effective towards diminishing his pain. He has been receiving IV Dilaudid 1mg (used 7mg over the past 24 hours) which does provide adequate pain relief. Patient denies any side effects to the medication. Case discussed with Dr. Radha Matthews Allergies Allergy/AdvReac Type Severity Reaction Status Date / Time No Known Allergies Allergy Verified 04/10/22 17:37 Home Medications Medication Instructions Recorded Confirmed Type aripiprazole 20 mg tablet 20 mg PO HS 10/18/21 04/10/22 History deferasirox 3 tab PO DAILY 10/18/21 04/10/22 History folic acid 1 mg PO DAILY 10/18/21 04/10/22 History hydroxyurea 500 mg capsule 1,000 mg PO HS 10/18/21 04/10/22 History sertraline 100 mg tablet 100 mg PO HS 04/10/22 04/10/22 History Patient History Medical History Anxiety Personality disorder Sickle cell anemia Surgical History Hx of cholecystectomy Family History Father Sickle cell anemia Mother Sickle cell anemia Social History Smoking Status: Current some day smoker Tobacco Type: Cigarettes Cigarettes Per Day: 4; Second Hand Exposure: No; Do You Dip or Chew Tobacco: No; Tobacco Cessation Education Requested by Patient: No Hx Alcohol Use: No Hx Substance Use: Yes Non-Prescribed Medications: Marijuana Preferred Language: Vietnamese Communication Ability: Effective Furniture Packer Required: No Beliefs That Will Affect Care: None marital status: Unknown Current Living Situation: Other Current Living Situation Comment: [place] Feels Safe at Home: Yes Safety Concerns: Feels Safe At This Time Assistive Devices: None Physical Exam Physical Exam: GENERAL: This is a 36 year old male prisoner that is accompanied by two guards. Patient does not appear in any acute distress. He is restrained to hospital bed. HEAD/FACE: Normocephalic and atraumatic. EYES: No drainage or conjunctival injection. ENT: Nose without bleeding or discharge. Oral mucosa moist. NECK: Full ROM without apparent pain. No swelling or masses noted. RESPIRATORY: Patient with unlabored breathing. No signs of respiratory distress. CHEST/AXILLA: Chest movement symmetrical. No deformities noted. ABDOMEN/GI: No distension BACK: Moves without difficulty SKIN: [place], warm and dry. No rash noted. MS/EXTREMITY: No swelling, no deformities. Moving extremities appropriately. NEURO: Alert and appears oriented. Speech is fluent. Cranial Nerves are grossly intact. PSYCH: Alert, pleasant, affect is calm
[2022-04-14] MEDS: oxyCODONE HCL IR 5 MG TAB (IMMEDIATE RELEASE) PO PRN ×2 (13:49→20:55)
--- NOTE | 2022-04-14 17:30 | Hospitalist Progress Note ---
Date of Service April 14, 2022 Assessment & Plan (1) Sickle cell crisis: Plan: Pain on the left shoulder and hip 7 out of 10 today a little better compared to yesterday per patient continue IV NSS Toradol q8h PRN Dilaudid As needed oxycodone continue Hydroxyurea Pain management service consulted, oxycodone increased Appreciate Hematology recs stop antibiotics with no evidence of infection cont other current therapies per home regimen. Constipation Last BM Sunday We will add milk of magnesium 1 dose now, as needed lactulose (2) Personality disorder: (3) Avascular necrosis of bone of shoulder: Plan: Chronic, may be contributing to current pain. Cont with pain management as above (4) Tobacco use disorder: Plan: Smoking cessation recommended. (5) DVT prophylaxis: Plan anticipate return to [facility] when medically stable Admission and Anticipated Discharge Date Admission Date: April 10, 2022 Subjective Follow-up for sickle cell crisis, etc. Seen resting in bed, comfortable Not in distress Reports he is still having left shoulder and hip pain, but 6 out of 10 today Denies chest pain, shortness of breath, palpitations, dizziness No fevers or chills No other symptoms Review of Systems Review of Systems: all noted and negative except for above Physical Exam Physical Exam: General- oriented x 3, not in distress, speaks in sentences with no effort or accessory muscle use Eyes- anicteric Neck- no JVD Lungs- clear bs bilaterally, no crackles or wheezing Heart- normal rate, regular rhythm; no murmurs Abdomen- normal bowel sounds, nondistended, soft, nontender Extremities- no pretibial edema, no calf tenderness Neuro- alert, oriented x 3; no gross focal neurologic deficits Skin- warm & dry Results & Data Results & [facility] ([facility]) Vital Signs (Past 12 Hours) Vital Signs Temp Pulse Pulse Resp BP BP Pulse Ox 04/14/22 14:13 65 04/14/22 15:17 36.6 C 74 20 123/76 96 04/14/22 11:17 36.6 C 76 20 122/72 95 04/14/22 07:28 36.4 C L 70 20 118/76 96 04/14/22 07:19 57 L O2 Del Method 04/14/22 14:13 04/14/22 15:17 Room Air 04/14/22 11:17 Room Air 04/14/22 07:28 Room Air 04/14/22 07:19 all noted and reviewed including below
[2022-04-14] MEDS ORDERED: bisacodyL 10 MG SUPP PR STA (17:59)
[2022-04-14] MEDS ORDERED: POLYETHYLENE (MIRALAX) 17 GM PACK PO ONE (18:00)
[2022-04-14] MEDS: ARIPiprazole 10 MG TAB PO SCH (20:56)
[2022-04-14] MEDS: SERTRALINE HCL 100 MG TABLET PO SCH (20:56)
[2022-04-14] MEDS: HYDROXYUREA 500 MG CAP PO SCH (20:56)
[2022-04-15] MEDS: ACETAMINOPHEN 500 MG TAB PO SCH ×3 (03:36→19:26)
[2022-04-15] MEDS: oxyCODONE HCL IR 5 MG TAB (IMMEDIATE RELEASE) PO PRN ×4 (03:36→19:25)
[2022-04-15] MEDS: SODIUM CHLORIDE 0.9% 1000ML 1,000 ML IV SCH (03:37)
[2022-04-15] MEDS: FOLIC ACID 1 MG TAB PO SCH (08:49)
[2022-04-15] MEDS: POLYETHYLENE (MIRALAX) 17 GM PACK PO SCH (08:49)
[2022-04-15] MEDS: ENOXAPARIN INJ 40 MG/0.4 ML SYR SQ SCH (08:49)
[2022-04-15] MEDS: DOCUSATE SODIUM/SENNA 50/8.6MG TAB PO SCH (08:50)
[2022-04-15] MEDS: HYDROmorphone INJ 1 MG/ML SYRINGE IV PRN ×3 (08:52→21:12)
--- NOTE | 2022-04-15 17:40 | Hospitalist Progress Note ---
Date of Service April 15, 2022 Assessment & Plan (1) Sickle cell crisis: Plan: Improving gradually Pain level 5 out of 10 today CBC, with reticulocyte noted Bilirubin also noted DC IV fluids PRN Dilaudid As needed oxycodone continue Hydroxyurea Pain management service consulted, oxycodone increased Appreciate Hematology recs stop antibiotics with no evidence of infection cont other current therapies per home regimen. Constipation Resolved Continue bowel regimen (2) Personality disorder: (3) Avascular necrosis of bone of shoulder: Plan: Chronic, may be contributing to current pain. Cont with pain management as above (4) Tobacco use disorder: Plan: Smoking cessation recommended. (5) DVT prophylaxis: Plan anticipate return to [facility] when medically stable Admission and Anticipated Discharge Date Admission Date: April 10, 2022 Subjective Follow-up for sickle cell crisis, etc. Seen resting in bed, comfortable, not distressed States pain is gradually improving, now 5/10 Still on his left shoulder, left hip Positive large BM yesterday no chest pain, dyspnea, palpitations, dizziness No other new symptoms Review of Systems Review of Systems: all noted and negative except for above Physical Exam Physical Exam: General- oriented x 3, not in distress, speaks in sentences with no effort or accessory muscle use Eyes- anicteric Neck- no JVD Lungs- clear BS bilaterally, no rales/wheezes Heart- normal rate, regular rhythm; no murmurs Abdomen- normal bowel sounds, nondistended, soft, no tenderness Extremities- no pretibial edema, no calf tenderness Neuro- alert, oriented x 3; no gross focal neurologic deficits Skin- warm & dry Results & Data Results & Data ([facility]) Vital Signs (Past 12 Hours) Vital Signs Temp Pulse Pulse Resp BP Pulse Ox O2 Del Method 04/15/22 16:00 37 C 85 18 124/73 91 Room Air 04/15/22 15:32 91 H 04/15/22 11:44 36.9 C 81 18 121/80 92 Room Air 04/15/22 08:04 36.6 C 69 18 105/61 91 Room Air 04/15/22 07:36 Room Air 04/15/22 07:09 71 all noted and reviewed including below
[2022-04-15] MEDS: ARIPiprazole 10 MG TAB PO SCH (21:07)
[2022-04-15] MEDS: HYDROXYUREA 500 MG CAP PO SCH (21:07)
[2022-04-15] MEDS: SERTRALINE HCL 100 MG TABLET PO SCH (21:07)
[2022-04-16] MEDS: oxyCODONE HCL IR 5 MG TAB (IMMEDIATE RELEASE) PO PRN ×2 (03:23→10:40)
[2022-04-16] MEDS: HYDROmorphone INJ 1 MG/ML SYRINGE IV PRN ×2 (06:07→13:22)
[2022-04-16] MEDS: ACETAMINOPHEN 500 MG TAB PO SCH ×2 (06:07→11:45)
[2022-04-16] MEDS: DOCUSATE SODIUM/SENNA 50/8.6MG TAB PO SCH (06:56)
[2022-04-16] MEDS: ENOXAPARIN INJ 40 MG/0.4 ML SYR SQ SCH (06:56)
[2022-04-16] MEDS: POLYETHYLENE (MIRALAX) 17 GM PACK PO SCH (06:57)
[2022-04-16] MEDS: FOLIC ACID 1 MG TAB PO SCH (07:17)
--- NOTE | 2022-04-16 13:41 | Hospitalist Progress Note ---
Date of Service April 16, 2022 Assessment & Plan (1) Sickle cell crisis: Plan: pain improved gradually Hg stable ~8 Bilirubin also stable ~2s infection work up negative, empiric antibiotics discontinued given PRN IV Dilaudid, Oxycodone po requiring less IV Dilaudid Mushroom Press Operator Dr. Cisneros and pain management service consulted discussed with Dr. Cisneros, cleared for discharge today recommendations: continue Oxycodone 10mg PO q4-6hr PRN mod-severe pain Senokot S daily ff up with Mushroom Press Operator in 1-2 weeks continue Hydroxyurea Constipation Resolved Continue bowel regimen (2) Personality disorder: (3) Avascular necrosis of bone of shoulder: Plan: Chronic, may be contributing to current pain. Cont with pain management as above (4) Tobacco use disorder: Plan: Smoking cessation recommended. (5) DVT prophylaxis: Plan discussed case with [facility] Admission and Anticipated Discharge Date Admission Date: April 10, 2022 Subjective ff up for sickle cell crisis, etc seen resting in bed, sitting up comfortable,not in distress states his pain continues to improve- left shoulder pain 5/10 when worst no other pain no chest pain, dyspnea, palpitations, dizziness no abdominal pain, nausea/vomiting no fever/chills no other symptoms states he is ok for discharge back to correctional facility today no other symptoms Review of Systems Review of Systems: all noted and negative except for above Physical Exam Physical Exam: General- oriented x 3, not in distress, speaks in sentences with no effort or accessory muscle use Eyes- anicteric Neck- no JVD Lungs- clear breath sounds bilaterally, no crackles/wheezing Heart- normal rate, regular rhythm; no murmurs Abdomen- normal bowel sounds, nondistended, soft, nontender Extremities- no pretibial edema, no calf tenderness R shoulder- no edema/warmth/tenderness full ROM Neuro- alert, oriented x 3; no gross focal neurologic deficits Skin- warm & dry Results & Data Results & Data ([facility]) Vital Signs (Past 12 Hours) Vital Signs Temp Pulse Pulse Resp BP BP Pulse Ox 04/16/22 12:16 36.8 C 93 H 16 115/72 90 04/16/22 08:12 79 04/16/22 07:46 36.8 C 76 16 97/57 L 90 04/16/22 07:37 12/04/22 03:33 36.8 C 84 16 118/73 92 O2 Del Method 04/16/22 12:16 Room Air 04/16/22 08:12 04/16/22 07:46 Room Air 04/16/22 07:37 Room Air 04/16/22 03:33 Room Air all noted and reviewed including below
--- NOTE | 2022-04-16 13:42 | Discharge Summary ---
Discharge Summary Date of Service April 16, 2022 Notes For Next Care Provider follow up with Phlebotomy Support Tech in 1-2 weeks Medication Changes From Visit Oxycodone 10mg po q4-6h PRN for pain Senokot S daily Admission HPI Per Admitting Provider This is a 36 y/o male with a history of sickle cell disease with a prior vaso- occulsive crisis in October requiring hospitalization and history of avascular necrosis of several joints who presented to the ED today from [facility] with left sided pain thought secondary to sickle cell crisis. Pt reports that the pain started in his left flank yesterday afternoon and is now also present in his left arm and left leg. It feels similar to prior episodes of sickle cell crisis. He denies chest pain, dyspnea, ALVAR[place]O, dizziness, fevers, chills, N/V/D, dysuria. He has had some relief of the pain with the medications in the ED but it doesn't last. He reports being more thirsty than usual since yesterday regardless of how much water he tried to drink. He is unsure how much water he drinks in an average day. Pt was diagnosed with sickle cell when he was 2-3 yrs old. He follows with hematology while at [facility] and per the last note, has been stable. His baseline Hgb appears to be around 9.5. Admission Exam Per Admitting Provider Constitutional: well developed and well nourished; no acute distress Eyes: + anicteric sclerae Neck: trachea midline Respiratory: no respiratory distress and no labored breathing Auscultation: lungs clear to auscultation bilaterally; no rales, no rhonchi and no wheezes Cardiovascular: Rate/Rhythm: regular rate and regular rhythm Heart Sounds: no murmur Vessels: posterior tibial pulses present and radial pulses present Extremities: no edema Gastrointestinal (Abdomen): Inspection/Auscultation: normal bowel sounds; abdomen not distended Percussion/Palpation: + abdomen tender (left lateral UQ/flank with mild fullness) and abdomen soft Musculoskeletal: Head/Neck/Chest: normocephalic, head atraumatic and neck supple Neurologic: moves all extremities; no focal motor deficits and not confused Psychiatric: A+Ox3, euthymic affect Principal Dx & Hospital Course #1 = Principal Diagnosis (1) Sickle cell crisis: pain improved gradually Hg stable ~8 Bilirubin also stable ~2s infection work up negative, empiric antibiotics discontinued given PRN IV Dilaudid, Oxycodone po requiring less IV Dilaudid Phlebotomy Support Tech Dr. Cisneros and pain management service consulted discussed with Dr. Cisneros, cleared for discharge today recommendations: continue Oxycodone 10mg PO q4-6hr PRN mod-severe pain Senokot S daily ff up with Phlebotomy Support Tech in 1-2 weeks continue Hydroxyurea Constipation Resolved Continue bowel regimen (2) Personality disorder: (3) Avascular necrosis of bone of shoulder: Chronic, may be contributing to current pain. Cont with pain management as above (4) Tobacco use disorder: Smoking cessation recommended. (5) DVT prophylaxis: Plan discussed case with [facility] Discharge Exam General- oriented x 3, not in distress, speaks in sentences with no effort or accessory muscle use Eyes- anicteric Neck- no JVD Lungs- clear breath sounds bilaterally, no crackles/wheezing Heart- normal rate, regular rhythm; no murmurs Abdomen- normal bowel sounds, nondistended, soft, nontender Extremities- no pretibial edema, no calf tenderness R shoulder- no edema/warmth/tenderness full ROM Neuro- alert, oriented x 3; no gross focal neurologic deficits Skin- warm & dry Updated Medication List Medication Instructions Recorded Confirmed Type aripiprazole 20 mg tablet 20 mg PO HS 10/18/21 04/10/22 History deferasirox 3 tab PO DAILY 10/18/21 04/10/22 History folic acid 1 mg PO DAILY 10/18/21 04/10/22 History hydroxyurea 500 mg capsule 1,000 mg PO HS 10/18/21 04/10/22 History sertraline 100 mg tablet 100 mg PO HS 04/10/22 04/10/22 History oxycodone 5 mg tablet 10 mg PO Q4H PRN MODERATE TO 04/16/22 Rx SEVERE PAIN 5 days #14 tabs sennosides 8.6 mg-docusate sodium 1 tab PO QAM 14 days #14 tabs 04/16/22 Rx 50 mg tablet (Senokot-S) Hospital Stay Data Consultations 04/10/22 14:56 ED Decision to Admit Stat 04/10/22 16:22 Consult Hematology Routine 04/14/22 09:32 Consult Pain Management Routine Diagnostic Imagining Performed XR chest 1V portable HISTORY: 36 years-old Male lateral CP acute chest pain in a patient with history of sickle cell disease COMPARISON: Chest radiograph 10/18/2021 TECHNIQUE: AP view of the chest FINDINGS: Cardiac silhouette is enlarged. No pneumothorax, pleural effusion, airspace consolidation or overt pulmonary edema. There is diffuse sclerosis of the osseous structures with avascular necrosis of the humeral heads. 8 shaped vertebral bodies. IMPRESSION: 1. No acute processes of the chest. 2. Skeletal findings compatible with the patient's clinical history of sickle cell disease with avascular necrosis of the humeral heads. ACT 112: Negative or not required by law. The above report was generated using voice recognition software. It may contain grammatical, syntax or spelling errors. Electronically signed by: Roge Peña M.D. 04/10/2022 12:22 PM ABDOMEN AND PELVIS CT WITH IV CONTRAST CT DOSE: 498.91 mGycm HISTORY: Left upper quadrant pain, sickle cell crisis - eval for infarct TECHNIQUE: Multiaxial CT images of the abdomen and pelvis were performed following the use of intravenous contrast. A dose lowering technique was utilized adhering to the principles of ALARA. COMPARISON STUDY: None. FINDINGS: Mild dependent changes seen at the lung bases. No pneumoperitoneum. No pneumatosis. Diffuse sclerosis throughout the visualized osseous structures. There are subtle H shaped vertebral bodies. This likely corresponds to the patient's known history of sickle cell disease. Probable avascular necrosis of the bilateral femoral heads without evidence for articular collapse. The heart is mildly enlarged. Tiny fat-containing supraumbilical hernia. No hepatic masses. Mild bile duct dilatation is likely due to the patient's postcholecystectomy state. The spleen is not identified. This could represent autosplenectomy in a patient with known sickle cell disease. The pancreas and adrenal glands unremarkable. There are 3 hypodense lesions within the left kidney with the largest in the upper pole measuring 12 mm. These favor cysts. 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 Normal right kidney. No hydronephrosis. The main portal vein is patent. No retroperitoneal lymphadenopathy. Normal caliber abdominal aorta. No pelvic free fluid. The bladder is unremarkable. No bowel wall thickening or obstruction. Normal appendix. IMPRESSION: 1. No bowel wall thickening or obstruction. 2. No hydronephrosis. 3. Prior cholecystectomy. 4. Normal appendix. 5. The spleen is not identified. This could represent autosplenectomy in a patient with known sickle cell disease. 6. Additional findings as described above. ACT 112: Negative or not required by law. Electronically signed by: Brennan Corral M.D. 04/10/2022 5:32 PM Dictated:04/10/221724 Transcribed: 04/10/221724 Pending Results Patient Have Any Pending Studies at Discharge: No Discharge Instructions Given to Patient (Per Discharging Provider) PLEASE REFER TO YOUR NEW MEDICATION LIST AND FOLLOW INSTRUCTIONS CAREFULLY. YOUR NEW MEDICATIONS INCLUDE: OXYCODONE- for moderate to severe pain SENOKOT/S- to prevent constipation PLEASE CALL YOUR PRIMARY CARE PHYSICIAN OR RETURN TO THE ER IF WITH WORSENING OF SYMPTOMS, INCLUDING increasing pain, chest pain, shortness of breath, fever/chills, constipation, etc FOLLOW UP WITH PRIMARY CARE PHYSICIAN IN 2-3 DAYS. FOLLOW UP WITH CUT OFF SAW SET UP OPERATOR IN 1-2 WEEKS. Total Time Total Time Spent Total Time Spent (In Minutes): >30 minutes
== END 2022-04-16 14:35 | DRG 812 ==
LOC: ED 11:07 → EDINP 15:10 → SUATTDRO 15:10 → 2W 04-11 19:59